=== PATIENT | female | born 1975 | race Two or more races ===

== ENCOUNTER 2020-03-30 22:08 | Emergency (ER) | payer OTHER, SELFPAY ==
[2020-03-30 22:14] VITALS: BP 180/90; PULSE 115; RESP 18; TEMP 37.1; O2SAT 100; BMI 38.2
[2020-03-30] MEDS: Acetaminophen 325 MG TABLET 650 MG PO (22:20)
[2020-03-30 23:05] LABS: MANUAL DIFF FLAG NO
[2020-03-30 23:07] LABS: Basophils Percent Auto 0.2 % (0-2); Eosinophils Absolute Auto 0.1 X10*3/uL (0.0-0.4); Eosinophils Percent Auto 1.1 % (0-4); Hematocrit 41.4 % (37-47); Hemoglobin 13.6 g/dl (12.0-16.0); Imm Gran Abs Auto 0.02 X10*3/uL (0.00-0.03); Imm Gran Pct Auto 0.2 % (0.0-0.4); Lymphocytes Absolute Auto 1.5 X10*3/uL (1.2-4.9); Lymphocytes Percent Auto 13.9 % (20-40); Mean Corpuscular HGB Conc 32.9 g/dl (31.0-35.0); Mean Corpuscular Volume 85.4 fL (80-98); Mean Platelet Volume 11.1 fL (9.4-12.3); Monocytes Absolute Auto 0.7 X10*3/uL (0.1-1.2); Monocytes Percent Auto 6.5 % (2-11); Neutrophils Absolute Auto 8.2 X10*3/uL (2.0-8.3); Neutrophils Percent Auto 78.1 % (45-73); Platelet Count 252 X10*3/uL (160-400); Red Blood Count 4.85 X10*6/uL (4.20-5.50); Red Cell Distribution Width 12.2 % (11.0-16.0); White Blood Count 10.5 X10*3/uL (4.8-10.8)
[2020-03-30 23:30] LABS: Alanine Aminotransferase 28 U/L (0-31); Albumin Level 4.1 g/dL (3.5-5.0); Alkaline Phosphatase 89 U/L (39-117); Anion Gap 11 (12-20); Aspartate Amino Transferase 16 U/L (5-31); Bilirubin Total 0.3 mg/dL (0.0-1.0); Blood Urea Nitrogen 8 mg/dL (9-16); Carbon Dioxide 30 mmol/L (22-29); Chloride 103 mmol/L (96-108); Creatinine Clr Calc Pharmacy 99.8; Estimated Glomerular Filt Rate > 60; Glucose Random 118 mg/dL (60-115); Sodium 140 mmol/L (135-145); Total Protein 7.8 g/dL (6.5-8.0)
--- NOTE | 2020-03-30 23:56 | ED.BACK ---
HPI - Back Pain/Injury General Chief Complaint: Abdominal Pain Stated Complaint: FLANK PAIN Time Seen by Provider: 03/30/20 23:54 Source: patient Mode of arrival: ambulatory Limitations: no limitations History of Present Illness HPI Narrative: Patient with chronic low back pain after epidural 22 years ago usually does need any pain medication was doing fine 3 days ago at 03:00 she woke up with increased pain on the left side going to the left lower quadrant since then pain coming and going getting worse lately, get worse on movement denies any urinary complaints no fever no nausea no vomiting MD elicited complaint: back pain Pertinent past history: prior back pain Onset (ago): day(s) (2) Timing: constant Severity: moderate Similar Symptoms Previously: No Quality: dull Location: left lower back Radiation: abdomen Exacerbating factors: movement Relieving factors: none Related Data Home Medications Medication Instructions Recorded Confirmed loratadine 10 mg tablet 10 mg PO DAILY 02/09/20 03/07/20 Previous Rx's Medication Instructions Recorded levofloxacin 500 mg PO DAILY 7 Days #7 tab 03/31/20 tramadol 50 mg PO Q6H PRN #20 tab 03/31/20 Allergies Allergy/AdvReac Type Severity Reaction Status Date / Time Penicillins [PENICILLINS] Allergy Unknown HIVES Verified 02/09/20 16:54 Review of Systems Review of Systems: Constitutional : No Weight loss, No Fever, No Chills ENT/Mouth : No sore throat, No Rhinorrhea Eyes: No Eye Pain, No Swelling Cardiovascular : No Chest Pain, no Dyspnea on Exertion, No Orthopnea, No Edema, No Palpitations, no SOB Respiratory : No Cough, No Sputum Gastrointestinal : no Nausea, No Vomiting, No Diarrhea, No abdominal Pain, No Hematochezia, No Melena Genitourinary : No Dysuria, No Urinary Frequency Musculoskeletal : No joint pain, No Myalgias, No Joint Swelling Skin : No Skin Lesions, No rash Neuro : No Weakness, No Numbness, No Dizziness, No Headache Psych : No Anxiety/Panic, No Depression Heme/Lymph: No Bruising, No Lymphadenopathy Endocrine : No Polyuria, No Polydipsia All other systems reviewed and are negative PMFSH Past Medical History Medical History Allergic rhinitis Chondromalacia, patella Obesity (BMI 30-39.9) Surgical History History of tubal ligation Previous section Family History Family History Father Esophageal cancer Mother Diabetes Social History Social History Smoking Status: Never smoker Advance Directives: No Advance Directives Information Provided: No Physical Exam Vital Signs: Vital Signs: Last Vital Signs Temp 99.2 F 03/31/20 00:08 Pulse 111 H 03/31/20 00:08 Resp 20 03/31/20 00:08 BP 145/92 H 03/31/20 00:08 Pulse Ox 100 03/31/20 00:08 Body Mass Index 38.2 Appearance: Alert. Oriented X3. No acute distress. Eyes: Pupils equal, round and reactive to light. ENT: Pharynx normal. Neck: Normal inspection. Neck supple. CVS: Normal heart rate and rhythm. Pulses normal. Respiratory: No respiratory distress. Breath sounds normal. Abdomen: Soft and mild deep tenderness left lower quadrant no rebound tenderness or guarding, Bowel sounds are present, no mass palpable, no CVA tenderness Skin: Skin warm and dry. Normal skin color. Normal skin turgor. Back: Diffuse tenderness L3-L4 area with no deformity Extremities: No lower extremity edema. Neuro: Oriented X 3. No motor deficit. No sensory deficit. Normal reflexes MDM - Back Pain/Injury MDM Narrative Medical decision making narrative: Patient with low back pain and left-sided abdominal pain CT scan negative for any acute pathology workup showed patient has a UTI but patient denies any dysuria or urinary symptoms. Patient had UTI in the past and had E coli which was sensitive to Levaquin will give her Levaquin and advised to follow with PCP Lab Data Attestation: I reviewed the patient's lab results. Result diagrams: 03/30/20 22:59 03/30/20 22:59 Labs: Lab Results 03/30/20 03/30/20 12 Range/Units 22:59 22:59 22:59 WBC 10.5 (4.8-10.8) X10*3/uL RBC 4.85 (4.20-5.50) X10*6/uL Hgb 13.6 (12.0-16.0) g/dl Hct 41.4 (37-47) % MCV 85.4 (80-98) fL MCH 28.0 (27.0-33.0) pg MCHC 32.9 (31.0-35.0) g/dl RDW 12.2 (11.0-16.0) % Plt Count 252 (160-400) X10*3/uL MPV 11.1 (9.4-12.3) fL Immature Gran % (Auto) 0.2 (0.0-0.4) % Neut % (Auto) 78.1 H (45-73) % Lymph % (Auto) 13.9 L (20-40) % [place] % (Auto) 6.5 (2-11) % Eos % (Auto) 1.1 (0-4) % Baso % (Auto) 0.2 (0-2) % Lymph # (Auto) 1.5 (1.2-4.9) X10*3/uL [place] # (Auto) 0.7 (0.1-1.2) X10*3/uL Eos # (Auto) 0.1 (0.0-0.4) X10*3/uL Baso # (Auto) 0.0 (0.0-0.2) X10*3/uL Abs Immat Gran (auto) 0.02 (0.00-0.03) X10*3/uL Absolute Neuts (auto) 8.2 (2.0-8.3) X10*3/uL Absolute Nucleated RBC 0.000 (0.0-0.012) X10*3/uL Nucleated RBC % (auto) 0.0 (0.0-0.2) /100WBC Hold Blue Top SEE NOTE Sodium 140 (135-145) mmol/L Potassium 4.0 (3.3-5.1) mmol/l Chloride 103 (96-108) mmol/L Carbon Dioxide 30 H (22-29) mmol/L Anion Gap 11 L (12-20) BUN 8 L (9-16) mg/dL Creatinine 0.81 (0.5-1.4) mg/dL Estim Creat Clear Calc 99.8 Estimated GFR > 60 Random Glucose 118 H (60-115) mg/dL Calcium 9.0 (8.4-10.2) mg/dL Total Bilirubin 0.3 (0.0-1.0) mg/dL AST 16 (5-31) U/L ALT 28 (0-31) U/L Alkaline Phosphatase 89 (39-117) U/L Total Protein 7.8 (6.5-8.0) g/dL Albumin 4.1 (3.5-5.0) g/dL Urine Color Urine Appearance Urine pH (5.0-8.0) Ur Specific [place] (1.005-1.025) Urine Protein (NEG-TRACE) MG/DL Urine Glucose (UA) (NEG) MG/DL Urine Ketones (NEG) MG/DL Urine Blood (NEG) Urine Nitrite (NEG) Ur Leukocyte Esterase (NEG) Urine RBC (0) /HPF Urine WBC (0-4) /HPF Ur Squamous Epith Cells /LPF Urine Bacteria /LPF Urine Mucus /LPF 03/31/20 Range/Units 00:11 WBC (4.8-10.8) X10*3/uL RBC (4.20-5.50) X10*6/uL Hgb (12.0-16.0) g/dl Hct (37-47) % MCV (80-98) fL MCH (27.0-33.0) pg MCHC (31.0-35.0) g/dl RDW (11.0-16.0) % Plt Count (160-400) X10*3/uL MPV (9.4-12.3) fL Immature Gran % (Auto) (0.0-0.4) % Neut % (Auto) (45-73) % Lymph % (Auto) (20-40) % [place] % (Auto) (2-11) % Eos % (Auto) (0-4) % Baso % (Auto) (0-2) % Lymph # (Auto) (1.2-4.9) X10*3/uL [place] # (Auto) (0.1-1.2) X10*3/uL Eos # (Auto) (0.0-0.4) X10*3/uL Baso # (Auto) (0.0-0.2) X10*3/uL Abs Immat Gran (auto) (0.00-0.03) X10*3/uL Absolute Neuts (auto) (2.0-8.3) X10*3/uL Absolute Nucleated RBC (0.0-0.012) X10*3/uL Nucleated RBC % (auto) (0.0-0.2) /100WBC Hold Blue Top Sodium (135-145) mmol/L Potassium (3.3-5.1) mmol/l Chloride (96-108) mmol/L Carbon Dioxide (22-29) mmol/L Anion Gap (12-20) BUN (9-16) mg/dL Creatinine (0.5-1.4) mg/dL Estim Creat Clear Calc Estimated GFR Random Glucose (60-115) mg/dL Calcium (8.4-10.2) mg/dL Total Bilirubin (0.0-1.0) mg/dL AST (5-31) U/L ALT (0-31) U/L Alkaline Phosphatase (39-117) U/L Total Protein (6.5-8.0) g/dL Albumin (3.5-5.0) g/dL Urine Color YELLOW Urine Appearance HAZY Urine pH 6.5 (5.0-8.0) Ur Specific [place] 1.015 (1.005-1.025) Urine Protein 1+ H (NEG-TRACE) MG/DL Urine Glucose (UA) NEG (NEG) MG/DL Urine Ketones NEG (NEG) MG/DL Urine Blood 2+ H (NEG) Urine Nitrite POS H (NEG) Ur Leukocyte Esterase 1+ H (NEG) Urine RBC 5-9 H (0) /HPF Urine WBC 76-150 H (0-4) /HPF Ur Squamous Epith Cells 3+ /LPF Urine Bacteria 3+ /LPF Urine Mucus 1+ /LPF Discharge Plan Discharge Clinical Impression: UTI (urinary tract infection) Qualifiers: Urinary tract infection type: acute cystitis Hematuria presence: without hematuria Qualified Code(s): N30.00 - Acute cystitis without hematuria Patient Disposition: Home, Self-Care Instructions: Urinary Tract Infection in Women (ED) Additional Instructions: Drink plenty of fluids take antibiotic as prescribed. Report to ER/PCP if high fever /vomiting/abdominal pain Prescriptions: New levofloxacin 500 mg tablet 500 mg PO DAILY 7 Days Qty: 7 RF: 0 tramadol 50 mg tablet 50 mg PO Q6H PRN (Reason: pain) Qty: 20 RF: 0 No Action loratadine 10 mg tablet 10 mg PO DAILY RF: 0
[2020-03-31 00:08] VITALS: BP 145/92; PULSE 111; RESP 20; TEMP 37.3; O2SAT 100
--- NOTE | 2020-03-31 00:15 | CT_ITS ---
EXAMINATION: CT ABDOMEN AND PELVIS WITHOUT CONTRAST CLINICAL INFORMATION: Left lower quadrant pain. COMPARISON: None. TECHNIQUE: Contiguous axial thin section helical images of the abdomen and pelvis were performed without oral or IV contrast. The data set was reformatted in the coronal and sagittal planes and reviewed on an independent workstation. DLP: 943 mGy-cm. FINDINGS: The visualized lung bases are clear. The visualized portions of the heart are unremarkable. The liver is of normal size and attenuation without focal lesions nor intrahepatic biliary ductal dilation. There is high attenuation within the gallbladder lumen which could correspond to high attenuation bile or several calculi. There is no wall thickening or discernible pericholecystic fluid. The spleen, pancreas, adrenal glands are unremarkable. Both kidneys are of normal size and attenuation without hydronephrosis or nephrolithiasis. There is no abdominal free fluid. There is neither mesenteric nor retroperitoneal lymphadenopathy. Normal unopacified loops of small and large bowel are identified. There is no pelvic free fluid. The urinary bladder is unremarkable. There is neither pelvic nor inguinal lymphadenopathy. Bone windows: Neither sclerotic nor lytic bone lesions are identified. CT/CT abdomen pelvis wo con IMPRESSION: No acute abdominal or pelvic inflammatory or infectious processes. High attenuation bile or calculi within the gallbladder lumen without wall thickening or pericholecystic fluid. Automated exposure control (Care Dose) Adjustment of the mA and/or kv according to patient size (this includes techniques or standardized protocols for targeted exams where dose is matched to indication / reason for exam; i.e. extremities or head).
[2020-03-31 00:20] LABS: Appearance Urine HAZY; Color Urine YELLOW; Glucose Urine UA NEG (NEG); Leukocyte Esterase Urine 1+ (NEG); Nitrite Urine POS (NEG); PH 6.5 (5.0-8.0); Specific Gravity - Urine 1.015 (1.005-1.025); Urine Blood 2+ (NEG); Urine Ketones NEG (NEG); Urine Protein 1+ MG/DL (NEG-TRACE)
[2020-03-31 00:27] LABS: Bacteria Urine 3+ /LPF; Mucus Urine 1+ /LPF; Squamous Epithelial Cell Urine 3+ /LPF
[2020-03-31] MEDS: levoFLOXacin 500 MG TABLET PO (01:39)
== END 2020-03-31 02:36 | disposition home or self-care (01) ==
PROVIDERS: Emergency Provider Internal Medicine; PCP Internal Medicine
DX: N30.00 Acute cystitis without hematuria (principal); M54.5 Low back pain; R10.32 Left lower quadrant pain; Z79.899 Other long term (current) drug therapy
CPT/HCPCS: 36415; 74176; 80053; 81001; 85025; 87086; 87088; 87186; 99284

== ENCOUNTER 2020-04-07 09:36 | Outpatient (REF) | payer OTHER, SELFPAY ==
[2020-04-07 10:07] LABS: MANUAL DIFF FLAG NO
[2020-04-07 10:24] LABS: Basophils Percent Auto 0.1 % (0-2); Eosinophils Absolute Auto 0.2 X10*3/uL (0.0-0.4); Eosinophils Percent Auto 2.2 % (0-4); Hematocrit 43.6 % (37-47); Hemoglobin 13.9 g/dl (12.0-16.0); Imm Gran Abs Auto 0.04 X10*3/uL (0.00-0.03); Imm Gran Pct Auto 0.6 % (0.0-0.4); Lymphocytes Absolute Auto 1.8 X10*3/uL (1.2-4.9); Lymphocytes Percent Auto 24.5 % (20-40); Mean Corpuscular HGB Conc 31.9 g/dl (31.0-35.0); Mean Corpuscular Hemoglobin 27.2 pg (27.0-33.0); Mean Corpuscular Volume 85.3 fL (80-98); Monocytes Absolute Auto 0.7 X10*3/uL (0.1-1.2); Monocytes Percent Auto 9.5 % (2-11); Neutrophils Absolute Auto 4.6 X10*3/uL (2.0-8.3); Neutrophils Percent Auto 63.1 % (45-73); Platelet Count 290 X10*3/uL (160-400); Red Blood Count 5.11 X10*6/uL (4.20-5.50); Red Cell Distribution Width 12.4 % (11.0-16.0); White Blood Count 7.3 X10*3/uL (4.8-10.8)
[2020-04-07 10:38] LABS: Alanine Aminotransferase 28 U/L (0-31); Albumin Level 4.2 g/dL (3.5-5.0); Alkaline Phosphatase 76 U/L (39-117); Anion Gap 12 (12-20); Aspartate Amino Transferase 18 U/L (5-31); Bilirubin Total 0.4 mg/dL (0.0-1.0); Blood Urea Nitrogen 11 mg/dL (9-16); Calcium 9.3 mg/dL (8.4-10.2); Carbon Dioxide 25 mmol/L (22-29); Chloride 105 mmol/L (96-108); Cholesterol 196 mg/dL; Estimated Glomerular Filt Rate > 60; Glucose Fasting 105 mg/dL (60-99); HDL Cholesterol 39 mg/dL; LDL Cholesterol Calculated 136 mg/dl; Potassium 4.6 mmol/l (3.3-5.1); Sodium 137 mmol/L (135-145); Triglycerides 109 mg/dL
[2020-04-07 10:41] LABS: Glucose Urine UA NEG (NEG); Leukocyte Esterase Urine TRACE (NEG); Nitrite Urine NEG (NEG); Specific Gravity - Urine >= 1.030 (1.005-1.025); Urine Blood NEG (NEG); Urine Ketones NEG (NEG); Urine Protein NEG (NEG-TRACE)
[2020-04-07 10:55] LABS: Appearance Urine CLEAR; Color Urine YELLOW
[2020-04-07 11:00] LABS: TSH reflex Free T4 1.29 mIU/mL (0.32-4.0); Vitamin D 25-OH Total 19.6 ng/mL (>30)
[2020-04-07 11:12] LABS: Bacteria Urine 1+ /LPF; Mucus Urine 1+ /LPF; RBC Urine 0 /HPF (0); Squamous Epithelial Cell Urine 3+ /LPF; WBC Urine 0-2 /HPF (0-4)
== END 2020-04-07 09:37 | disposition home or self-care (01) ==
LOC: HO.LAB 09:36
PROVIDERS: PCP Internal Medicine; Visit Provider Internal Medicine
DX: Z00.00 Encounter for general adult medical examination without abnormal findings (principal); N12 Tubulo-interstitial nephritis, not specified as acute or chronic; E78.00 Pure hypercholesterolemia, unspecified; E66.9 Obesity, unspecified; E55.9 Vitamin D deficiency, unspecified; K21.9 Gastro-esophageal reflux disease without esophagitis
CPT/HCPCS: 36415; 80053; 80061; 81001; 82306; 84443; 85025; 87086

== ENCOUNTER 2020-05-26 11:16 | Outpatient (REF) | payer OTHER, SELFPAY ==
[2020-05-26 13:53] LABS: MANUAL DIFF FLAG NO
[2020-05-26 14:14] LABS: Basophils Percent Auto 0.2 % (0-2); Eosinophils Absolute Auto 0.1 X10*3/uL (0.0-0.4); Eosinophils Percent Auto 1.3 % (0-4); Hematocrit 43.4 % (37-47); Hemoglobin 14.1 g/dl (12.0-16.0); Imm Gran Abs Auto 0.03 X10*3/uL (0.00-0.03); Imm Gran Pct Auto 0.4 % (0.0-0.4); Lymphocytes Absolute Auto 1.2 X10*3/uL (1.2-4.9); Lymphocytes Percent Auto 14.6 % (20-40); Mean Corpuscular HGB Conc 32.5 g/dl (31.0-35.0); Mean Corpuscular Hemoglobin 27.4 pg (27.0-33.0); Mean Corpuscular Volume 84.4 fL (80-98); Mean Platelet Volume 12.2 fL (9.4-12.3); Monocytes Absolute Auto 0.5 X10*3/uL (0.1-1.2); Monocytes Percent Auto 6.3 % (2-11); Neutrophils Absolute Auto 6.5 X10*3/uL (2.0-8.3); Neutrophils Percent Auto 77.2 % (45-73); Platelet Count 282 X10*3/uL (160-400); Red Blood Count 5.14 X10*6/uL (4.20-5.50); White Blood Count 8.4 X10*3/uL (4.8-10.8)
[2020-05-26 14:44] LABS: Alanine Aminotransferase 33 U/L (0-31); Albumin Level 4.3 g/dL (3.5-5.0); Alkaline Phosphatase 89 U/L (39-117); Amylase 43 U/L (28-100); Anion Gap 11 (12-20); Aspartate Amino Transferase 23 U/L (5-31); Bilirubin Total 0.5 mg/dL (0.0-1.0); Blood Urea Nitrogen 9 mg/dL (9-16); Calcium 9.1 mg/dL (8.4-10.2); Carbon Dioxide 30 mmol/L (22-29); Chloride 101 mmol/L (96-108); Estimated Glomerular Filt Rate > 60; Glucose Random 92 mg/dL (60-115); Lipase 19 U/L (8-78); Potassium 3.9 mmol/L (3.3-5.1); Sodium 138 mmol/L (135-145); Total Protein 7.8 g/dL (6.5-8.0)
== END 2020-05-26 11:17 | disposition home or self-care (01) ==
LOC: HO.HMGCLDS 11:16
PROVIDERS: PCP Internal Medicine; Visit Provider Nurse Practitioner Family
DX: R10.13 Epigastric pain (principal)
CPT/HCPCS: 36415; 80053; 82150; 83690; 85025

== ENCOUNTER 2020-06-07 14:57 | Inpatient (IN) | payer OTHER, SELFPAY ==
[2020-06-07] VITALS (8 sets, daily range): BP systolic 120–160; BP diastolic 78–98; PULSE 70–80; RESP 18–20; TEMP 36.6–37; O2SAT 96–98; BMI 41.0
--- NOTE | ~2020-06-07 | MR_ITS ---
EXAMINATION: MR ABDOMEN WITHOUT CONTRAST CLINICAL INFORMATION: Gallstones. Evaluate for common bile duct stone. COMPARISON: Previous abdominal ultrasound from yesterday and CT scan of the abdomen and pelvis March 2020 TECHNIQUE: MR abdomen is performed without gadolinium contrast. MRCP sequences were also performed. Exam is limited due to motion artifact. FINDINGS: LUNG BASES: The visualized lung bases are unremarkable. LIVER, GALLBLADDER, AND BILIARY TREE: The liver is normal in size, smooth in contour, and normal in signal. No focal hepatic lesion or intrahepatic biliary ductal dilatation is present. There are gallstones in the gallbladder. The gallbladder is normal in size. There may be mild gallbladder wall thickening and edema. Gallbladder wall thickness measures 4-5 mm. Extrahepatic bile ducts are normal in caliber. MRCP sequences are limited due to motion artifact. No common bile duct stone is seen. PANCREAS: Unremarkable. SPLEEN: Unremarkable. ADRENAL GLANDS: Unremarkable. KIDNEYS AND URETERS: The kidneys are normal in size and shape. No hydronephrosis. No perinephric stranding. GASTROINTESTINAL TRACT: No bowel obstruction. No ascites or fluid collection. ABDOMINAL WALL: No significant hernia is appreciated. LYMPH NODES: No lymphadenopathy. VASCULAR: Unremarkable. OSSEOUS STRUCTURES: Marrow signal normal. MR/MR MRCP IMPRESSION: Limited exam due to motion artifact. No intrahepatic or extrahepatic biliary duct dilatation or common bile duct stone seen. Gallstones in the gallbladder and question mild gallbladder wall thickening measuring 4-5 mm and gallbladder wall edema. Findings are questionable for acute cholecystitis. This could be further evaluated with HIDA scan if clinically indicated.
--- NOTE | ~2020-06-07 | US_ITS ---
EXAMINATION: US ABDOMEN LIMITED CLINICAL INFORMATION: Right upper quadrant pain with elevated AST, ALT and alkaline phosphatase. COMPARISON: None TECHNIQUE: Real-time imaging of the right upper quadrant abdominal viscera. FINDINGS: PANCREAS: Normal. LIVER: Normal. The liver is normal in size. The liver contour is normal. Parenchymal echogenicity is normal. No focal hepatic lesion. There is no intrahepatic biliary duct dilatation seen. GALLBLADDER: 3 gallstones are present, the largest measuring 1.8 x 1.2 x 1.7 cm. The gallbladder is physiologically distended without evidence wall thickening or pericholecystic fluid. COMMON BILE DUCT: Common bile duct is mildly dilated at 0.9 cm. No stones are seen in the common bile duct.. RIGHT KIDNEY: No hydronephrosis. No renal calculi or focal parenchymal lesions. The kidney measures 11.9 cm in maximum dimension. FREE FLUID: None. US/US abdomen limited IMPRESSION: 1. Cholelithiasis without evidence of cholecystitis. 2. Mild dilatation of the common bile duct at 0.9 cm without intrahepatic biliary ductal dilatation.
[2020-06-07 17:16] LABS: MANUAL DIFF FLAG NO
[2020-06-07 17:19] LABS: Basophils Percent Auto 0.1 % (0-2); Eosinophils Absolute Auto 0.1 X10*3/uL (0.0-0.4); Eosinophils Percent Auto 1.2 % (0-4); Hemoglobin 14.1 g/dl (12.0-16.0); Imm Gran Abs Auto 0.02 X10*3/uL (0.00-0.03); Imm Gran Pct Auto 0.2 % (0.0-0.4); Lymphocytes Absolute Auto 1.1 X10*3/uL (1.2-4.9); Lymphocytes Percent Auto 12.2 % (20-40); Mean Corpuscular HGB Conc 33.6 g/dl (31.0-35.0); Mean Corpuscular Volume 83.3 fL (80-98); Mean Platelet Volume 11.4 fL (9.4-12.3); Monocytes Absolute Auto 0.7 X10*3/uL (0.1-1.2); Monocytes Percent Auto 7.6 % (2-11); Neutrophils Absolute Auto 6.8 X10*3/uL (2.0-8.3); Neutrophils Percent Auto 78.7 % (45-73); Platelet Count 244 X10*3/uL (160-400); Red Blood Count 5.04 X10*6/uL (4.20-5.50); Red Cell Distribution Width 12.5 % (11.0-16.0); White Blood Count 8.6 X10*3/uL (4.8-10.8)
[2020-06-07 17:31] LABS: Glucose Urine UA NEG (NEG); Leukocyte Esterase Urine NEG (NEG); Nitrite Urine NEG (NEG); PH 6.5 (5.0-8.0); Specific Gravity - Urine 1.015 (1.005-1.025); Urine Blood NEG (NEG); Urine Ketones NEG (NEG); Urine Protein NEG (NEG-TRACE)
[2020-06-07 17:35] LABS: Appearance Urine CLEAR; Color Urine YELLOW
[2020-06-07 18:07] LABS: Alanine Aminotransferase 433 U/L (0-31); Albumin Level 4.3 g/dL (3.5-5.0); Alkaline Phosphatase 171 U/L (39-117); Anion Gap 14 (12-20); Aspartate Amino Transferase 406 U/L (5-31); Bilirubin Total 3.7 mg/dL (0.0-1.0); Blood Urea Nitrogen 8 mg/dL (9-16); Carbon Dioxide 28 mmol/L (22-29); Chloride 103 mmol/L (96-108); Creatinine Clr Calc Pharmacy 98.6; Estimated Glomerular Filt Rate > 60; Glucose Random 95 mg/dL (60-115); Lipase 32 U/L (8-78); Potassium 3.8 mmol/L (3.3-5.1); Sodium 141 mmol/L (135-145); Total Protein 7.9 g/dL (6.5-8.0)
--- NOTE | 2020-06-07 19:46 | ED.ABDPAIN ---
HPI - Abdominal Pain General Chief Complaint: Abdominal Pain Stated Complaint: Abdominal pain Time Seen by Provider: 06/07/20 21:14 Source: patient Mode of arrival: ambulatory Limitations: no limitations History of Present Illness HPI narrative: 44-year-old female with past medical history of pyelonephritis, GERD, hyperlipidemia, obesity, chondromalacia of the patella presents with approximately 2 months of right upper quadrant abdominal pain. She presents today because pain is 10/10 and radiates to her right shoulder. Pain gets worse after eating, she did eat Portuguese food last night which increased her pain. She has not been able to eat since. She does not report any prior abdominal surgeries except for C-sections. She does not report any fevers, chills, chest pain or pressure, palpitations, abdominal distention, dysuria, hematuria, melena, hematochezia, diarrhea, constipation, dizziness, weakness, loss of balance, or any other concerning symptoms. MD elicited complaint: abdominal pain Onset (ago): month(s) (2) Pain Consistency: constant (Over the past 3 days) and intermittent (Over the past 2 months) Location: RUQ Severity: severe Pain scale (0-10): 10 Quality: stabbing and aching Radiation: back Exacerbating factors: eating and movement Relieving factors: nothing Treatments prior to arrival: NSAIDs Related Data Home Medications Medication Instructions Recorded Confirmed loratadine 10 mg tablet 10 mg PO DAILY 02/09/20 06/07/20 albuterol sulfate 90 mcg/actuation 1 - 2 puff INHALATION Q6H PRN 04/05/20 06/07/20 aerosol inhaler Previous Rx's Medication Instructions Recorded omeprazole magnesium 20 mg 20 mg PO DAILY PRN 90 Days #90 tab 04/05/20 tablet,delayed release famotidine 20 mg tablet 20 mg PO BEDTIME #30 tab 05/26/20 Allergies Allergy/AdvReac Type Severity Reaction Status Date / Time Penicillins [PENICILLINS] Allergy Unknown HIVES Verified 06/07/20 16:46 Review of Systems Review of Systems Constitutional: No Weight loss, No Fever, No Chills, No Night Sweats, No Fatigue, No Malaise ENT/Mouth: No Hearing loss, No Ear Pain, No Nasal Congestion, No Sinus Pain, No sore throat, No Rhinorrhea, No Swallowing Difficulty Eyes: No Eye Pain, No Swelling, No Redness, No Vision Changes Cardiovascular: No Chest Pain, No SOB, No Dyspnea on Exertion, No Orthopnea, No Edema, No Palpitations Respiratory: No Cough, No Sputum, No Wheezing, No Smoke Exposure, No Dyspnea Gastrointestinal: Positive right upper quadrant abdominal pain radiating to the back, Positive Nausea, no Vomiting, no Diarrhea, No Hematochezia, No Melena Genitourinary: no irregular bleeding, No Dysuria, No Urinary Frequency, No Hematuria, No Urinary Incontinence, No Urgency, No Flank Pain, No Urinary Flow Changes, No Hesitancy Musculoskeletal: No joint pain, No Myalgias, No Joint Swelling Skin: No Skin Lesions, No rash Neuro: No Weakness, No Numbness, No Paresthesias, No Loss of Consciousness, No Dizziness, No Headache Psych: No Anxiety/Panic, No Depression, No SI/HI/AH/VH, No Social Issues Heme/Lymph: No Bruising, No Bleeding,No Lymphadenopathy Endocrine: No Polyuria, No Polydipsia, No Temperature Intolerance Yes all other systems are reviewed and are negative Physical Exam Vital Signs: Vital Signs: Last Vital Signs Temp 97.3 F 06/08/20 00:00 Pulse 73 06/08/20 00:00 Resp 18 06/08/20 00:00 BP 132/67 06/08/20 00:00 Pulse Ox 98 06/08/20 00:00 Body Mass Index 41.0 Appearance: Alert. Oriented X3. Moderate distress. Eyes: Pupils equal, round and reactive to light. EOMI, sclera nonicteric ENT: Pharynx normal. Moist mucous membranes Neck: Normal inspection. Neck supple. No JVD CVS: Normal heart rate and rhythm. Pulses normal. Respiratory: No respiratory distress. Lung sounds clear to auscultation all lobes Abdomen: Soft and positive Munoz's, nontender otherwise Skin: Skin warm and dry. Normal skin color. Normal skin turgor. Extremities: No lower extremity edema. Neuro: No motor deficit. No sensory deficit. Cranial nerves 2-12 intact, gait well balanced well coordinated Course Course Course Narrative: 44-year-old female with past medical history of pyelonephritis, GERD, hyperlipidemia, obesity, chondromalacia of the patella presents with approximately 2 months of right upper quadrant abdominal pain. Labs indicate elevated bilirubin is 3.7, AST 406, ALT 433, alk-phos 171. Highly suspicious for cholecystitis, cholelithiasis. Will order ultrasound of the right upper quadrant and give pain management with fluid resuscitation. Ultrasound indicative of cholelithiasis without cholecystitis or obstruction, bile duct dilated at 0.9 mm, tiger text discussion with Dr Steel. Plan of care is to admit to surgery. Detailed discussion with patient regarding all diagnostic findings as well as plan for admission, patient verbalized understanding of and agrees to plan of care. Consultations Consultation #1: Damián Time: 21:19 MDM - Abdominal Pain Differential Diagnosis Differential diagnosis: Likely abdominal pain, acute appendicitis, calculus of kidney, constipation and pancreatitis Differential diagnosis narrative:: Cholelithiasis, cholecystitis Medical Records Attestation: I reviewed the patient's medical records. Lab Data Attestation: I reviewed the patient's lab results. Result diagrams: 06/07/20 17:08 06/07/20 17:08 Labs: Lab Results 06/07/20 06/07/20 06/07/20 Range/Units 17:08 17:08 17:08 WBC 8.6 (4.8-10.8) X10*3/uL RBC 5.04 (4.20-5.50) X10*6/uL Hgb 14.1 (12.0-16.0) g/dl Hct 42.0 (37-47) % MCV 83.3 (80-98) fL MCH 28.0 (27.0-33.0) pg MCHC 33.6 (31.0-35.0) g/dl RDW 12.5 (11.0-16.0) % Plt Count 244 (160-400) X10*3/uL MPV 11.4 (9.4-12.3) fL Immature Gran % (Auto) 0.2 (0.0-0.4) % Neut % (Auto) 78.7 H (45-73) % Lymph % (Auto) 12.2 L (20-40) % Andrew % (Auto) 7.6 (2-11) % Eos % (Auto) 1.2 (0-4) % Baso % (Auto) 0.1 (0-2) % Lymph # (Auto) 1.1 L (1.2-4.9) X10*3/uL Andrew # (Auto) 0.7 (0.1-1.2) X10*3/uL Eos # (Auto) 0.1 (0.0-0.4) X10*3/uL Baso # (Auto) 0.0 (0.0-0.2) X10*3/uL Abs Immat Gran (auto) 0.02 (0.00-0.03) X10*3/uL Absolute Neuts (auto) 6.8 (2.0-8.3) X10*3/uL Absolute Nucleated RBC 0.000 (0.0-0.012) X10*3/uL Nucleated RBC % (auto) 0.0 (0.0-0.2) /100WBC Hold Blue Top SEE NOTE Sodium (135-145) mmol/L Potassium (3.3-5.1) mmol/L Chloride (96-108) mmol/L Carbon Dioxide (22-29) mmol/L Anion Gap (12-20) BUN (9-16) mg/dL Creatinine (0.5-1.4) mg/dL Estim Creat Clear Calc Estimated GFR Random Glucose (60-115) mg/dL Calcium (8.4-10.2) mg/dL Total Bilirubin (0.0-1.0) mg/dL AST (5-31) U/L ALT (0-31) U/L Alkaline Phosphatase (39-117) U/L Total Protein (6.5-8.0) g/dL Albumin (3.5-5.0) g/dL Lipase (8-78) U/L Urine Color YELLOW Urine Appearance CLEAR Urine pH 6.5 (5.0-8.0) Ur Specific [place] 1.015 (1.005-1.025) Urine Protein NEG (NEG-TRACE) MG/DL Urine Glucose (UA) NEG (NEG) MG/DL Urine Ketones NEG (NEG) MG/DL Urine Blood NEG (NEG) Urine Nitrite NEG (NEG) Ur Leukocyte Esterase NEG (NEG) 06/07/20 Range/Units 17:08 WBC (4.8-10.8) X10*3/uL RBC (4.20-5.50) X10*6/uL Hgb (12.0-16.0) g/dl Hct (37-47) % MCV (80-98) fL MCH (27.0-33.0) pg MCHC (31.0-35.0) g/dl RDW (11.0-16.0) % Plt Count (160-400) X10*3/uL MPV (9.4-12.3) fL Immature Gran % (Auto) (0.0-0.4) % Neut % (Auto) (45-73) % Lymph % (Auto) (20-40) % [place] % (Auto) (2-11) % Eos % (Auto) (0-4) % Baso % (Auto) (0-2) % Lymph # (Auto) (1.2-4.9) X10*3/uL Andrew # (Auto) (0.1-1.2) X10*3/uL Eos # (Auto) (0.0-0.4) X10*3/uL Baso # (Auto) (0.0-0.2) X10*3/uL Abs Immat Gran (auto) (0.00-0.03) X10*3/uL Absolute Neuts (auto) (2.0-8.3) X10*3/uL Absolute Nucleated RBC (0.0-0.012) X10*3/uL Nucleated RBC % (auto) (0.0-0.2) /100WBC Hold Blue Top Sodium 141 (135-145) mmol/L Potassium 3.8 (3.3-5.1) mmol/L Chloride 103 (96-108) mmol/L Carbon Dioxide 28 (22-29) mmol/L Anion Gap 14 (12-20) BUN 8 L (9-16) mg/dL Creatinine 0.79 (0.5-1.4) mg/dL Estim Creat Clear Calc 98.6 Estimated GFR > 60 Random Glucose 95 (60-115) mg/dL Calcium 9.0 (8.4-10.2) mg/dL Total Bilirubin 3.7 H (0.0-1.0) mg/dL AST 406 H (5-31) U/L ALT 433 H (0-31) U/L Alkaline Phosphatase 171 H D (39-117) U/L Total Protein 7.9 (6.5-8.0) g/dL Albumin 4.3 (3.5-5.0) g/dL Lipase 32 (8-78) U/L Urine Color Urine Appearance Urine pH (5.0-8.0) Ur Specific [place] (1.005-1.025) Urine Protein (NEG-TRACE) MG/DL Urine Glucose (UA) (NEG) MG/DL Urine Ketones (NEG) MG/DL Urine Blood (NEG) Urine Nitrite (NEG) Ur Leukocyte Esterase (NEG) Imaging Data Abdominal ultrasound: Attestation: I personally reviewed and interpreted this imaging study as follows: Radiologist's impression: EXAMINATION: US ABDOMEN LIMITED CLINICAL INFORMATION: Right upper quadrant pain with elevated AST, ALT and alkaline phosphatase. COMPARISON: None TECHNIQUE: Real-time imaging of the right upper quadrant abdominal viscera. FINDINGS: PANCREAS: Normal. LIVER: Normal. The liver is normal in size. The liver contour is normal. Parenchymal echogenicity is normal. No focal hepatic lesion. There is no intrahepatic biliary duct dilatation seen. GALLBLADDER: 3 gallstones are present, the largest measuring 1.8 x 1.2 x 1.7 cm. The gallbladder is physiologically distended without evidence wall thickening or pericholecystic fluid. COMMON BILE DUCT: Common bile duct is mildly dilated at 0.9 cm. No stones are seen in the common bile duct.. RIGHT KIDNEY: No hydronephrosis. No renal calculi or focal parenchymal lesions. The kidney measures 11.9 cm in maximum dimension. FREE FLUID: None. US/US abdomen limited IMPRESSION: 1. Cholelithiasis without evidence of cholecystitis. 2. Mild dilatation of the common bile duct at 0.9 cm without intrahepatic biliary ductal dilatation. Critical Care Time Critical Care Time Critical Care Time: Yes Total Critical Care Time: 45 Attestation: I have personally provided critical care time exclusive of time spent on separately billable procedures. Time includes review of laboratory data, radiology results, discussion with consultants, and monitoring for potential decompensation. Interventions were performed as documented. Discharge Plan Discharge Clinical Impression: Cholelithiasis Qualifiers: Cholelithiasis location: gallbladder Cholecystitis presence: without cholecystitis Biliary obstruction: without biliary obstruction Qualified Code(s): K80.20 - Calculus of gallbladder without cholecystitis without obstruction Patient Disposition: Admitted As Inpatient Interventions: Admission Worksheet (ED) Last Done: 06/08/20 00:07 Discharge Date/Time: 06/08/20 00:56 [facility] Past Medical History Attestation statement: The following information was validated with the patient. Source: old records reviewed Medical History Allergic rhinitis Annual physical exam Chondromalacia patellae of right knee Chondromalacia, patella GERD without esophagitis Obesity (BMI 30-39.9) Pure hypercholesterolemia Vitamin D deficiency Surgical History History of tubal ligation Previous section Family History Family History Father Esophageal cancer Mother Diabetes Social History Social History Alcohol intake: current Alcohol intake frequency: holidays/special occasions only Smoking Status: Never smoker Advance Directives: No Advance Directives Information Provided: Yes
[2020-06-07] MEDS: 0.9 % Sodium Chloride 1,000 ML 999 ML IVCONT (20:00)
[2020-06-07] MEDS: ondansetron HCL 4 MG/2 ML VIAL IVPUSH (20:02)
[2020-06-07] MEDS: Morphine Sulfate 4 MG/ML CARTRIDGE IVPUSH (20:02)
[2020-06-07] MEDS: HYDROmorphone HCl 1 MG/ML SYRINGE IVPUSH (21:54)
[2020-06-07 22:07] LABS: COVID-19 Test Negative (Negative)
[2020-06-07] MEDS: levoFLOXacin/D5W 500 MG/100 ML PIGGYBACK 100 MG IV (22:10)
[2020-06-07] MEDS: metroNIDAZOLE/NS 500 MG/100 ML PIGGYBACK 100 MG IV (23:29)
--- NOTE | 2020-06-07 23:39 | PC.NURSE ---
rn will call back for report.
[2020-06-08] VITALS: BP 132/67; PULSE 73; RESP 18; TEMP 36.3; O2SAT 98
[2020-06-08 00:13] VITALS: BMI 41.8
[2020-06-08] MEDS: Dextrose 5 % and Lactated Ring 1,000 ML 125 ML IVCONT ×4 (00:59→20:39)
[2020-06-08] MEDS: ondansetron HCL 4 MG/2 ML VIAL IVPUSH (01:06)
[2020-06-08] MEDS: 0.9 % Sodium Chloride Flush 3 ML SYRINGE IVFLUSH ×4 (01:06→23:41)
--- NOTE | 2020-06-08 05:34 | PM.HPGS ---
History of Present Illness History of Present Illness Date of Service: 06/08/20 Chief complaint: Abdominal pain Narrative: Jose Keen is a 44 year old female presenting with complaints of epigastric abdominal pain 10 out of 10 in severity starting after eating Indonesian food for dinner. She reports similar pain for the last two months, this being the worst episode. She denies fever, chills, or other bowel changes but does report nausea and vomiting. Work up in the ED revealed elevated LFTs and a normal WBC. US of the abdomen reveals gallstones in the gallbladder and a mildly dilated CBD. No Wall thickening or pericholecystic fluid. No CBD stones are noted. This morning, she reports feeling much improved with no further abdominal pain, nausea or vomiting. Review of Systems Review of Systems: Yes all other systems are reviewed and are negative Constitutional: Constitutional: Denies chills, Denies fever(s), Denies headache(s) and Denies poor appetite ENT: Denies dizziness and Denies headache(s) Cardiovascular: Cardiovascular: Denies chest pain, Denies rapid heart rate, Denies palpitations and Denies slow heart rate Respiratory: Respiratory: Denies chest congestion, Denies cough, Denies pain on inspiration and Denies wheezing Gastrointestinal: Gastrointestinal: Reports abdominal pain, Denies bloating, Denies change in stool character, Denies constipation, Denies diarrhea, Reports nausea, Reports vomiting and Denies hematemesis Musculoskeletal: Musculoskeletal: Denies back pain, Denies arthralgias, Denies joint swelling and Denies numbness Integumentary/Breasts: Skin/Breast: Denies change in pigmentation, Denies erythema and Denies rash Neurologic: Denies dizziness, Denies headache(s) and Denies numbness Psychiatric: Psychiatric: Denies anxiety and Denies depression Endocrine: Endocrine: Denies palpitations Hematologic/Lymphatic: Hematologic/Lymphatic: Denies easy bleeding, Denies easy bruising and Denies lymphadenopathy Allergic/Immunologic: Allergic/Immunologic: Denies wheezing PMFSH Past Medical History Medical History Allergic rhinitis Annual physical exam Chondromalacia patellae of right knee Chondromalacia, patella GERD without esophagitis Obesity (BMI 30-39.9) Pure hypercholesterolemia Vitamin D deficiency Family History Family History Father Esophageal cancer Mother Diabetes Surgical History Surgical History History of tubal ligation Previous section Social History Social History Household Members: Spouse Housing: House Do you presently have visiting nurse or other home services: No Alcohol intake: current Alcohol intake frequency: holidays/special occasions only Smoking Status: Never smoker Use of substances other than those prescribed or required for medical reasons: No Have you been hit, kicked, punched, or otherwise hurt by someone within the past year? If so, by whom?: No Do you feel safe in your current relationship?: Yes Is there a partner from a previous relationship who is making you feel unsafe now?: No Are you made to feel afraid or neglected: No Advance Directives: No Advance Directives Information Provided: Yes Do you have thoughts of harming others: None Do you have a plan to hurt others: No Plan Recently lost weight without trying: No Meds Allergies Allergy/AdvReac Type Severity Reaction Status Date / Time Penicillins [PENICILLINS] Allergy Unknown HIVES Verified 06/07/20 16:46 Active Medications: Current Medications Generic Name Dose Route Start Last Admin Trade Name Freq PRN Reason Stop Dose Admin Acetaminophen 650 mg 06/07/20 21:29 Acetaminophen 325 Mg Tablet PO Q6H PRN Pain, Mild (Pain Scale 1-3) Docusate Sodium 100 mg 06/07/20 21:29 Docusate Sodium 100 Mg Capsule PO DAILY PRN Constipation Hydromorphone HCl 0.5 mg 06/07/20 21:35 Hydromorphone Hcl 0.5 Mg/0.5 Ml Syringe IVPUSH Q4H PRN Pain, Severe (Pain Scale 7-10) Dextrose/Lactated Ringer's 1,000 mls @ 125 mls/hr 06/07/20 21:30 06/08/20 00:59 D5lr IVCONT 125 mls/hr .Q8H LUIS ALFREDO Administration Levofloxacin 500 mg in 100 mls @ 100 mls/hr 06/07/20 22:00 06/08/20 00:58 Levaquin IV Infused Q24H LUIS ALFREDO Infusion Metronidazole 500 mg in 100 mls @ 100 mls/hr 06/07/20 22:00 06/08/20 00:58 Flagyl IV Infused Q8H LUIS ALFREDO Infusion Ondansetron HCl 4 mg 06/07/20 21:29 06/08/20 01:06 Ondansetron Hcl 4 Mg/2 Ml Vial IVPUSH 4 mg Q8H PRN Administration Nausea and Vomiting Oxycodone HCl 5 mg 06/07/20 21:35 Oxycodone Hcl Immed Release 5 Mg Tablet PO Q6H PRN Pain, Moderate (Pain Scale 4-6 Pharmacy Consult 1 each 06/07/20 21:29 Consult Rx Perform Med Rec MISCELLANE ONCE PRN Consult order Sodium Chloride 3 ml 06/08/20 00:00 06/08/20 01:06 0.9 % Sodium Chloride Flush 3 Ml Syringe IVFLUSH 3 ml QSHIFT LUIS ALFREDO Administration Zolpidem Tartrate 5 mg 06/07/20 21:29 Zolpidem Tartrate 5 Mg Tablet PO BEDTIME PRN Insomnia Home Medications Medication Instructions Recorded Confirmed Last Taken Type loratadine 10 mg tablet 10 mg PO DAILY 02/09/20 06/07/20 Unknown History albuterol sulfate 90 mcg/actuation 1 - 2 puff INHALATION Q6H PRN 04/05/20 06/07/20 Unknown History aerosol inhaler Physical Exam Vital Signs: Vital Signs: Last Vital Signs Temp 97.3 F 06/08/20 00:00 Pulse 73 06/08/20 00:00 Resp 18 06/08/20 00:00 BP 132/67 06/08/20 00:00 Pulse Ox 98 06/08/20 00:00 Body Mass Index 41.8 Const: General: cooperative, healthy appearing, comfortable, no acute distress, well developed, alert and awake Orientation/consciousness: patient oriented x3 Eyes: General: appearance normal, both eyes and all related structures Sclerae: sclerae normal EOM: EOMs intact bilaterally Neck: Neck: Yes normal visual inspection, Yes full ROM and Yes supple Resp: Effort & Inspection: normal respiratory effort, no cough, not labored, no stridor and not tachypneic Cardio: Jugular venous distension: no JVD Rate: regular rate Rhythm: regular rhythm GI: Inspection: Yes normal to inspection Palpation (GI): Soft to palpation, nontender (negative Munoz's sign), no guarding, not rigid and No Rebound tenderness present Percussion: Yes normal to percussion Auscultation: normal bowel sounds Rectal Exam - Female: deferred Skin: General skin exam: no rashes or lesions noted and no jaundice Wounds: no wounds Neuro: General: patient oriented x3 Extrem: General: Yes full ROM Results Results Labs: Short CBC 06/07/20 Range/Units 17:08 WBC 8.6 (4.8-10.8) X10*3/uL Hgb 14.1 (12.0-16.0) g/dl Hct 42.0 (37-47) % Plt Count 244 (160-400) X10*3/uL BMP 06/07/20 17:08 Sodium 141 Potassium 3.8 Chloride 103 Carbon Dioxide 28 BUN 8 L Creatinine 0.79 Calcium 9.0 Liver Function 06/07/20 Range/Units 17:08 Total Bilirubin 3.7 H (0.0-1.0) mg/dL AST 406 H (5-31) U/L ALT 433 H (0-31) U/L Alkaline Phosphatase 171 H D (39-117) U/L Albumin 4.3 (3.5-5.0) g/dL Urine 06/07/20 Range/Units 17:08 Urine Color YELLOW Urine Appearance CLEAR Urine pH 6.5 (5.0-8.0) Ur Specific [place] 1.015 (1.005-1.025) Urine Protein NEG (NEG-TRACE) MG/DL Urine Glucose (UA) NEG (NEG) MG/DL Assessment and Plan (1) Acute cholecystitis due to biliary calculus: Status: Acute 44 year old female patient presenting with multiple episodes of abdominal pain initially in the epigastrium, radiating to the right upper quadrant, found to have tenderness in the right upper quadrant last night, with elevated LFT's. U/S revealed gallstones in the gallbladder and a mildly dilated CBD with no stones visable. Findings suggestive of a passed stone. Patient reports nausea is improved, although feels the Dilaudid also made her nauseated. Will switch to IV Morphine prn pain. I discussed treatment options including discharge to home vs. Laparoscopic or possible open cholecystectomy. After a review of the procedure, alternatives and risks, she consents to a Laparoscopic or possible open cholecystectomy. She will be added on to the OR schedule for later today. Procedures Date of Service Date of Service: 06/08/20
[2020-06-08] MEDS: metroNIDAZOLE/NS 500 MG/100 ML PIGGYBACK 100 MG IV ×3 (05:57→22:38)
--- NOTE | 2020-06-08 07:44 | MHC.SHP ---
Pre-Procedural Eval Section A The patient is an INPATIENT: Yes Section B Chief Complaint: Abdominal pain Allergies: Allergies Allergy/AdvReac Type Severity Reaction Status Date / Time Penicillins [PENICILLINS] Allergy Unknown HIVES Verified 06/07/20 16:46 Plan Diagnosis/Plan: Unchanged I have reviewed the history and physical and performed a pertinent physical examination on my patient. No changes have occurred unless specified.
[2020-06-08 07:48] VITALS: BP 132/65; PULSE 76; RESP 18; TEMP 36.7; O2SAT 97
[2020-06-08 08:52] LABS: Alanine Aminotransferase 364 U/L (0-31); Albumin Level 3.6 g/dL (3.5-5.0); Alkaline Phosphatase 166 U/L (39-117); Aspartate Amino Transferase 251 U/L (5-31); Bilirubin Direct 3.4 mg/dL (0.0-0.5); Bilirubin Total 4.7 mg/dL (0.0-1.0); Total Protein 6.5 g/dL (6.5-8.0)
--- NOTE | 2020-06-08 09:04 | MHC.CM.PN ---
EMR REVIEWED, PT ADMITTED FOR ABDOMINAL PAIN AND WILL HAVE CHOLEY TODAY 06/08/20, CM MET WITH PT WHO LIVED WITH , PT IS INDEPENDENT WITH ALL CARE AND DENIES USE OF DME, NO HOME SERVICES, PT VERIFIES PCP AND PHARMACY, PT DENIES HAVING A HEALTH CARE PROXY AND DECLINES ASSISTANCE COMPLETING ONE AT THIS TIME. DISCHARGE PLAN: HOME SELF-CARE [facility] TO TRANSPORT : [facility] [phone]
--- NOTE | 2020-06-08 10:19 | HO.ANESPROP2 ---
Documented by User: Carroll Narayanan 06/08/20 10:20 [facility] Active Problems Active Problems: All Active Problems (Updated 06/08/20 @ 05:40 by Dayton Steel MD) Acute cholecystitis due to biliary calculus (Acute) Cholelithiasis (Acute) Nausea & vomiting (Acute) Epigastric pain (Acute) Pyelonephritis (Acute) Vitamin D deficiency (Acute) GERD without esophagitis (Acute) Chondromalacia patellae of right knee (Acute) Pure hypercholesterolemia (Acute) Annual physical exam (Acute) Obesity (BMI 30-39.9) (Acute) Chondromalacia, patella (Acute) Allergic rhinitis (Acute) Past Medical History Medical History Allergic rhinitis Annual physical exam Chondromalacia patellae of right knee Chondromalacia, patella GERD without esophagitis Obesity (BMI 30-39.9) Pure hypercholesterolemia Vitamin D deficiency Family History Family History Father Esophageal cancer Mother Diabetes Surgical History Surgical History History of tubal ligation Previous section Social History Social History Household Members: Spouse Housing: House Do you presently have visiting nurse or other home services: No Alcohol intake: current Alcohol intake frequency: holidays/special occasions only Smoking Status: Never smoker Use of substances other than those prescribed or required for medical reasons: No Currently Displaying Signs/Symptoms of Drug Intoxication Withdrawal: No Have you been hit, kicked, punched, or otherwise hurt by someone within the past year? If so, by whom?: No Do you feel safe in your current relationship?: Yes Is there a partner from a previous relationship who is making you feel unsafe now?: No Are you made to feel afraid or neglected: No Advance Directives: No Advance Directives Information Provided: Yes Do you have thoughts of harming others: None Do you have a plan to hurt others: No Plan Recently lost weight without trying: No service: No Current occupational status: employed Meds Allergies Allergy/AdvReac Type Severity Reaction Status Date / Time Penicillins [PENICILLINS] Allergy Unknown HIVES Verified 06/07/20 16:46 Active Medications: Current Medications Generic Name Dose Route Start Last Admin Trade Name Wallace PRN Reason Stop Dose Admin Acetaminophen 650 mg 06/07/20 21:29 Acetaminophen 325 Mg Tablet PO Q6H PRN Pain, Mild (Pain Scale 1-3) Albuterol Sulfate 2 puff 06/08/20 05:41 Albuterol Sulfate 90 Mcg 8 Gm Inhaler INHALE Q6H PRN Shortness Of Breath Docusate Sodium 100 mg 06/07/20 21:29 Docusate Sodium 100 Mg Capsule PO DAILY PRN Constipation Dextrose/Lactated Ringer's 1,000 mls @ 125 mls/hr 06/07/20 21:30 06/08/20 09:33 D5lr IVCONT 125 mls/hr .Q8H LUIS ALFREDO Administration Levofloxacin 500 mg in 100 mls @ 100 mls/hr 06/07/20 22:00 06/08/20 00:58 Levaquin IV Infused Q24H LUIS ALFREDO Infusion Metronidazole 500 mg in 100 mls @ 100 mls/hr 06/07/20 22:00 06/08/20 07:10 Flagyl IV Infused Q8H LUIS ALFREDO Infusion Morphine Sulfate 4 mg 06/08/20 07:31 Morphine Sulfate 4 Mg/Ml Cartridge IVPUSH Q3H PRN Pain, Severe (Pain Scale 7-10) Ondansetron HCl 4 mg 06/07/20 21:29 06/08/20 01:06 Ondansetron Hcl 4 Mg/2 Ml Vial IVPUSH 4 mg Q8H PRN Administration Nausea and Vomiting Oxycodone HCl 5 mg 06/07/20 21:35 Oxycodone Hcl Immed Release 5 Mg Tablet PO Q6H PRN Pain, Moderate (Pain Scale 4-6 Pharmacy Consult 1 each 06/07/20 21:29 Consult Rx Perform Med Rec MISCELLANE ONCE PRN Consult order Sodium Chloride 3 ml 06/08/20 00:00 06/08/20 09:36 0.9 % Sodium Chloride Flush 3 Ml Syringe IVFLUSH 3 ml QSHIFT LUIS ALFREDO Administration Zolpidem Tartrate 5 mg 06/07/20 21:29 Zolpidem Tartrate 5 Mg Tablet PO BEDTIME PRN Insomnia Home Medications Medication Instructions Recorded Confirmed Last Taken Type loratadine 10 mg tablet 10 mg PO DAILY 02/09/20 06/07/20 Unknown History albuterol sulfate 90 mcg/actuation 1 - 2 puff INHALATION Q6H PRN 04/05/20 06/07/20 Unknown History aerosol inhaler Exam Exam Date and Time: June 08, 2020 1019 Height,Weight and Vital Signs: Height 5 ft 1 in Weight 100.4 kg Last Vital Signs Temp 98.0 F 06/08/20 07:48 Pulse 76 06/08/20 07:48 Resp 18 06/08/20 07:48 BP 132/65 06/08/20 07:48 Pulse Ox 97 06/08/20 07:48 Pertinent Lab Results Pertinent Lab Results: Laboratory Tests 06/07/20 06/07/20 06/07/20 17:08 17:08 17:08 WBC 8.6 RBC 5.04 Hgb 14.1 Hct 42.0 MCV 83.3 MCH 28.0 MCHC 33.6 RDW 12.5 Plt Count 244 MPV 11.4 Immature Gran % (Auto) 0.2 Neut % (Auto) 78.7 H Lymph % (Auto) 12.2 L [place] % (Auto) 7.6 Eos % (Auto) 1.2 Baso % (Auto) 0.1 Lymph # (Auto) 1.1 L [place] # (Auto) 0.7 Eos # (Auto) 0.1 Baso # (Auto) 0.0 Abs Immat Gran (auto) 0.02 Absolute Neuts (auto) 6.8 Absolute Nucleated RBC 0.000 Nucleated RBC % (auto) 0.0 Hold Blue Top SEE NOTE Sodium Potassium Chloride Carbon Dioxide Anion Gap BUN Creatinine Estim Creat Clear Calc Estimated GFR Random Glucose Calcium Total Bilirubin Direct Bilirubin AST ALT Alkaline Phosphatase Total Protein Albumin Lipase Urine Color YELLOW Urine Appearance CLEAR Urine pH 6.5 Ur Specific [place] 1.015 Urine Protein NEG Urine Glucose (UA) NEG Urine Ketones NEG Urine Blood NEG Urine Nitrite NEG Ur Leukocyte Esterase NEG COVID-19 ([facility]) COVID-19 Clin Com 06/07/20 06/07/20 06/08/20 17:08 21:48 07:47 WBC RBC Hgb Hct MCV MCH MCHC RDW Plt Count MPV Immature Gran % (Auto) Neut % (Auto) Lymph % (Auto) [place] % (Auto) Eos % (Auto) Baso % (Auto) Lymph # (Auto) [place] # (Auto) Eos # (Auto) Baso # (Auto) Abs Immat Gran (auto) Absolute Neuts (auto) Absolute Nucleated RBC Nucleated RBC % (auto) Hold Blue Top Sodium 141 Potassium 3.8 Chloride 103 Carbon Dioxide 28 Anion Gap 14 BUN 8 L Creatinine 0.79 Estim Creat Clear Calc 98.6 Estimated GFR > 60 Random Glucose 95 Calcium 9.0 Total Bilirubin 3.7 H 4.7 H Direct Bilirubin 3.4 H AST 406 H 251 H ALT 433 H 364 H Alkaline Phosphatase 171 H D 166 H Total Protein 7.9 6.5 Albumin 4.3 3.6 Lipase 32 Urine Color Urine Appearance Urine pH Ur Specific [place] Urine Protein Urine Glucose (UA) Urine Ketones Urine Blood Urine Nitrite Ur Leukocyte Esterase COVID-19 ([facility]VER) Negative COVID-19 Clin Com See Note Documented by User: Nataliia Hodge 06/09/20 12:04 [facility] Past Medical History Medical History Allergic rhinitis Annual physical exam Chondromalacia patellae of right knee Chondromalacia, patella GERD without esophagitis Obesity (BMI 30-39.9) Pure hypercholesterolemia Vitamin D deficiency Family History Family History Father Esophageal cancer Mother Diabetes Surgical History Surgical History History of tubal ligation Previous section Social History Social History Household Members: Spouse Housing: House Do you presently have visiting nurse or other home services: No Alcohol intake: current Alcohol intake frequency: holidays/special occasions only Smoking Status: Never smoker Use of substances other than those prescribed or required for medical reasons: No Currently Displaying Signs/Symptoms of Drug Intoxication Withdrawal: No Have you been hit, kicked, punched, or otherwise hurt by someone within the past year? If so, by whom?: No Do you feel safe in your current relationship?: Yes Is there a partner from a previous relationship who is making you feel unsafe now?: No Are you made to feel afraid or neglected: No Advance Directives: No Advance Directives Information Provided: Yes Do you have thoughts of harming others: None Do you have a plan to hurt others: No Plan Recently lost weight without trying: No service: No Current occupational status: employed Meds Allergies Allergy/AdvReac Type Severity Reaction Status Date / Time Penicillins [PENICILLINS] Allergy Unknown HIVES Verified 06/07/20 16:46 Home Medications Medication Instructions Recorded Confirmed Last Taken Type loratadine 10 mg tablet 10 mg PO DAILY 02/09/20 06/07/20 Unknown History albuterol sulfate 90 mcg/actuation 1 - 2 puff INHALATION Q6H PRN 04/05/20 06/07/20 Unknown History aerosol inhaler Exam Airway Mallampati Class: II TM Dist: >3cm Neck ROM: Full Heart: RRR Lungs: CTa BL Assessment and Plan Assessment Anesthesia Assessment: Anesthesia Plan Discussed and Chart Reviewed Final Anesthetic Review NPO: Yes ASA Class: II Final Preanesthetic Review: No Changes in Pt Med Stat and Consent Obtained/Reviewed Patient Risk: Intermediate Procedure Risk: Intermediate Anesthetic Plan Anesthetic Plan: GA Disposition: Standard PACU
--- NOTE | 2020-06-08 10:29 | PM.GICN ---
History of Present Illness Data of Consult Service Date: 06/08/20 Requesting physician: Dayton Steel Primary Care Provider: Adrian Simons MD HPI Reason for consult: gallstones, and abn LFT 44 year old female presenting with hx of GERD, HLP who I am seeing for assessment for abn LFT and gallstones. She recalls intense pain 10/10 in epigastric and RUQ areas, colicky in nature, seemed to have came on after eating vietnamese food. It was associated with nausea and vomiting, non bloody, no coffee ground seen. Denies diarrhea, no constipation or rectal bleeding, no jaundice or drk urine, light stools. Work up thus far has revealed elevated LFTs and a normal WBC. US of the abdomen with gallstones in the gallbladder and a mildly dilated CBD. No Wall thickening or pericholecystic fluid. No CBD stones are noted. Her LFT are overall trending downwards but MRCP ordered due to higher bili, and this did not reveal any cbd stone but more suggestive of cholecystitis. Review of Systems Review of Systems: Yes all other systems are reviewed and are negative Constitutional: Constitutional: Denies chills, Denies fever(s), Denies headache(s) and Denies poor appetite ENT: Denies dizziness and Denies headache(s) Cardiovascular: Cardiovascular: Denies chest pain, Denies rapid heart rate, Denies palpitations and Denies slow heart rate Respiratory: Respiratory: Denies chest congestion, Denies cough, Denies pain on inspiration and Denies wheezing Gastrointestinal: Gastrointestinal: Reports abdominal pain, Denies bloating, Denies change in stool character, Denies constipation, Denies diarrhea, Reports nausea, Reports vomiting and Denies hematemesis Musculoskeletal: Musculoskeletal: Denies back pain, Denies arthralgias, Denies joint swelling and Denies numbness Integumentary/Breasts: Skin/Breast: Denies change in pigmentation, Denies erythema and Denies rash Neurologic: Denies dizziness, Denies headache(s) and Denies numbness Psychiatric: Psychiatric: Denies anxiety and Denies depression Endocrine: Endocrine: Denies palpitations Hematologic/Lymphatic: Hematologic/Lymphatic: Denies easy bleeding, Denies easy bruising and Denies lymphadenopathy Allergic/Immunologic: Allergic/Immunologic: Denies wheezing PMFSH Past Medical History Medical History Allergic rhinitis Annual physical exam Chondromalacia patellae of right knee Chondromalacia, patella GERD without esophagitis Obesity (BMI 30-39.9) Pure hypercholesterolemia Vitamin D deficiency Family History Family History Father Esophageal cancer Mother Diabetes Surgical History Surgical History History of tubal ligation Previous section Social History Social History Household Members: Spouse Housing: House Do you presently have visiting nurse or other home services: No Alcohol intake: current Alcohol intake frequency: holidays/special occasions only Smoking Status: Never smoker Use of substances other than those prescribed or required for medical reasons: No Currently Displaying Signs/Symptoms of Drug Intoxication Withdrawal: No Have you been hit, kicked, punched, or otherwise hurt by someone within the past year? If so, by whom?: No Do you feel safe in your current relationship?: Yes Is there a partner from a previous relationship who is making you feel unsafe now?: No Are you made to feel afraid or neglected: No Advance Directives: No Advance Directives Information Provided: Yes Do you have thoughts of harming others: None Do you have a plan to hurt others: No Plan Recently lost weight without trying: No service: No Current occupational status: employed Meds Allergies Allergy/AdvReac Type Severity Reaction Status Date / Time Penicillins [PENICILLINS] Allergy Unknown HIVES Verified 06/07/20 16:46 Active Medications: Current Medications Generic Name Dose Route Start Last Admin Trade Name Freq PRN Reason Stop Dose Admin Acetaminophen 650 mg 06/07/20 21:29 Acetaminophen 325 Mg Tablet PO Q6H PRN Pain, Mild (Pain Scale 1-3) Albuterol Sulfate 2 puff 06/08/20 05:41 Albuterol Sulfate 90 Mcg 8 Gm Inhaler INHALE Q6H PRN Shortness Of Breath Docusate Sodium 100 mg 06/07/20 21:29 Docusate Sodium 100 Mg Capsule PO DAILY PRN Constipation Dextrose/Lactated Ringer's 1,000 mls @ 125 mls/hr 06/07/20 21:30 06/08/20 09:33 D5lr IVCONT 125 mls/hr .Q8H LUIS ALFREDO Administration Levofloxacin 500 mg in 100 mls @ 100 mls/hr 06/07/20 22:00 06/08/20 00:58 Levaquin IV Infused Q24H LUIS ALFREDO Infusion Metronidazole 500 mg in 100 mls @ 100 mls/hr 06/07/20 22:00 06/08/20 07:10 Flagyl IV Infused Q8H LUIS ALFREDO Infusion Morphine Sulfate 4 mg 06/08/20 07:31 Morphine Sulfate 4 Mg/Ml Cartridge IVPUSH Q3H PRN Pain, Severe (Pain Scale 7-10) Ondansetron HCl 4 mg 06/07/20 21:29 06/08/20 01:06 Ondansetron Hcl 4 Mg/2 Ml Vial IVPUSH 4 mg Q8H PRN Administration Nausea and Vomiting Oxycodone HCl 5 mg 06/07/20 21:35 Oxycodone Hcl Immed Release 5 Mg Tablet PO Q6H PRN Pain, Moderate (Pain Scale 4-6 Pharmacy Consult 1 each 06/07/20 21:29 Consult Rx Perform Med Rec MISCELLANE ONCE PRN Consult order Sodium Chloride 3 ml 06/08/20 00:00 06/08/20 09:36 0.9 % Sodium Chloride Flush 3 Ml Syringe IVFLUSH 3 ml QSHIFT LUIS ALFREDO Administration Zolpidem Tartrate 5 mg 06/07/20 21:29 Zolpidem Tartrate 5 Mg Tablet PO BEDTIME PRN Insomnia Home Medications Medication Instructions Recorded Confirmed Last Taken Type loratadine 10 mg tablet 10 mg PO DAILY 02/09/20 06/07/20 Unknown History albuterol sulfate 90 mcg/actuation 1 - 2 puff INHALATION Q6H PRN 04/05/20 06/07/20 Unknown History aerosol inhaler Physical Exam Vital Signs: Vital Signs: Last Vital Signs Temp 98.0 F 06/08/20 07:48 Pulse 76 06/08/20 07:48 Resp 18 06/08/20 07:48 BP 132/65 06/08/20 07:48 Pulse Ox 97 06/08/20 07:48 Body Mass Index 41.8 Const: General: cooperative, healthy appearing, comfortable, no acute distress, well developed, alert and awake Orientation/consciousness: patient oriented x3 Eyes: General: appearance normal, both eyes and all related structures Sclerae: sclerae normal EOM: EOMs intact bilaterally Neck: Neck: Yes normal visual inspection, Yes full ROM and Yes supple Resp: Effort & Inspection: normal respiratory effort, no cough, not labored, no stridor and not tachypneic Cardio: Jugular venous distension: no JVD Rate: regular rate Rhythm: regular rhythm GI: Inspection: Yes normal to inspection Palpation (GI): Soft to palpation, nontender (negative Munoz's sign), no guarding, not rigid and No Rebound tenderness present Percussion: Yes normal to percussion Auscultation: normal bowel sounds Rectal Exam - Female: deferred Skin: General skin exam: no rashes or lesions noted and no jaundice Wounds: no wounds Neuro: General: patient oriented x3 Extrem: General: Yes full ROM Results Labs CBC & Chem 7: 06/07/20 17:08 06/07/20 17:08 Labs: Short CBC 06/07/20 Range/Units 17:08 WBC 8.6 (4.8-10.8) X10*3/uL Hgb 14.1 (12.0-16.0) g/dl Hct 42.0 (37-47) % Plt Count 244 (160-400) X10*3/uL BMP 06/07/20 17:08 Sodium 141 Potassium 3.8 Chloride 103 Carbon Dioxide 28 BUN 8 L Creatinine 0.79 Calcium 9.0 Liver Function 06/07/20 06/08/20 Range/Units 17:08 07:47 Total Bilirubin 3.7 H 4.7 H (0.0-1.0) mg/dL Direct Bilirubin 3.4 H (0.0-0.5) mg/dL AST 406 H 251 H (5-31) U/L ALT 433 H 364 H (0-31) U/L Alkaline Phosphatase 171 H D 166 H (39-117) U/L Albumin 4.3 3.6 (3.5-5.0) g/dL Urine 06/07/20 Range/Units 17:08 Urine Color YELLOW Urine Appearance CLEAR Urine pH 6.5 (5.0-8.0) Ur Specific [place] 1.015 (1.005-1.025) Urine Protein NEG (NEG-TRACE) MG/DL Urine Glucose (UA) NEG (NEG) MG/DL Imaging Abdominal ultrasound: Attestation: I personally reviewed and interpreted this imaging study as follows: (MRI with narrow CBD, no filling defect seen, GB with stone noted) Assessment and Plan (1) Acute cholecystitis due to biliary calculus: Status: Acute 1/ acute cholecystitis, no evidence of filling defect on MRCP PLAN: 1/ recommend cont with surgery as initially planned, can consider IOC if ongoing diagnostic doubt 2/IF LFT worsen post op then can reconsider on ERCP depending on clinical picture Procedures Date of Service Date of Service: 06/08/20
[2020-06-08 11:26] VITALS: BMI 41.8
[2020-06-08] MEDS: oxyCODONE HCl Immed Release 5 MG TABLET PO ×2 (14:44→21:32)
[2020-06-08 15:22] VITALS: BP 142/82; PULSE 77; RESP 18; TEMP 37.6; O2SAT 99
[2020-06-08] MEDS: levoFLOXacin/D5W 500 MG/100 ML PIGGYBACK 100 MG IV (21:33)
[2020-06-08 23:20] VITALS: BP 145/81; PULSE 91; RESP 18; TEMP 37.4; O2SAT 98
[2020-06-09] VITALS (13 sets, daily range): BP systolic 121–164; BP diastolic 60–89; PULSE 67–87; RESP 14–20; TEMP 36.2–36.7; O2SAT 92–100
[2020-06-09] MEDS: metroNIDAZOLE/NS 500 MG/100 ML PIGGYBACK 100 MG IV (05:20)
[2020-06-09 06:38] LABS: Alanine Aminotransferase 260 U/L (0-31); Albumin Level 3.4 g/dL (3.5-5.0); Alkaline Phosphatase 143 U/L (39-117); Aspartate Amino Transferase 115 U/L (5-31); Bilirubin Direct 1.2 mg/dL (0.0-0.5); Bilirubin Total 1.9 mg/dL (0.0-1.0); Total Protein 6.1 g/dL (6.5-8.0)
--- NOTE | 2020-06-09 07:35 | PM.PNGS ---
Subjective Subjective Date of Service: 06/09/20 Interval history: Patient is hungry, denies abdominal pain currently. Denies any new symptoms. Physical Exam Vital Signs: Vital Signs: Last Vital Signs Temp 99.4 F 06/08/20 23:20 Pulse 91 06/08/20 23:20 Resp 18 06/08/20 23:20 BP 145/81 H 06/08/20 23:20 Pulse Ox 98 06/08/20 23:20 Body Mass Index 41.8 Const: General: cooperative, healthy appearing and comfortable Eyes: Sclerae: sclerae normal (Nonicteric) EOM: EOMs intact bilaterally Resp: Effort & Inspection: normal respiratory effort, no stridor and not tachypneic GI: Inspection: Yes normal to inspection Palpation (GI): Soft to palpation, nontender and no guarding Auscultation: normal bowel sounds Skin: Other: Normal color, no rash Extrem: General: Yes no clubbing, cyanosis or edema Progress Note: A&P Assessment and plan (1) Acute cholecystitis due to biliary calculus: Status: Acute (2) Elevated liver transaminase level: Status: Acute Assessment and Plan: Today's laboratories are improved with improvement of the bilirubins as well. Overall the patient is asymptomatic and hungry. I review the MRI findings with the patient. Although the study is limited due to motion artifact a normal size common bile duct is noted and no stones are noted within the common bile duct. 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 I recommended proceeding to a laparoscopic or possible open cholecystectomy today. I again reviewed the procedure, risks, and alternatives, and she consents to the laparoscopic or possible open cholecystectomy. She has been added onto the operative schedule. Fall Risk Details Current Medications: Current Medications Generic Name Dose Route Start Last Admin Trade Name Freq PRN Reason Stop Dose Admin Acetaminophen 650 mg 06/07/20 21:29 Acetaminophen 325 Mg Tablet PO Q6H PRN Pain, Mild (Pain Scale 1-3) Albuterol Sulfate 2 puff 06/08/20 05:41 Albuterol Sulfate 90 Mcg 8 Gm Inhaler INHALE Q6H PRN Shortness Of Breath Docusate Sodium 100 mg 06/07/20 21:29 Docusate Sodium 100 Mg Capsule PO DAILY PRN Constipation Dextrose/Lactated Ringer's 1,000 mls @ 125 mls/hr 06/07/20 21:30 06/09/20 06:23 D5lr IVCONT 125 mls/hr .Q8H LUIS ALFREDO Infusion Levofloxacin 500 mg in 100 mls @ 100 mls/hr 06/07/20 22:00 06/08/20 22:45 Levaquin IV Infused Q24H LUIS ALFREDO Infusion Metronidazole 500 mg in 100 mls @ 100 mls/hr 06/07/20 22:00 06/09/20 06:22 Flagyl IV Infused Q8H LUIS ALFREDO Infusion Cefotetan Disodium 2 gm in 50 mls @ 100 mls/hr 06/09/20 07:11 Cefotan IV 06/09/20 07:40 PREOP ONE Morphine Sulfate 4 mg 06/08/20 07:31 Morphine Sulfate 4 Mg/Ml Cartridge IVPUSH Q3H PRN Pain, Severe (Pain Scale 7-10) Ondansetron HCl 4 mg 06/07/20 21:29 06/08/20 01:06 Ondansetron Hcl 4 Mg/2 Ml Vial IVPUSH 4 mg Q8H PRN Administration Nausea and Vomiting Oxycodone HCl 5 mg 06/07/20 21:35 06/08/20 21:32 Oxycodone Hcl Immed Release 5 Mg Tablet PO 5 mg Q6H PRN Administration Pain, Moderate (Pain Scale 4-6 Pharmacy Consult 1 each 06/07/20 21:29 Consult Rx Perform Med Rec MISCELLANE ONCE PRN Consult order Sodium Chloride 3 ml 06/08/20 00:00 06/08/20 23:41 0.9 % Sodium Chloride Flush 3 Ml Syringe IVFLUSH 3 ml QSHIFT LUIS ALFREDO Administration Zolpidem Tartrate 5 mg 06/07/20 21:29 Zolpidem Tartrate 5 Mg Tablet PO BEDTIME PRN Insomnia Time Spent With Patient Time: Total time spent is greater than 50% in coordination of care (as documented) at patient's floor/unit and/or counseling patient: Time with patient: 15 - 24 minutes Procedures Date of Service Date of Service: 06/09/20
[2020-06-09] MEDS: oxyCODONE HCl Immed Release 5 MG TABLET PO ×3 (08:12→23:30)
--- NOTE | 2020-06-09 11:54 | MHC.CM.PN ---
EMR REVIEWED [facility] WAS NOT PERFORMED ON 06/08 DUE TO ELEVATED LABS, PER SURGICAL PROCEDURE WILL BE DONE TODAY, NO DISCHARGE PLANNED FOR TODAY. DISCHARGE PLAN: HOME W/NO SERVICES, FAMILY TO TRANSPORT.
[2020-06-09] MEDS: Lactated Ringers 1,000 ML 50 ML IV (12:07)
--- NOTE | 2020-06-09 13:39 | P.OP_ITS ---
Operative Note Operative Note Date of Service: 06/09/20 Narrative: Preoperative diagnosis: Acute cholecystitis, cholelithiasis, choledocholithiasis Postoperative diagnosis: Same Procedure: Laparoscopic cholecystectomy Surgeon: Dayton Steel MD Mobile Device Developer: AURA Dubois Anesthesia: General endotracheal Indications for procedure: 44-year-old female presenting with complaints of abdominal pain in the epigastrium and right upper quadrant found to have tenderness in the epigastrium and right upper quadrant. Patient found to have elevated liver function tests as well. Ultrasound revealed multiple gallstones within the gallbladder but no common bile duct dilatation. An abdominal MRI revealed a normal appearing common bile duct with no stones within the common bile duct. Patient presents now for laparoscopic cholecystectomy. Operative findings: Acutely inflamed gallbladder with dense adhesions to the anterior surface. Mildly enlarged cystic duct. Specimen: Gallbladder Estimated blood loss: 5 mL Complications: None Procedure details: Patient was brought to the OR and placed in a supine position. After administering general anesthesia the patient's abdomen was prepped with ChloraPrep and draped in a sterile fashion. Local anesthesia consisting of 0.5% Sensorcaine with epinephrine was infiltrated in a periumbilical region. A 5 mm incision was made above the umbilicus in a transverse fashion. The Veress needle was then inserted while elevating abdominal cavity with towel clips. After positive drop test the abdomen was insufflated to a pressure of 15 mm of mercury. The Veress needle was then removed and a 5 mm trocar inserted. The camera was inserted in the abdomen explored. A 12 mm trocar was then placed in the epigastrium and two 5 mm trocars placed in the right upper quadrant. The patient was placed in reverse Trendelenburg positioning and rotated to the left. The gallbladder was grasped with the fundus and retracted cephalad.. The infundibulum Was then grasped and retracted away from the liver bed. The Dolphin dissector was then used to dissect the peritoneum off the infundibulum to reveal the junction with the cystic duct. Cystic artery was noted slightly medial and posterior to the cystic duct. After obtaining a critical view the cystic duct was doubly clipped and divided. The cystic artery was then doubly clipped and divided. The gallbladder was then dissected off the liver bed using electrocautery with an L hook. Hemostasis was assured all times using the electrocautery. When the gallbladder is completely dissected off the liver bed was placed in an Endo- Catch bag and brought out through the epigastric incision. The gallbladder was sent to pathology for further examination. The abdomen was then re-examined. The liver bed was irrigated and suctioned dry. No bleeding or bile leak could be identified. CO2 was then evacuated and all trocars removed. Fascia was closed at the epigastric incision using a [id number] 0 Polysorb suture. Skin was closed in all incisions using a s ubcuticular 4 0 Polysorb suture. Sterile dressings consisting of Steri-Strips, 2 x 2 gauze, and Tegaderm were then applied. The patient tolerated the procedure well. Sponge instrument and needle counts reported as correct. The patient was transferred to PACU in stable condition.
--- NOTE | 2020-06-09 13:41 | PM.OP ---
Brief Operative Note Date of Service: 06/09/20 <CASIE Dubois Last Filed: 06/09/20 13:41> Pre-op diagnosis: acute cholecystitis, cholelithiasis <CASIE Dubois Last Filed: 06/09/20 13:41> Post-op diagnosis: same <CASIE Dubois Last Filed: 06/09/20 13:41> Procedure: laparoscopic cholecystectomy <CASIE Dubois Last Filed: 06/09/20 13:41> Implants: None <CASIE Dubois Last Filed: 06/09/20 13:41> Surgeon: GAURANG HARGROVE MD <CASIE Dubois Last Filed: 06/09/20 13:41> Anesthesia: GETA <CASIE Dubois Last Filed: 06/09/20 13:41> Recruiting Team Lead: Nereyda Waters <CASIE Dubois Last Filed: 06/09/20 13:41> Estimated blood loss (mL): 5 <CASIE Dubois Last Filed: 06/09/20 13:41> Pathology: other (gallbladder) <CASIE Dubois Last Filed: 06/09/20 13:41> Condition: stable <CASIE Dubois Last Filed: 06/09/20 13:41> Disposition: PACU <CASIE Dubois Last Filed: 06/09/20 13:41>
[2020-06-09] MEDS: Morphine Sulfate 2 MG/ML CARTRIDGE IVPUSH (13:59)
[2020-06-09] MEDS: Dextrose 5 % and Lactated Ring 1,000 ML 125 ML IVCONT ×2 (14:44→21:35)
--- NOTE | 2020-06-09 14:48 | PC.NURSE ---
PT RETURNED FROM OR VIA STRETCHER. DROWSY BUT AROUSABLE. 4 GAUZE WITH TEGADERM DRESSINGS TO ABDOMEN, CDI. O2 3L NC SATS 92%. IVF INFUSING PER ORDER.VSS
[2020-06-09] MEDS: Docusate Sodium 100 MG CAPSULE PO (16:25)
[2020-06-09] MEDS: Morphine Sulfate 4 MG/ML CARTRIDGE IVPUSH ×2 (18:22→21:34)
[2020-06-10] MEDS: Morphine Sulfate 4 MG/ML CARTRIDGE IVPUSH ×3 (01:02→07:56)
[2020-06-10] MEDS: Dextrose 5 % and Lactated Ring 1,000 ML 125 ML IVCONT (05:29)
[2020-06-10] MEDS: oxyCODONE HCl Immed Release 5 MG TABLET PO (05:29)
[2020-06-10 07:27] VITALS: BP 165/79; PULSE 85; RESP 19; TEMP 37.3; O2SAT 97
[2020-06-10] MEDS: Ketorolac Tromethamine 15 MG/ML VIAL IV ×3 (07:55→19:59)
[2020-06-10 07:56] VITALS: RESP 18
[2020-06-10] MEDS: 0.9 % Sodium Chloride Flush 3 ML SYRINGE IVFLUSH ×3 (07:56→20:02)
--- NOTE | 2020-06-10 08:30 | P.PNGS_ITS ---
Subjective Subjective Date of Service: 06/10/20 <Nereyda Waters PA-C - Last Filed: 06/10/20 08:35> 06/10/20 <Dayton Steel MD - Last Filed: 06/10/20 14:25> Interval history: Complains of pain at epigastric port site that extends to RUQ. Having difficulty taking deep breaths due to pain. Reports little appetite but tolerating diet. Denies nausea, vomiting. <Nereyda Waters PA-C - Last Filed: 06/10/20 08:35> Physical Exam Vital Signs: Vital Signs: Last Vital Signs Temp 99.1 F 06/10/20 07:27 Pulse 85 06/10/20 07:27 Resp 18 06/10/20 07:56 BP 165/79 H 06/10/20 07:27 Pulse Ox 97 06/10/20 07:27 Body Mass Index 41.8 <Nereyda Waters PA-C - Last Filed: 06/10/20 08:35> Const: General: healthy appearing, no acute distress and alert <Nereyda Waters PA-C - Last Filed: 06/10/20 08:35> Orientation/consciousness: patient oriented x3 <Nereyda Waters PA-C - Last Filed: 06/10/20 08:35> Eyes: Sclerae: sclerae normal <Nereyda Waters PA-C - Last Filed: 06/10/20 08:35> Resp: Effort & Inspection: normal respiratory effort <Nereyda Waters PA-C - Last Filed: 06/10/20 08:35> Cardio: Rate: regular rate <Nereyda Waters PA-C - Last Filed: 06/10/20 08:35> GI: Inspection: Yes incision (dressings c/d/i) <CASIE Dubois Last Filed: 06/10/20 08:35> Palpation (GI): Soft to palpation, Tenderness to palpation present (GI) (i ncisional, RUQ moderate), not rigid and No Rebound tenderness present <CASIE Dubois Last Filed: 06/10/20 08:35> Percussion: Yes normal to percussion <Nereyda Waters PA-C - Last Filed: 06/10/20 08:35> Skin: Other: normal color <Nereyda Waters PA-C - Last Filed: 06/10/20 08:35> General skin exam: no rashes or lesions noted <Nereyda Waters PA-C - Last Filed: 06/10/20 08:35> Neuro: General: patient oriented x3 <Nereyda Waters PA-C - Last Filed: 06/10/20 08:35> Extrem: General: Yes no clubbing, cyanosis or edema <Nereyda Waters PA-C - Last Filed: 06/10/20 08:35> Progress Note: A&P Assessment and plan (1) Elevated liver transaminase level: Status: Acute <Nereyda Waters PA-C - Last Filed: 06/10/20 08:35> (2) Acute cholecystitis due to biliary calculus: Status: Acute <CASIE Dubois Last Filed: 06/10/20 08:35> (3) S/P laparoscopic cholecystectomy: Problem details: POD #1 <Nereyda Waters PA-C - Last Filed: 06/10/20 08:35> Status: Acute <Nereyda Waters PA-C - Last Filed: 06/10/20 08:35> Assessment and Plan: Clinically appearing well but c/o severe pain at incisions/RUQ. VSS. Abd exam benign with appropriate post op tenderness, dressings c/d/i. Will adjust analgesics- add ofirmev, ketorolac. Encouraged OOB/ambulation of halls and IS use. Diet as tolerated, dec IVF. Home likely tomorrow if pain better controlled. <Nereyda Waters PA-C - Last Filed: 06/10/20 08:35> As noted above the patient reporting epigastric abdominal pain with shortness of breath requiring 3 L nasal O2. Oxygen saturations are now 96%. Will add Ofirmev and Toradol to regimen and check back later today. Encourage patient to get out of bed and ambulate. Agree with the above assessment and plan. <Dayton Steel MD - Last Filed: 06/10/20 14:25> Fall Risk Details Current Medications: Current Medications Generic Name Dose Route Start Last Admin Trade Name Freq PRN Reason Stop Dose Admin Albuterol Sulfate 2 puff 06/08/20 05:41 Albuterol Sulfate 90 Mcg 8 Gm Inhaler INHALE Q6H PRN Shortness Of Breath Docusate Sodium 100 mg 06/07/20 21:29 06/09/20 16:25 Docusate Sodium 100 Mg Capsule PO 100 mg DAILY PRN Administration Constipation Dextrose/Lactated Ringer's 1,000 mls @ 125 mls/hr 06/07/20 21:30 06/10/20 05:29 D5lr IVCONT 125 mls/hr .Q8H LUIS ALFREDO Administration Acetaminophen 1,000 mg in 100 mls @ 400 mls/hr 06/10/20 08:00 06/10/20 07:55 Ofirmev IV 06/11/20 02:14 400 mls/hr Q6H LUIS ALFREDO Administration Ketorolac Tromethamine 15 mg 06/10/20 08:00 06/10/20 07:55 Ketorolac Tromethamine 15 Mg/Ml Vial IV 15 mg Q6H LUIS ALFREDO Administration Morphine Sulfate 4 mg 06/08/20 07:31 06/10/20 07:56 Morphine Sulfate 4 Mg/Ml Cartridge IVPUSH 4 mg Q3H PRN Administration Pain, Severe (Pain Scale 7-10) Ondansetron HCl 4 mg 06/07/20 21:29 06/08/20 01:06 Ondansetron Hcl 4 Mg/2 Ml Vial IVPUSH 4 mg Q8H PRN Administration Nausea and Vomiting Oxycodone HCl 5 mg 06/07/20 21:35 06/10/20 05:29 Oxycodone Hcl Immed Release 5 Mg Tablet PO 5 mg Q6H PRN Administration Pain, Moderate (Pain Scale 4-6 Pharmacy Consult 1 each 06/07/20 21:29 Consult Rx Perform Med Rec MISCELLANE ONCE PRN Consult order Sodium Chloride 3 ml 06/08/20 00:00 06/10/20 07:56 0.9 % Sodium Chloride Flush 3 Ml Syringe IVFLUSH 3 ml QSHIFT LUIS ALFREDO Administration Zolpidem Tartrate 5 mg 06/07/20 21:29 Zolpidem Tartrate 5 Mg Tablet PO BEDTIME PRN Insomnia <Nereyda Evelin, PA-C - Last Filed: 06/10/20 08:35> Time Spent With Patient Time: Total time spent is greater than 50% in coordination of care (as documented) at patient's floor/unit and/or counseling patient: <CASIE Dubois Last Filed: 06/10/20 08:35> Time with patient: 15 - 24 minutes <CASIE Dubois Last Filed: 06/10/20 08:35> Procedures Date of Service Date of Service: 06/10/20 <Nereyda Waters PA-C - Last Filed: 06/10/20 08:35>
[2020-06-10 10:29] VITALS: BP 152/72
[2020-06-10 14:16] VITALS: BP 129/78; PULSE 72; RESP 20; TEMP 36.1; O2SAT 98
[2020-06-10 15:38] VITALS: BP 149/79; PULSE 74; RESP 20; TEMP 36.1; O2SAT 96
--- NOTE | 2020-06-10 15:46 | MHC.CM.PN ---
EMR REVIEWED, PER SURGICAL PAIN MEDS WERE CHANGED TODAY AND PT MAY D/C TOMORROW 06/11/20 IF PAIN IS CONTROLLED. D/C PLAN: HOME W/NO SERVICES, TO TRANSPORT.
--- NOTE | 2020-06-10 16:36 | HO.POSTANES ---
Post Anesthesia Evaluation Post Anesthesia Evaluation Vital Signs: Vital Signs Temp Pulse Resp BP Pulse Ox 06/10/20 15:38 97 F 74 20 149/79 H 96 06/10/20 14:16 96.9 F 72 20 129/78 98 06/10/20 10:29 152/72 H 06/10/20 07:56 18 06/10/20 07:27 99.1 F 85 19 165/79 H 97 Anesthesia: General Endotracheal-GETA Mental Status: Awake Pain Control: Satisfactory Nausea/Vomiting: None Hydration: Adequate Anesthesia-Related Issues: No Anes. Related Issues
[2020-06-10 23:39] VITALS: BP 138/67; PULSE 91; RESP 18; TEMP 36.3; O2SAT 98
[2020-06-11] MEDS: oxyCODONE HCl Immed Release 5 MG TABLET PO (01:01)
[2020-06-11] MEDS: Ketorolac Tromethamine 15 MG/ML VIAL IV ×2 (02:20→08:41)
--- NOTE | 2020-06-11 07:39 | PM.PNGS ---
Subjective Subjective Date of Service: 06/11/20 Interval history: Feels much better today. Pain at incisions only mild and she is comfortable. Tolerating solid diet. OOB and ambulating in room. Wants to go home. Physical Exam Vital Signs: Vital Signs: Last Vital Signs Temp 97.4 F 06/10/20 23:39 Pulse 91 06/10/20 23:39 Resp 18 06/10/20 23:39 BP 138/67 06/10/20 23:39 Pulse Ox 98 06/10/20 23:39 Body Mass Index 41.8 Const: General: comfortable, no acute distress and alert Orientation/consciousness: patient oriented x3 Eyes: Sclerae: sclerae normal Resp: Effort & Inspection: normal respiratory effort Cardio: Rate: regular rate GI: Inspection: Yes normal to inspection, No distended and Yes incision (clean) Palpation (GI): Soft to palpation, Tenderness to palpation present (GI) (mild, incisional), no guarding and not rigid Percussion: Yes normal to percussion Skin: General skin exam: no rashes or lesions noted Neuro: General: patient oriented x3 Extrem: General: Yes no clubbing, cyanosis or edema Progress Note: A&P Assessment and plan (1) S/P laparoscopic cholecystectomy: Problem details: POD #2 Status: Acute Assessment and Plan: Doing well post op, comfortable. VSS. ABd exam benign, appropriate post op tenderness, incisions clean. Patient feels ready for discharge. D/c to home today, f/u in office in 1 week. Patient comfortable with plan. (2) Elevated liver transaminase level: Status: Acute (3) Acute cholecystitis due to biliary calculus: Status: Acute Fall Risk Details Current Medications: Current Medications Generic Name Dose Route Start Last Admin Trade Name Freq PRN Reason Stop Dose Admin Albuterol Sulfate 2 puff 06/08/20 05:41 Albuterol Sulfate 90 Mcg 8 Gm Inhaler INHALE Q6H PRN Shortness Of Breath Docusate Sodium 100 mg 06/07/20 21:29 06/09/20 16:25 Docusate Sodium 100 Mg Capsule PO 100 mg DAILY PRN Administration Constipation Dextrose/Lactated Ringer's 1,000 mls @ 125 mls/hr 06/07/20 21:30 06/11/20 04:59 D5lr IVCONT Not Given .Q8H LUIS ALFREDO Ketorolac Tromethamine 15 mg 06/10/20 08:00 06/11/20 02:20 Ketorolac Tromethamine 15 Mg/Ml Vial IV 15 mg Q6H LUIS ALFREDO Administration Morphine Sulfate 4 mg 06/08/20 07:31 06/10/20 07:56 Morphine Sulfate 4 Mg/Ml Cartridge IVPUSH 4 mg Q3H PRN Administration Pain, Severe (Pain Scale 7-10) Ondansetron HCl 4 mg 06/07/20 21:29 06/08/20 01:06 Ondansetron Hcl 4 Mg/2 Ml Vial IVPUSH 4 mg Q8H PRN Administration Nausea and Vomiting Oxycodone HCl 5 mg 06/07/20 21:35 06/11/20 01:01 Oxycodone Hcl Immed Release 5 Mg Tablet PO 5 mg Q6H PRN Administration Pain, Moderate (Pain Scale 4-6 Oxycodone HCl 10 mg 06/10/20 08:35 Oxycodone Hcl Immed Release 5 Mg Tablet PO Q4H PRN Pain, Severe (Pain Scale 7-10) Pharmacy Consult 1 each 06/07/20 21:29 Consult Rx Perform Med Rec MISCELLANE ONCE PRN Consult order Sodium Chloride 3 ml 06/08/20 00:00 06/10/20 20:02 0.9 % Sodium Chloride Flush 3 Ml Syringe IVFLUSH 3 ml QSHIFT [facility] Administration Zolpidem Tartrate 5 mg 06/07/20 21:29 Zolpidem Tartrate 5 Mg Tablet PO BEDTIME PRN Insomnia Time Spent With Patient Time: Total time spent is greater than 50% in coordination of care (as documented) at patient's floor/unit and/or counseling patient: Time with patient: 15 - 24 minutes Procedures Date of Service Date of Service: 06/11/20
[2020-06-11 07:45] VITALS: BP 129/72; PULSE 88; RESP 16; TEMP 36.8; O2SAT 94
[2020-06-11] MEDS: 0.9 % Sodium Chloride Flush 3 ML SYRINGE IVFLUSH (08:42)
--- NOTE | 2020-06-11 08:57 | MHC.CM.PN ---
NURSE CARE MANGER NOTE ELECTRONIC MEDICAL RECORD REVIEWED ALONG WITH CASE DISCUSED WITH STAFF NURSE , MET WITH PATIENT , SHE IS ANTICIPATING TO BE DISCHARGED LATER TODAY HOME NO SERVICES
--- NOTE | 2020-06-11 10:32 | PM.DS ---
DS: Providers Provider Date of Service: 06/11/20 Date of admission: 06/07/20 21:29 Primary care physician: Adrian Simons MD Consults: 06/08/20 10:27 Consult to Gastroenterology Routine Consulting Provider: Thelma Bobby Reason for consultation: Possible CBD stone DS: Diagnosis Discharge Diagnosis (1) S/P laparoscopic cholecystectomy: Status: Acute Problem details: POD #2 (2) Elevated liver transaminase level: Status: Acute (3) Acute cholecystitis due to biliary calculus: Status: Acute DS: Medications Discharge Medications Home Medications: Home Medications Medication Instructions Recorded Confirmed loratadine 10 mg tablet 10 mg PO DAILY 02/09/20 06/07/20 albuterol sulfate 90 mcg/actuation 1 - 2 puff INHALATION Q6H PRN 04/05/20 06/07/20 aerosol inhaler Previous Rx's Medication Instructions Recorded omeprazole magnesium 20 mg 20 mg PO DAILY PRN 90 Days #90 tab 04/05/20 tablet,delayed release famotidine 20 mg tablet 20 mg PO BEDTIME #30 tab 05/26/20 oxycodone 5 mg PO Q4H PRN #24 tab 06/11/20 DS: Summary Hospital Course Hospital Course: BRIEF HPI: Jose Keen is a 44 year old female presenting with complaints of epigastric abdominal pain 10 out of 10 in severity starting after eating [place] food for dinner. She reports similar pain for the last two months, this being the worst episode. She denies fever, chills, or other bowel changes but does report nausea and vomiting. Work up in the ED revealed elevated LFTs and a normal WBC. US of the abdomen reveals gallstones in the gallbladder and a mildly dilated CBD. No Wall thickening or pericholecystic fluid. No CBD stones are noted. This morning, she reports feeling much improved with no further abdominal pain, nausea or vomiting. HOSPITAL COURSE: She was admitted to the surgical service for further treatment of the acute cholecystitis. She was kept NPO, on IVF and IV analgesics for pain control. She did have elevated transaminases and a total bilirubin of 3.7 upon presentation which trended up to 4.7. A GI consult was therefore obtained who recommended further evaluation with MRCP. The MRI showed no intrahepatic or extrahepatic biliary duct dilatation or common bile duct stone seen. Her LFTs began to downtrend and improved significantly the following day and were thought the elevation was secondary to a passed stone or Mirizzi syndrome. It was therefore recommended to proceed with a laparoscopic cholecystectomy possible open. The patient elected to proceed and she was added onto the OR schedule for that day. On 06/09/20, a laparoscopic cholecystectomy was performed by Dr. Dayton Steel without complication. The patient tolerated the procedure well and was admitted to the medical/surgical floor for observation. She had an uncomplicated recovery course but remained inpatient for 2 days for post operative pain control. On the day of discharge, the patient was comfortable on PO analgesics, tolerating a solid diet and OOB without difficulty. Her abdomen was benign with appropriate post op tenderness and incisions were clean. She was discharged to home on 06/11/20 in stable condition. She is to f/u in office with Dr. Steel in 1 week. Status at Discharge Functional status at discharge: independent ambulation Overall status at discharge: patient is progressing back to baseline Time Spent with Patient Time attestation: Total time spent providing and/or coordinating discharge services: Discharge coordination time: Less than 30 minutes Physical Exam Vital Signs: Vital Signs: Last Vital Signs Temp 98.2 F 06/11/20 07:45 Pulse 88 06/11/20 07:45 Resp 16 06/11/20 07:45 BP 129/72 06/11/20 07:45 Pulse Ox 94 06/11/20 07:45 Body Mass Index 41.8 Const: General: no acute distress, well developed and alert Orientation/consciousness: patient oriented x3 Eyes: Sclerae: sclerae normal Resp: Effort & Inspection: normal respiratory effort Cardio: Rate: regular rate GI: Inspection: No distended and Yes incision (clean) Palpation (GI): Soft to palpation, Tenderness to palpation present (GI) (mild, incisional), no guarding and not rigid Percussion: Yes normal to percussion Skin: Other: normal color, warm and dry General skin exam: no rashes or lesions noted Neuro: General: patient oriented x3 Extrem: General: Yes no clubbing, cyanosis or edema DS: Data Data Completed and Pending Completed studies during hospitalization [Text1]: 06/09/20 12:57 Surgical [PTH] Routine Gallbladder, cholecystectomy: Mild chronic cholecystitis; cholelithiasis. Discharge Plan Discharge Patient Disposition: Home, Self-Care Referrals: Adrian Simons MD [Primary Care Provider] - Dayton Steel MD [Physician] - 1 Week Discharge Medications: New oxycodone 5 mg tablet 5 mg PO Q4H PRN (Reason: pain) Qty: 24 RF: 0 Continued albuterol sulfate 90 mcg/actuation HFA aerosol inhaler 1 - 2 puff inhalation Q6H PRN (Reason: Shortness Of Breath) RF: 0 omeprazole magnesium [Prilosec OTC] 20 mg tablet,delayed release (DR/EC) 20 mg PO DAILY PRN (Reason: heartburn) 90 Days Qty: 90 RF: 1 loratadine 10 mg tablet 10 mg PO DAILY RF: 0 famotidine [Acid Investment Recovery Technician (famotidine)] 20 mg tablet 20 mg PO BEDTIME Qty: 30 RF: 0 Discharge Orders: Discharge Order (Routine); Ordered 06/11/20 Ordered By: Nereyda Waters Diet: low fat, low cholesterol Activity on Discharge: No heavy lifting Stand Alone Forms: Patient Portal Discharge page, Work/School Release Activity Restrictions/Additional Instructions: If the incision area is tender, you may apply an ice pack for short intervals (No more than 20 minutes on, followed by at least 20 minutes off). Do not apply heat. Do not use creams, lotions, or topical antibiotics unless instructed to do so by your surgeon. These can cause infection or allergic reaction. Ok to shower. Remove clear dressings 3 days following your procedure. You have steri strips (small white cloth strips) covering your incision- these will fall off ~1 week. No heavy lifting (>10lbs)! Call Your Doctor If: -Your temperature exceeds 101.5? F -You experience excessive pain or swelling -You have an unexpected reaction to medication -You have excessive bleeding -You experience continued vomiting/nausea -Your incision begins to separate -Your incision shows signs of infection such as increased redness, swelling, excessive pain, drainage (light blood or clear fluid is normal) or heat Care Plan Goals: Return to baseline health following recovery period. Health Concerns: Elevated bilirubin, acute calculous cholecystitis s/p laparoscopic cholecystectomy Plan of Treatment: S/p lap CCY, discharge to home and f/u in office Discharge Date/Time: 06/11/20 09:30
== END 2020-06-11 09:30 | disposition home or self-care (01) | DRG 419 ==
LOC: HO.ED 21:25 → HO.S3 22:39
PROVIDERS: Physician Assistant Surgical; Admitting Provider Surgery; Emergency Provider Student in an Organized Health Care Education/Training Program; PCP Internal Medicine; Visit Provider Surgery
PROC: 0FT44ZZ Resection of Gallbladder, Percutaneous Endoscopic Approach (ICD-10-PCS; CPT 47562; principal; 2020-06-09 12:30)
DX: K80.00 Calculus of gallbladder with acute cholecystitis without obstruction (principal); Z20.822 Contact with and (suspected) exposure to COVID-19; Z88.0 Allergy status to penicillin; Z79.891 Long term (current) use of opiate analgesic; Z79.899 Other long term (current) drug therapy
CPT/HCPCS: 36415; 74181; 76705; 80053; 80076; 81003; 83690; 85025; 87635; 88304; 96374; 96375; 99285; J0131; J1100; J1170; J1885; J1956; J2250; J2270; J2370; J2405; J3010

== ENCOUNTER → 2020-06-17 14:57 | Outpatient (BNVA) | payer OTHER, SELFPAY | PROVIDERS: PCP Internal Medicine; Visit Provider Surgery ==

== ENCOUNTER 2020-06-19 08:45 | Outpatient (REF) | payer OTHER, SELFPAY ==
[2020-06-19 10:21] LABS: Hematocrit 41.4 % (37-47); Hemoglobin 13.1 g/dl (12.0-16.0); Mean Corpuscular HGB Conc 31.6 g/dl (31.0-35.0); Mean Corpuscular Hemoglobin 27.4 pg (27.0-33.0); Mean Corpuscular Volume 86.6 fL (80-98); Mean Platelet Volume 11.4 fL (9.4-12.3); Platelet Count 349 X10*3/uL (160-400); Red Blood Count 4.78 X10*6/uL (4.20-5.50); Red Cell Distribution Width 14.1 % (11.0-16.0); White Blood Count 8.9 X10*3/uL (4.8-10.8)
[2020-06-19 10:58] LABS: Alanine Aminotransferase 525 U/L (0-31); Alkaline Phosphatase 422 U/L (39-117); Anion Gap 14 (12-20); Aspartate Amino Transferase 161 U/L (5-31); Bilirubin Direct 2.4 mg/dL (0.0-0.5); Bilirubin Total 3.8 mg/dL (0.0-1.0); Blood Urea Nitrogen 11 mg/dL (9-16); Calcium 9.4 mg/dL (8.4-10.2); Carbon Dioxide 28 mmol/L (22-29); Chloride 102 mmol/L (96-108); Estimated Glomerular Filt Rate > 60; Glucose Fasting 108 mg/dL (60-99); Potassium 3.9 mmol/L (3.3-5.1); Sodium 140 mmol/L (135-145); Total Protein 7.8 g/dL (6.5-8.0)
== END 2020-06-19 08:46 | disposition home or self-care (01) ==
LOC: HO.LAB 08:45
PROVIDERS: PCP Internal Medicine; Visit Provider Surgery
DX: R74.01 Elevation of levels of liver transaminase levels (principal)
CPT/HCPCS: 36415; 80048; 80076; 85027

== ENCOUNTER → 2020-06-23 13:18 | Outpatient (BNVA) | payer OTHER, SELFPAY | PROVIDERS: PCP Internal Medicine; Visit Provider Surgery ==

== ENCOUNTER 2020-07-19 13:49 | Outpatient (REF) | payer OTHER, SELFPAY ==
[2020-07-19 15:34] LABS: MANUAL DIFF FLAG NO
[2020-07-19 15:40] LABS: Basophils Percent Auto 0.3 % (0-2); Eosinophils Absolute Auto 0.2 X10*3/uL (0.0-0.4); Eosinophils Percent Auto 2.5 % (0-4); Hematocrit 40.1 % (37-47); Hemoglobin 13.4 g/dl (12.0-16.0); Imm Gran Abs Auto 0.02 X10*3/uL (0.00-0.03); Imm Gran Pct Auto 0.3 % (0.0-0.4); Lymphocytes Absolute Auto 1.6 X10*3/uL (1.2-4.9); Lymphocytes Percent Auto 24.3 % (20-40); Mean Corpuscular HGB Conc 33.4 g/dl (31.0-35.0); Mean Corpuscular Volume 83.9 fL (80-98); Mean Platelet Volume 11.7 fL (9.4-12.3); Monocytes Absolute Auto 0.5 X10*3/uL (0.1-1.2); Monocytes Percent Auto 7.8 % (2-11); Neutrophils Absolute Auto 4.2 X10*3/uL (2.0-8.3); Neutrophils Percent Auto 64.8 % (45-73); Platelet Count 209 X10*3/uL (160-400); Red Blood Count 4.78 X10*6/uL (4.20-5.50); White Blood Count 6.4 X10*3/uL (4.8-10.8)
[2020-07-19 16:03] LABS: Alanine Aminotransferase 64 U/L (0-31); Albumin Level 4.4 g/dL (3.5-5.0); Alkaline Phosphatase 108 U/L (39-117); Anion Gap 13 (12-20); Aspartate Amino Transferase 27 U/L (5-31); Bilirubin Total 0.7 mg/dL (0.0-1.0); Blood Urea Nitrogen 7 mg/dL (9-16); Calcium 9.5 mg/dL (8.4-10.2); Carbon Dioxide 28 mmol/L (22-29); Chloride 103 mmol/L (96-108); Estimated Glomerular Filt Rate > 60; Glucose Random 94 mg/dL (60-115); Lipase 38 U/L (8-78); Potassium 4.2 mmol/L (3.3-5.1); Sodium 140 mmol/L (135-145)
[2020-07-20 08:14] LABS: HBS Num1 0.78 mIU/mL (0-7.99); HBsAGNum1 0.34 S/CO (0.00-0.99); Hepatitis B Surface Antigen Negative (Negative); ~Hepatitis B Surface Antibody NONREACTIVE (Nonreactive)
[2020-07-20 08:25] LABS: HBc Num1 0.07 S/CO (0.00-0.79); Hepatitis B Core Antibody Nonreactive (Nonreactive); ~Hepatitis C Antibody Nonreactive (Nonreactive)
[2020-07-20 19:37] LABS: ANA Titer 2 1:40 titer; Anti Nuclear Antibody Screen POSITIVE (NEGATIVE); Anti Nuclear Antibody Titer 1:40 titer
[2020-07-21 09:17] LABS: Hepatitis A Antibody IgM 0.14 Index (0-0.79); ~HepC Num1 0.07 S/CO (0.00-0.79); ~Hepatitis A Antibody IgM Nonreactive (Nonreactive)
[2020-07-21 12:22] LABS: Mitochondrial Antibodies NEGATIVE (NEGATIVE)
[2020-07-23 22:52] LABS: Smooth Muscle Antibody 22 U (<20)
== END 2020-07-19 13:50 | disposition home or self-care (01) ==
LOC: HO.LAB 13:49
PROVIDERS: PCP Internal Medicine; Visit Provider Physician Assistant
DX: R74.01 Elevation of levels of liver transaminase levels (principal); R74.8 Abnormal levels of other serum enzymes; R10.11 Right upper quadrant pain; R94.5 Abnormal results of liver function studies
CPT/HCPCS: 36415; 80053; 83690; 85025; 86038; 86039; 86255; 86256; 86704; 86706; 86709; 86803; 87340

== ENCOUNTER 2020-12-10 12:52 | Outpatient (REF) | payer OTHER, SELFPAY ==
--- NOTE | ~2020-12-10 | MM_ITS ---
EXAMINATION: MM DIAGNOSTIC DIGITAL BREAST TOMOSYNTHESIS, BILATERAL US DIAGNOSTIC ULTRASOUND BREAST, LEFT CLINICAL INFORMATION: Due for yearly. Also follow-up probable benign regional nodularity posterior upper inner left breast. The lifetime risk of breast cancer based on the Tyrer-Cuzick Model is 7%. COMPARISON: Mammography: 12/12/2019, 12/05/2018 (diagnostic, BI-RADS 3), 09/12/2013; targeted left breast ultrasound 12/05/2018, 06/09/2019, 12/12/2019. TECHNIQUE: Digital breast tomosynthesis is performed in both the craniocaudal and mediolateral oblique views along with computer-aided detection (CAD). Synthesized 2D images are generated from the tomosynthesis. Ultrasound left breast is targeted to the posterior upper inner quadrant. Grayscale imaging and color Doppler are performed without and with harmonics. FINDINGS: The breasts are heterogeneously dense, which may obscure small masses (ACR BI-RADS breast composition Category c). There is fine fibronodular parenchymal pattern similar to prior studies. Right breast shows no interval mass or architectural abnormality. Neither breast shows abnormal calcifications. The axilla and skin contours are unremarkable. Nodular asymmetry posterior 11:00 left breast is stable from prior exams and without significant change from remote 2-D exam 2013. No developing density. There was a dominant cyst in this area on prior imaging 2018 which has subsequently resolved. Ultrasound left breast shows stable grouped hypoechoic foci, possibly grouped cysts or hamartoma. Overall appearance and size are stable from prior studies. No abnormal color flow. This concludes the long-term surveillance. Results are discussed with the patient at time of visit. MM/MM tomosynthesis diagnostic BI IMPRESSION: 1. Left: Stable grouped nodularity posterior upper inner quadrant. No significant changes from prior studies, now considered to be benign. 2. Right: No mammographic evidence of malignancy. ASSESSMENT: BI-RADS 2: Benign RECOMMENDATION: Routine annual mammography screening. This patient's information was entered into a reminder system with a target due date for their next mammogram.
== END 2020-12-10 12:53 | disposition home or self-care (01) ==
LOC: HO.MAMMO 12:52
PROVIDERS: Visit Provider Advanced Practice Midwife
DX: R92.2 Inconclusive mammogram (principal)
CPT/HCPCS: 76642; 77062; 77066

== ENCOUNTER 2021-02-18 09:01 | Outpatient (REF) | payer OTHER, SELFPAY | END 2021-02-18 09:02 | disposition home or self-care (01) | LOC: HO.LAB 09:01 | PROVIDERS: PCP Internal Medicine; Visit Provider Advanced Practice Midwife | DX: N90.89 Other specified noninflammatory disorders of vulva and perineum (principal) | CPT/HCPCS: 87071; 87205 ==

== ENCOUNTER 2021-05-10 09:00 | Outpatient (REF) | payer OTHER, SELFPAY ==
[2021-05-13 10:46] LABS: HPV mRNA E6/E7 rflx Not Detected (Not Detected)
== END 2021-05-10 09:01 | disposition home or self-care (01) ==
LOC: HO.LAB 09:00
PROVIDERS: PCP Internal Medicine; Visit Provider Advanced Practice Midwife
DX: Z01.419 Encounter for gynecological examination (general) (routine) without abnormal findings (principal); Z11.51 Encounter for screening for human papillomavirus (HPV)
CPT/HCPCS: 87624; 88142

== ENCOUNTER 2021-12-13 12:23 | Outpatient (REF) | payer OTHER, SELFPAY ==
--- NOTE | ~2021-12-13 | MM_ITS ---
EXAMINATION: MM SCREENING DIGITAL BREAST TOMOSYNTHESIS, BILATERAL CLINICAL INFORMATION: Screening. Asymptomatic. The lifetime risk of breast cancer based on the Tyrer-Cuzick Model is 7%. COMPARISON: Mammography: 12/10/2020, 12/12/2019, 12/05/2018 TECHNIQUE: Digital breast tomosynthesis is performed in both the craniocaudal and mediolateral oblique views along with computer-aided detection (CAD). Synthesized 2D images are generated from the tomosynthesis. FINDINGS: The breasts are heterogeneously dense, which may obscure small masses (ACR BI-RADS breast composition Category c). Parenchymal pattern is similar to prior studies. There is no developing density or architectural abnormality. There is fine fibronodular pattern with stable nodular asymmetry posterior left breast just medial to midline on CC view. No abnormal calcifications. The axilla are unremarkable. No significant changes. MM/MM tomosynthesis screening BI IMPRESSION: No mammographic evidence of malignancy. ASSESSMENT: BI-RADS 2: Benign RECOMMENDATION: Routine annual mammography screening. This patient's information was entered into a reminder system with a target due date for their next mammogram.
== END 2021-12-13 12:24 | disposition home or self-care (01) ==
LOC: HO.MAMMO 12:23
PROVIDERS: Visit Provider Internal Medicine
DX: Z12.31 Encounter for screening mammogram for malignant neoplasm of breast (principal)
CPT/HCPCS: 77063; 77067

== ENCOUNTER 2021-12-29 09:25 | Outpatient (REF) | payer OTHER, SELFPAY ==
[2021-12-29 09:40] LABS: MANUAL DIFF FLAG NO
[2021-12-29 10:32] LABS: Basophils Percent Auto 0.2 % (0-2); Eosinophils Absolute Auto 0.2 X10*3/uL (0.0-0.4); Hematocrit 39.4 % (37.0-47.0); Imm Gran Abs Auto 0.02 X10*3/uL (0.00-0.03); Imm Gran Pct Auto 0.3 % (0.0-0.4); Lymphocytes Absolute Auto 1.4 X10*3/uL (1.2-4.9); Lymphocytes Percent Auto 22.7 % (20-40); Mean Corpuscular Hemoglobin 27.9 pg (27.0-33.0); Mean Corpuscular Volume 84.5 fL (80.0-98.0); Mean Platelet Volume 11.7 fL (9.4-12.3); Monocytes Absolute Auto 0.6 X10*3/uL (0.1-1.2); Monocytes Percent Auto 9.9 % (2-11); Neutrophils Absolute Auto 3.8 x10*3/uL (2.0-8.3); Neutrophils Percent Auto 62.9 % (45-73); Platelet Count 244 X10*3/uL (160-400); Red Blood Count 4.66 X10*6/uL (4.20-5.50); Red Cell Distribution Width 12.5 % (11.0-16.0)
[2021-12-29 11:08] LABS: Alanine Aminotransferase 25 U/L (0-31); Albumin Level 4.1 g/dL (3.5-5.0); Alkaline Phosphatase 86 U/L (39-117); Anion Gap 15 (12-20); Aspartate Amino Transferase 18 U/L (5-31); Bilirubin Total 0.5 mg/dL (0.0-1.0); Blood Urea Nitrogen 10 mg/dL (9-16); Calcium 9.1 mg/dL (8.4-10.2); Carbon Dioxide 25 mmol/L (22-29); Chloride 104 mmol/L (96-108); Cholesterol 213 mg/dL; Estimated Glomerular Filt Rate > 60; Glucose Fasting 104 mg/dL (60-99); HDL Cholesterol 39 mg/dL; LDL Cholesterol Calculated 149 mg/dl; Sodium 140 mmol/L (135-145); Total Protein 7.3 g/dL (6.5-8.0); Triglycerides 125 mg/dL
[2021-12-29 11:15] LABS: Appearance Urine Clear; Color Urine Yellow; Glucose Urine UA Negative (Negative); Leukocyte Esterase Urine Small (1+) (Negative); Nitrite Urine Negative (Negative); PH 5.5 (5.0-9.0); Specific Gravity - Urine 1.015 (1.005-1.025); UMIC TRIGGER UACC YES; Urine Blood Negative (Negative); Urine Ketones Negative (Negative); Urine Protein Negative (Neg-Trace)
[2021-12-29 11:23] LABS: Bacteria Urine 4+ (None Seen); Hyaline Casts Urine 0-2 /LPF (0-2); RBC Urine 0-2 /HPF (0-2); UACC Culture Trigger YES
[2021-12-29 11:30] LABS: TSH reflex Free T4 0.96 uIU/mL (0.32-4.0); Vitamin D 25-OH Total 20.1 ng/mL (>30)
== END 2021-12-29 09:26 | disposition home or self-care (01) ==
LOC: HO.LAB 09:25
PROVIDERS: PCP Internal Medicine; Visit Provider Internal Medicine
DX: Z00.00 Encounter for general adult medical examination without abnormal findings (principal); E78.00 Pure hypercholesterolemia, unspecified; E55.9 Vitamin D deficiency, unspecified
CPT/HCPCS: 36415; 80053; 80061; 81001; 82306; 84443; 85025; 87086; 87088; 87186

== ENCOUNTER 2022-02-23 23:55 | Emergency (ER) | payer OTHER, SELFPAY ==
--- NOTE | ~2022-02-23 | XR_ITS ---
EXAMINATION: XR CHEST CLINICAL INFORMATION: Chest pain COMPARISON: None TECHNIQUE: Frontal view of the chest was obtained. FINDINGS: Lungs are clear. No consolidation, pneumothorax, or pleural effusion. Cardiac and mediastinal contours are normal. Pulmonary vasculature is unremarkable. No acute osseous findings. XR/XR chest 1V IMPRESSION: No acute pulmonary disease.
--- NOTE | 2022-02-23 23:59 | ECG_ITS ---
Test Reason : CHEST PAIN Blood Pressure : / mmHG Vent. Rate : 086 BPM Atrial Rate : 086 BPM P-R Int : 152 ms QRS Dur : 082 ms QT Int : 376 ms P-R-T Axes : 031 016 061 degrees QTc Int : 449 ms Normal sinus rhythm RSR' or QR pattern in V1 suggests right ventricular conduction delay Nonspecific T wave abnormality Abnormal ECG No previous ECGs available Referred By: Generic ED Physician Electronically Signed By:BAY SCHWARTZ MD
[2022-02-24 00:15] VITALS: BP 149/89; PULSE 82; RESP 17; TEMP 36.3; O2SAT 97; BMI 41.5
--- NOTE | 2022-02-24 00:41 | ED.CHESTPAIN ---
HPI - Chest Pain General Chief Complaint: Chest Pain Stated Complaint: Chest pain Time Seen by Provider: 02/24/22 00:41 Source: patient Mode of arrival: ambulatory Limitations: no limitations History of Present Illness HPI narrative: Patient no significant past medical history status post cholecystectomy noticed to have pain in the right chest is patient in lower part on taking deep inspiration feel little gaseous no abdominal bloating no nausea no vomiting no cough no fever or chills Related Data Previous Rx's Medication Instructions Recorded albuterol sulfate 90 mcg/actuation 1 - 2 puff inhalation Q6H PRN 09/13/21 aerosol inhaler Shortness Of Breath 30 days #8.5 grams loratadine 10 mg tablet 10 mg PO DAILY PRN allergy 09/13/21 symptoms 90 days #90 tabs mometasone 0.1 % topical cream 1 appl topical DAILY PRN rash 30 09/13/21 days #45 grams ibuprofen 600 mg tablet 600 mg PO Q6H PRN fever or pain 02/24/22 #30 tabs Allergies Allergy/AdvReac Type Severity Reaction Status Date / Time Penicillins [PENICILLINS] Allergy Unknown HIVES Verified 02/24/22 00:15 Review of Systems Review of Systems: Yes all other systems are reviewed and are negative PMFSH Past Medical History Medical History Allergic rhinitis Annual physical exam Chondromalacia patellae of right knee Chondromalacia, patella GERD without esophagitis Morbid obesity with BMI of 40.0-44.9, adult Obesity (BMI 30-39.9) Obesity, morbid, BMI 40.0-49.9 Pure hypercholesterolemia Vitamin D deficiency Surgical History History of tubal ligation Previous section S/P laparoscopic cholecystectomy Family History Family History Father Esophageal cancer Mother Diabetes Maternal Uncle Colon cancer Social History Social History Household Members: Spouse Housing: House Do you presently have visiting nurse or other home services: No Alcohol intake: current Alcohol intake frequency: holidays/special occasions only Patient Tobacco Use Status: Never used Tobacco Second Hand Smoke Exposure: Yes Advance Directives: No Advance Directives Information Provided: Yes service: No Current occupational status: employed Current occupation: [employer] Cognitive needs: No Hearing needs: No Vision needs: Yes Physical Exam Vital Signs: Vital Signs: Last Vital Signs Temp 97.4 F 02/24/22 00:15 Pulse 82 02/24/22 00:15 Resp 17 02/24/22 00:15 BP 149/89 H 02/24/22 00:15 Pulse Ox 97 02/24/22 00:15 O2 Del Method 02/24/22 00:15 BMI result Body Mass Index 41.5 Appearance: Alert. Oriented X3. No acute distress. Eyes: No pallor it ENT: Pharynx normal. Oral Mucosa moist Neck: Normal inspection. Neck supple. CVS: Normal heart rate and rhythm. Pulses normal. Respiratory: No respiratory distress. Equal air entry bilateral, no wheezing/rales/rhonchi no pleural rub Abdomen: Soft and nontender. Bowel sounds are present, no mass palpable, no CVA tenderness Skin: Skin warm and dry. Normal skin color. Normal skin turgor. Extremities: No lower extremity edema. No calf tenderness Neuro: Oriented X 3. No motor deficit. Medications Administered Discontinued Medications Generic Name Dose Route Start Last Admin Trade Name Freq PRN Reason Stop Dose Admin Ketorolac Tromethamine 30 mg 02/24/22 00:51 02/24/22 00:58 Ketorolac Tromethamine 30 Mg/Ml Vial IVPUSH 02/24/22 00:52 30 mg ONCE ONE Administration MDM - Chest Pain MDM Narrative Medical decision making narrative: Patient with right-sided chest pain status is normal D-dimer negative troponin negative chest x-ray negative infiltrate likely has pleurisy responded to Toradol feels much better now will discharge patient home Differential Diagnosis Differential diagnosis: Likely pneumothorax, costochondritis and biliary colic Lab Data Attestation: I reviewed the patient's lab results. Result diagrams: 02/24/22 00:45 02/24/22 00:45 Labs: Lab Results 02/24/22 02/24/22 02/24/22 Range/Units 00:45 00:45 00:45 WBC 9.3 (4.8-10.8) X10*3/uL RBC 4.95 (4.20-5.50) X10*6/uL Hgb 13.7 (12.0-16.0) g/dl Hct 41.6 (37.0-47.0) % MCV 84.0 (80.0-98.0) fL MCH 27.7 (27.0-33.0) pg MCHC 32.9 (31.0-35.0) g/dl RDW 12.4 (11.0-16.0) % Plt Count 273 (160-400) X10*3/uL MPV 11.3 (9.4-12.3) fL Immature Gran % (Auto) 0.4 (0.0-0.4) % Neut % (Auto) 68.3 (45-73) % Lymph % (Auto) 20.1 (20-40) % [place] % (Auto) 9.0 (2-11) % Eos % (Auto) 2.0 (0-4) % Baso % (Auto) 0.2 (0-2) % Lymph # (Auto) 1.9 (1.2-4.9) X10*3/uL [place] # (Auto) 0.8 (0.1-1.2) X10*3/uL Eos # (Auto) 0.2 (0.0-0.4) X10*3/uL Baso # (Auto) 0.0 (0.0-0.2) X10*3/uL Abs Immat Gran (auto) 0.04 H (0.00-0.03) X10*3/uL Absolute Neuts (auto) 6.4 (2.0-8.3) x10*3/uL Absolute Nucleated RBC 0.000 (0.0-0.012) X10*3/uL Nucleated RBC % (auto) 0.0 (0.0-0.2) /100WBC PT (10.0-13.1) SEC INR (0.9-1.1) D-Dimer High Sensitivty NG/ML Sodium 139 (135-145) mmol/L Potassium 4.1 (3.3-5.1) mmol/L Chloride 103 (96-108) mmol/L Carbon Dioxide 27 (22-29) mmol/L Anion Gap 13 (12-20) BUN 12 (9-16) mg/dL Creatinine 0.83 (0.5-1.4) mg/dL Estim Creat Clear Calc 92.7 Estimated GFR > 60 Random Glucose 116 H (60-115) mg/dL Calcium 9.4 (8.4-10.2) mg/dL Total Bilirubin 0.4 (0.0-1.0) mg/dL Direct Bilirubin < 0.2 (0.0-0.5) mg/dL AST 22 (5-31) U/L ALT 27 (0-31) U/L Alkaline Phosphatase 93 (39-117) U/L Troponin I High Sens < 3.5 (<3.5-17.0) ng/L Total Protein 7.7 (6.5-8.0) g/dL Albumin 4.3 (3.5-5.0) g/dL 02/24/22 Range/Units 00:52 WBC (4.8-10.8) X10*3/uL RBC (4.20-5.50) X10*6/uL Hgb (12.0-16.0) g/dl Hct (37.0-47.0) % MCV (80.0-98.0) fL MCH (27.0-33.0) pg MCHC (31.0-35.0) g/dl RDW (11.0-16.0) % Plt Count (160-400) X10*3/uL MPV (9.4-12.3) fL Immature Gran % (Auto) (0.0-0.4) % Neut % (Auto) (45-73) % Lymph % (Auto) (20-40) % [place] % (Auto) (2-11) % Eos % (Auto) (0-4) % Baso % (Auto) (0-2) % Lymph # (Auto) (1.2-4.9) X10*3/uL [place] # (Auto) (0.1-1.2) X10*3/uL Eos # (Auto) (0.0-0.4) X10*3/uL Baso # (Auto) (0.0-0.2) X10*3/uL Abs Immat Gran (auto) (0.00-0.03) X10*3/uL Absolute Neuts (auto) (2.0-8.3) x10*3/uL Absolute Nucleated RBC (0.0-0.012) X10*3/uL Nucleated RBC % (auto) (0.0-0.2) /100WBC PT 12.2 (10.0-13.1) SEC INR 1.1 (0.9-1.1) D-Dimer High Sensitivty < 150 NG/ML Sodium (135-145) mmol/L Potassium (3.3-5.1) mmol/L Chloride (96-108) mmol/L Carbon Dioxide (22-29) mmol/L Anion Gap (12-20) BUN (9-16) mg/dL Creatinine (0.5-1.4) mg/dL Estim Creat Clear Calc Estimated GFR Random Glucose (60-115) mg/dL Calcium (8.4-10.2) mg/dL Total Bilirubin (0.0-1.0) mg/dL Direct Bilirubin (0.0-0.5) mg/dL AST (5-31) U/L ALT (0-31) U/L Alkaline Phosphatase (39-117) U/L Troponin I High Sens (<3.5-17.0) ng/L Total Protein (6.5-8.0) g/dL Albumin (3.5-5.0) g/dL ECG Data ECG #1: Attestation: I personally reviewed and interpreted this ECG as follows: Interpretation: Normal sinus rhythm heart rate 86 normal interval normal axis no acute ST depression no acute ischemia Discharge Plan Discharge Clinical Impression: Chest pain, pleuritic Patient Disposition: Home, Self-Care Instructions: Pleurisy (ED) Additional Instructions: Your chest pain is likely from inflammation of the lining of the lung Take ibuprofen as advised Report to the ER/PCP if increased shortness of breath/ cough/ fever Prescriptions: New ibuprofen 600 mg tablet 600 mg PO Q6H PRN (Reason: fever or pain) Qty: 30 0RF No Action mometasone 0.1 % cream 1 appl topical DAILY PRN (Reason: rash) 30 Days Qty: 45 2RF loratadine 10 mg tablet 10 mg PO DAILY PRN (Reason: allergy symptoms) 90 Days Qty: 90 1RF albuterol sulfate 90 mcg/actuation HFA aerosol inhaler 1 - 2 puff inhalation Q6H PRN (Reason: Shortness Of Breath) 30 Days Qty: 8.5 3RF
[2022-02-24 00:50] LABS: MANUAL DIFF FLAG NO
[2022-02-24 00:51] LABS: Basophils Percent Auto 0.2 % (0-2); Eosinophils Absolute Auto 0.2 X10*3/uL (0.0-0.4); Hematocrit 41.6 % (37.0-47.0); Hemoglobin 13.7 g/dl (12.0-16.0); Imm Gran Abs Auto 0.04 X10*3/uL (0.00-0.03); Imm Gran Pct Auto 0.4 % (0.0-0.4); Lymphocytes Absolute Auto 1.9 X10*3/uL (1.2-4.9); Lymphocytes Percent Auto 20.1 % (20-40); Mean Corpuscular HGB Conc 32.9 g/dl (31.0-35.0); Mean Corpuscular Hemoglobin 27.7 pg (27.0-33.0); Mean Platelet Volume 11.3 fL (9.4-12.3); Monocytes Absolute Auto 0.8 X10*3/uL (0.1-1.2); Neutrophils Absolute Auto 6.4 x10*3/uL (2.0-8.3); Neutrophils Percent Auto 68.3 % (45-73); Platelet Count 273 X10*3/uL (160-400); Red Blood Count 4.95 X10*6/uL (4.20-5.50); Red Cell Distribution Width 12.4 % (11.0-16.0); White Blood Count 9.3 X10*3/uL (4.8-10.8)
[2022-02-24] MEDS: Ketorolac Tromethamine 30 MG/ML VIAL IVPUSH (00:58)
[2022-02-24 01:09] LABS: INTERNATIONAL NORM RATIO 1.1 (0.9-1.1); Prothrombin Time 12.2 SEC (10.0-13.1)
[2022-02-24 01:12] LABS: D Dimer High Sensitivity < 150 NG/ML
[2022-02-24 01:21] LABS: Troponin-I High Sensitivity < 3.5 ng/L (<3.5-17.0)
[2022-02-24 01:59] LABS: Alanine Aminotransferase 27 U/L (0-31); Albumin Level 4.3 g/dL (3.5-5.0); Alkaline Phosphatase 93 U/L (39-117); Anion Gap 13 (12-20); Aspartate Amino Transferase 22 U/L (5-31); Bilirubin Direct < 0.2 mg/dL (0.0-0.5); Bilirubin Total 0.4 mg/dL (0.0-1.0); Blood Urea Nitrogen 12 mg/dL (9-16); Calcium 9.4 mg/dL (8.4-10.2); Carbon Dioxide 27 mmol/L (22-29); Chloride 103 mmol/L (96-108); Creatinine Clr Calc Pharmacy 92.7; Estimated Glomerular Filt Rate > 60; Glucose Random 116 mg/dL (60-115); Potassium 4.1 mmol/L (3.3-5.1); Sodium 139 mmol/L (135-145); Total Protein 7.7 g/dL (6.5-8.0)
[2022-02-24 03:05] LABS: Lipase 34 U/L (8-78)
== END 2022-02-24 02:10 | disposition home or self-care (01) ==
PROVIDERS: Emergency Provider Internal Medicine; PCP Internal Medicine
DX: R07.89 Other chest pain (principal); R09.1 Pleurisy; Z79.899 Other long term (current) drug therapy
CPT/HCPCS: 36415; 71045; 80048; 80076; 83690; 84484; 85025; 85379; 85610; 93005; 96374; 99284; J1885

== ENCOUNTER → 2022-05-26 15:30 | Outpatient (BNVA) | payer OTHER, SELFPAY | PROVIDERS: PCP Internal Medicine; Visit Provider Internal Medicine | DX: Z13.89 Encounter for screening for other disorder (principal) ==

== ENCOUNTER 2022-06-29 10:42 | Outpatient (REF) | payer OTHER, SELFPAY ==
[2022-06-29 12:38] LABS: Estimated Average Glucose 105 mg/dL; Hemoglobin A1c % 5.3 %
[2022-06-29 13:08] LABS: Alanine Aminotransferase 30 U/L (0-31); Albumin Level 4.1 g/dL (3.5-5.0); Alkaline Phosphatase 81 U/L (39-117); Anion Gap 15 (12-20); Aspartate Amino Transferase 22 U/L (5-31); Bilirubin Total 0.5 mg/dL (0.0-1.0); Blood Urea Nitrogen 14 mg/dL (9-16); Calcium 9.2 mg/dL (8.4-10.2); Carbon Dioxide 26 mmol/L (22-29); Chloride 105 mmol/L (96-108); Cholesterol 224 mg/dL; Estimated Glomerular Filt Rate > 60; Glucose Fasting 97 mg/dL (60-99); HDL Cholesterol 45 mg/dL; LDL Cholesterol Calculated 160 mg/dl; Potassium 4.3 mmol/L (3.3-5.1); Sodium 142 mmol/L (135-145); Total Protein 7.4 g/dL (6.5-8.0); Triglycerides 95 mg/dL
== END 2022-06-29 10:43 | disposition home or self-care (01) ==
LOC: HO.LAB 10:42
PROVIDERS: PCP Internal Medicine; Visit Provider Internal Medicine
DX: E78.00 Pure hypercholesterolemia, unspecified (principal); R73.01 Impaired fasting glucose
CPT/HCPCS: 36415; 80053; 80061; 83036

== ENCOUNTER 2022-07-31 08:01 | Outpatient (RCR) | payer OTHER, SELFPAY ==
[2022-07-31 08:08] VITALS: BP 130/76; PULSE 74
--- NOTE | 2022-07-31 09:36 | MHC.PT.EP ---
[facility] [place] Office [place] Office [place] Office [address] [place] [address] [phone] F: [phone] F: [phone] F: [phone] F: [phone] Physical Therapy Plan of Care Date of Evaluation: Date of Surgery: NA Diagnosis: Benign paroxysmal vertigo, L side Assessment: Jose is a 47 year old female who is referred to PT for benign paraoxysmal vertigo- L side . She reports of having symptoms of room spinning dizziness for about a 1.5 month but has been feeling good for the last week. Her symptoms are present with supine <> sit and rolling in bed and they last for about 10 seconds. She denies having any nausea or vomiting. On PT examination she presented with intact saccades, smooth pursuit, visual tracking, negative head thrust, intact DVA and negative for BPPV in B herrera pike and B roll. She presented with mildly impaired dynamic balance suggestive of mild vestibular hypofunction. 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 She would benefit from skilled PT to address the balance impairments or trial HEP at home for balance. Jose stated she will trial working on balance exercise at home. She would therefore not be coming to PT. She was advised to return to PT in case of worsening of symptoms. Frequency and Duration: The patient will be seen Short Term Goals: Half-Way Goals: Treatment Plan: Modalities to reduce pain, spasms and effusion. Manual therapy to restore motion and function. Therapeutic exercise to improve strength and flexibility. Neuromuscular re-education for posture and balance. Therapeutic activities to return to functional activities of daily living. Electronically signed by: Nica Hansen PT DPT Please sign and return to therapist. Thank you for your referral.
--- NOTE | 2022-09-06 10:09 | MHC.PT.DC ---
[facility] [place] Office [place] Office [place] Office [address] 140 [facility] [phone] F: [phone] F: [phone] F: [phone] F: [phone] Physical Therapy Discharge Report Diagnosis: Benign paroxysmal vertigo, L side Date of Surgery: NA Date of Evaluation: 07/31/22 Date of Discharge: 09/06/22 Treatments to Date: 1 Cancellations to Date: 0 No Shows to Date: 0 Discharge Status: Discharge Summary: Jose has had no symptoms of vertigo in over a month. She is therefore being d/c from PT. Electronically signed by: Nica Hansen PT DPT Please sign and return to therapist. Thank you for your referral.
== END 2022-09-06 10:09 | disposition home or self-care (01) ==
LOC: HO.PT 08:01
PROVIDERS: PCP Internal Medicine; Visit Provider Internal Medicine
DX: H81.10 Benign paroxysmal vertigo, unspecified ear (principal)
CPT/HCPCS: 97112; 97161

== ENCOUNTER 2022-08-22 09:31 | Outpatient (REF) | payer OTHER, SELFPAY ==
[2022-08-23 10:10] LABS: BV Int Neg Control Negative (Negative); BV Int Pos Control Positive (Positive)
== END 2022-08-22 09:32 | disposition home or self-care (01) ==
LOC: HO.LAB 09:31
PROVIDERS: PCP Internal Medicine; Visit Provider Advanced Practice Midwife
DX: Z01.419 Encounter for gynecological examination (general) (routine) without abnormal findings (principal); R82.90 Unspecified abnormal findings in urine; R23.2 Flushing; N89.8 Other specified noninflammatory disorders of vagina
CPT/HCPCS: 81003; 87086; 87088; 87186; 87480; 87510; 87660

== ENCOUNTER 2022-11-01 09:00 | Outpatient (REF) | payer OTHER, SELFPAY ==
[2022-11-01 09:15] LABS: MANUAL DIFF FLAG NO
[2022-11-01 10:08] LABS: Appearance Urine Clear; Color Urine Yellow; Glucose Urine UA Negative (Negative); Leukocyte Esterase Urine Negative (Negative); Nitrite Urine Negative (Negative); Urine Blood Negative (Negative); Urine Ketones Negative (Negative); Urine Protein Negative (Neg-Trace)
[2022-11-01 10:18] LABS: Basophils Percent Auto 0.1 % (0-2); Eosinophils Absolute Auto 0.1 X10*3/uL (0.0-0.4); Eosinophils Percent Auto 1.9 % (0-4); Hematocrit 39.8 % (37.0-47.0); Hemoglobin 13.6 g/dl (12.0-16.0); Imm Gran Abs Auto 0.02 X10*3/uL (0.00-0.03); Imm Gran Pct Auto 0.3 % (0.0-0.4); Lymphocytes Absolute Auto 1.3 X10*3/uL (1.2-4.9); Lymphocytes Percent Auto 18.5 % (20-40); Mean Corpuscular HGB Conc 34.2 g/dl (31.0-35.0); Mean Corpuscular Hemoglobin 28.9 pg (27.0-33.0); Mean Corpuscular Volume 84.7 fL (80.0-98.0); Mean Platelet Volume 11.9 fL (9.4-12.3); Monocytes Absolute Auto 0.5 X10*3/uL (0.1-1.2); Neutrophils Absolute Auto 4.9 x10*3/uL (2.0-8.3); Neutrophils Percent Auto 72.2 % (45-73); Platelet Count 228 X10*3/uL (160-400); Red Cell Distribution Width 12.4 % (11.0-16.0); White Blood Count 6.8 X10*3/uL (4.8-10.8)
[2022-11-01 11:07] LABS: Alanine Aminotransferase 28 U/L (0-31); Alkaline Phosphatase 93 U/L (39-117); Anion Gap 11 (12-20); Aspartate Amino Transferase 18 U/L (5-31); Bilirubin Total 0.5 mg/dL (0.0-1.0); Blood Urea Nitrogen 10 mg/dL (9-16); Calcium 9.2 mg/dL (8.4-10.2); Carbon Dioxide 28 mmol/L (22-29); Chloride 105 mmol/L (96-108); Cholesterol 144 mg/dL; Estimated Glomerular Filt Rate > 60; Glucose Fasting 102 mg/dL (60-99); HDL Cholesterol 42 mg/dL; LDL Cholesterol Calculated 82 mg/dl; Potassium 3.9 mmol/L (3.3-5.1); Sodium 140 mmol/L (135-145); Total Protein 7.6 g/dL (6.5-8.0); Triglycerides 103 mg/dL
[2022-11-01 11:32] LABS: TSH reflex Free T4 1.39 uIU/mL (0.32-4.0); Vitamin D 25-OH Total 24.1 ng/mL (>30)
== END 2022-11-01 09:01 | disposition home or self-care (01) ==
LOC: HO.LAB 09:00
PROVIDERS: PCP Internal Medicine; Visit Provider Internal Medicine
DX: E78.00 Pure hypercholesterolemia, unspecified (principal); I10 Essential (primary) hypertension; R30.0 Dysuria; E55.9 Vitamin D deficiency, unspecified
CPT/HCPCS: 36415; 80053; 80061; 81003; 82306; 84443; 85025

== ENCOUNTER 2022-11-01 16:24 | Outpatient (AMB) | payer OTHER, SELFPAY ==
[2022-11-01 16:25] VITALS: BP 124/80; PULSE 87; O2SAT 97; BMI 42.6
--- NOTE | 2022-11-01 16:25 | MHC.PC.OV ---
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 Accompanied by: Self / Same As Patient Allergies Penicillins [PENICILLINS] Allergy (Unknown, Verified 11/01/22 16:55) HIVES Medication List - Last Reconciled 11/01/22 by Adrian Simons MD albuterol sulfate 90 mcg/actuation 1 - 2 puffs inhalation Q6H PRN 30 days atorvastatin 10 mg PO BEDTIME 90 days ibuprofen 600 mg PO Q6H PRN loratadine 10 mg PO DAILY PRN 90 days mometasone 0.1% 1 appl topical DAILY PRN 30 days Tobacco use date assessed: 11/01/22 Dental Screening Dental Screen Date: 11/01/22 Did you have a dental visit in the last 12 months?: No Did you have a dental problem in the last 6 months where you did not have access to dental care?: No Was dental information given to patient?: No HPI 4M follow up HPI Details Patient comes in today for her follow up visit States that she feels okay She denies any headaches or dizziness Denies any chest pains, no SOB No nausea/vomiting, no abdominal pain No change in bowel habits noted States that she is tolerating her Atorvastatin so far with no issues Had her follow up labs done earlier this morning - to discuss her results [facility], [facility] Medical History Abnormal urine odor Allergic rhinitis Chondromalacia patellae of right knee Chondromalacia, patella GERD without esophagitis Hot flashes Morbid obesity with BMI of 40.0-44.9, adult Obesity (BMI 30-39.9) Obesity, morbid, BMI 40.0-49.9 Pure hypercholesterolemia Vitamin D deficiency Surgical History History of tubal ligation Previous section S/P laparoscopic cholecystectomy Family History Father Esophageal cancer Mother Diabetes Maternal Uncle Colon cancer Social History Household Members: Spouse Housing: House Do you presently have visiting nurse or other home services: No Alcohol intake: current Alcohol intake frequency: holidays/special occasions only Patient Tobacco Use Status: Never used Tobacco e-Cigarette/Vaping Use: Never Used Second Hand Smoke Exposure: Yes service: No Current occupational status: employed Current occupation: [email or web address] Sexual orientation: Straight/Heterosexual Gender identity: Female Cognitive needs: No Hearing needs: No Vision needs: Yes Questionnaire PHQ-9 Over the last 2 weeks, how often have you been bothered by any of the following problems? 1. Little interest or pleasure in doing things: not at all 2. Feeling down, depressed, or hopeless: not at all 3. Trouble falling or staying asleep, or sleeping too much: nearly every day 4. Feeling tired or having little energy: not at all 5. Poor appetite or overeating: not at all 6. Feeling bad about yourself - or that you are a failure or have let yourself or your family down: not at all 7. Trouble concentrating on things, such as reading the newspaper or watching television: not at all 8. Moving or speaking so slowly that other people could have noticed. Or the opposite - being so fidgety or restless that you have been moving around a lot more than usual: not at all 9. Thoughts that you would be better off or of hurting yourself in some way: not at all Total score: 3 Depression Screening Interpretation: Negative 33196 - PHQ-9 Billing: Yes Source: Developed by Drs. Cesario Vasquez, Leila Mcdowell, Julio Michel and colleagues, with an educational mónica from [employer]. Thrive Questionnaire Date Thrive assessed: 11/01/22 I am a: Patient What is your living situation today?: I have a steady place to live Within the past 12 months, did the food you bought not last and you didn't have the money to get more?: Never true Within the past 12 months, did you worry whether your food would run out before you got money to buy more?: Never true Do you have trouble paying for medicines?: No Do you have trouble getting transportation to medical appointments?: No Do you have trouble paying your heating and electricity bill?: No Do you have trouble taking care of your child, family member or friend?: No Do you have trouble with day-to-day activities such as bathing, preparing meals, shopping, managing finances, etc.?: No Are you currently unemployed and looking for a job?: No Are you interested in more education?: No Please select the resources that you would like help with: None Currently or been in a relationship where the following occur: no concerns reported AUDIT C Alcohol Use Questionnaire (AUDIT-C) 1. How often do you have a drink containing alcohol?: Monthly or less 2. How many drinks containing alcohol do you have on a typical day when you are drinking?: 1 or 2 3. How often do you have six or more drinks on one occasion?: Never Total Score: 1 Score Reviewed/Action Taken: Yes DEVONTE-7 AMB Questionnaire DEVONTE-7 Date DEVONTE - 7 assessed: 11/01/22 Feeling nervous, anxious, or on edge: 0 = Not at all Not being able to stop or control worryin = Not at all Worrying too much about different things: 0 = Not at all Trouble relaxin = Several days Being so restless that it is hard to sit still: 0 = Not at all Becoming easily annoyed or irritable: 0 = Not at all Feeling afraid as if something awful might happen: 0 = Not at all Total DEVONTE-7 score (0-4 normal; 5-9 mild; 10-14 moderate; 15-21 severe): 1 Source: Developed by Drs. Cesario Vasquez, Leila Mcdowell, Julio Michel and colleagues, with an educational mónica from [employer]. Review of Systems Const Denies chills, Denies fatigue, Denies fever(s) and Denies headache(s) ENT Denies dysphagia, Denies dizziness, Denies otalgia, Denies headache(s), Denies odynophagia and Denies sore throat Card Denies chest pain, Denies palpitations and Denies dyspnea Resp Denies cough and Denies dyspnea GI Denies abdominal pain, Denies constipation, Denies dysphagia, Denies heartburn, Denies diarrhea, Denies nausea, Denies odynophagia and Denies vomiting Denies difficulty voiding, Denies nocturia and Denies dysuria Skin/Breast Denies rash Neuro Denies dizziness and Denies headache(s) Endo Denies fatigue and Denies palpitations Physical exam (Primary Care) Vital Signs: Last Vital Signs Pulse 87 11/01/22 16:25 BP 124/80 11/01/22 16:25 Pulse Ox 97 11/01/22 16:25 Oxygen Delivery Method Room Air 11/01/22 16:25 BMI result Body Mass Index 42.6 Tobacco/Smoking Status: Tobacco use Status Tobacco use date assessed 11/01/22 11/01/22 16:31 Patient Tobacco Use Status Never used Tobacco 11/01/22 16:31 e-Cigarette/Vaping Use Never Used 11/01/22 16:31 PHQ-9: PHQ-9 Score PHQ-9: Total score 3 11/01/22 16:31 Depression Screening Interpretation: Negative Thrive Assessment: Date of Thrive Assessment Date Thrive assessed 11/01/22 11/01/22 16:31 Currently or been in a relationship where the following occur: no concerns reported Const General: no acute distress and alert Neck Neck: Yes no lymphadenopathy and Yes supple Resp Auscultation: clear to auscultation bilaterally, no rales and no wheezes Cardio Rate: regular rate Rhythm: regular rhythm Heart sounds: no murmurs GI Palpation (GI): Soft to palpation and nontender Auscultation: normal bowel sounds Extrem General: Yes no clubbing, cyanosis or edema Results Reviewed Results Reviewed: Laboratory Tests 11/01/22 11/01/22 11/01/22 09:10 09:12 09:12 WBC 6.8 Hgb 13.6 Hct 39.8 Plt Count 228 Sodium 140 Potassium 3.9 Creatinine 0.73 Estimated GFR > 60 Fasting Glucose 102 H Calcium 9.2 AST 18 ALT 28 Triglycerides 103 Cholesterol 144 LDL Cholesterol, Calc 82 HDL Cholesterol 42 25-OH Vitamin D Total 24.1 TSH 1.39 Ur Specific [place] 1.010 Urine Protein Negative Urine Glucose (UA) Negative Urine Blood Negative Assessment and Plan Assessment & Plan (1) Pure hypercholesterolemia: Code(s): E78.00 - Pure hypercholesterolemia, unspecified Plan: Results of her labs done earlier today reviewed and discussed patient - advised that her cholesterol levels have improved significantly from previous Reinforced low cholesterol diet; states that she has completely given up on eating cheese, which was her go-to snack all the time previously Continue Atorvastatin 10 mg QD Will recheck her fasting lipids in 4 months for follow up (2) Impaired fasting glucose: Code(s): R73.01 - Impaired fasting glucose Plan: FBS was at 102 mg/dl on her labs done earlier today but her HgbA1c was normal at 5.3% when previously checked Reinforced low calorie diet/exercise as tolerated (3) Vitamin D deficiency: Code(s): E55.9 - Vitamin D deficiency, unspecified Plan: Continue Vitamin D3 2000 units QD (4) Allergic rhinitis: Code(s): J30.9 - Allergic rhinitis, unspecified Qualifiers: Allergic rhinitis trigger: unspecified Allergic rhinitis seasonality: unspecified Qualified Code(s): J30.9 - Allergic rhinitis, unspecified Plan: Continue Loratadine 10 mg QD PRN (5) Chondromalacia, patella: Code(s): M22.40 - Chondromalacia patellae, unspecified knee Qualifiers: Laterality: right Qualified Code(s): M22.41 - Chondromalacia patellae, right knee Plan: Follow up with orthopedics as scheduled States that her knees have not been bothering her too much lately (6) Obesity, morbid, BMI 40.0-49.9: Code(s): E66.01 - Morbid (severe) obesity due to excess calories Plan: Reinforced diet/exercise as tolerated/lose weight Plan Follow up in 4 months Orders: Orders Comprehensive [place]. Panel Fast 4 Months E78.00 - Pure hypercholesterolemia, unspecified Hemoglobin A1c 4 Months R73.01 - Impaired fasting glucose Lipid Panel 4 Months E78.00 - Pure hypercholesterolemia, unspecified Vitamin D 25-OH Total 4 Months E55.9 - Vitamin D deficiency, unspecified Coding Level of Care Code Est Pt Level 4 (76173) Diagnoses Pure hypercholesterolemia E78.00 Impaired fasting glucose R73.01 Vitamin D deficiency E55.9 Allergic rhinitis J30.9 Allergic rhinitis trigger: unspecified Allergic rhinitis seasonality: unspecified Chondromalacia, patella M22.41 Laterality: right Obesity, morbid, BMI 40.0-49.9 E66.01
== END 2022-11-01 16:59 | disposition home or self-care (01) ==
PROVIDERS: PCP Internal Medicine; Visit Provider Internal Medicine
DX: E78.00 Pure hypercholesterolemia, unspecified (principal); E55.9 Vitamin D deficiency, unspecified; E66.01 Morbid (severe) obesity due to excess calories; Z68.41 Body mass index [BMI] 40.0-44.9, adult; R73.01 Impaired fasting glucose; J30.9 Allergic rhinitis, unspecified; M22.41 Chondromalacia patellae, right knee
CPT/HCPCS: 99214

== ENCOUNTER 2022-12-19 12:24 | Outpatient (REF) | payer OTHER, SELFPAY | END 2022-12-19 12:25 | disposition home or self-care (01) | LOC: HO.MAMMO 12:24 | PROVIDERS: PCP Internal Medicine; Visit Provider Internal Medicine | DX: Z12.31 Encounter for screening mammogram for malignant neoplasm of breast (principal) | CPT/HCPCS: 77063; 77067 ==

== ENCOUNTER → 2022-12-19 12:30 | Outpatient (BNV) | payer OTHER, SELFPAY | PROVIDERS: PCP Internal Medicine; Visit Provider Radiology Diagnostic Radiology | DX: Z12.31 Encounter for screening mammogram for malignant neoplasm of breast (principal) | CPT/HCPCS: 77063; 77067 ==

== ENCOUNTER 2023-03-06 09:12 | Outpatient (REF) | payer OTHER, SELFPAY ==
[2023-03-06 10:49] LABS: Estimated Average Glucose 103 mg/dL; Hemoglobin A1c % 5.2 % (<6.0)
[2023-03-06 10:53] LABS: Alanine Aminotransferase 27 U/L (0-31); Alkaline Phosphatase 88 U/L (39-117); Anion Gap 11 (12-20); Aspartate Amino Transferase 16 U/L (5-31); Bilirubin Total 0.5 mg/dL (0.0-1.0); Blood Urea Nitrogen 9 mg/dL (9-16); Calcium 9.2 mg/dL (8.4-10.2); Carbon Dioxide 29 mmol/L (22-29); Chloride 105 mmol/L (96-108); Cholesterol 143 mg/dL (<200); Estimated Glomerular Filt Rate > 60; Glucose Fasting 107 mg/dL (60-99); HDL Cholesterol 41 mg/dL (>40); LDL Cholesterol Calculated 84 mg/dL (<100); Potassium 3.8 mmol/L (3.3-5.1); Sodium 141 mmol/L (135-145); Total Protein 7.6 g/dL (6.5-8.0); Triglycerides 90 mg/dL (<150)
[2023-03-06 11:16] LABS: Vitamin D 25-OH Total 18.9 ng/mL (>30)
== END 2023-03-06 09:13 | disposition home or self-care (01) ==
LOC: HO.LAB 09:12
PROVIDERS: PCP Internal Medicine; Visit Provider Internal Medicine
DX: E55.9 Vitamin D deficiency, unspecified (principal); E78.00 Pure hypercholesterolemia, unspecified; R73.01 Impaired fasting glucose
CPT/HCPCS: 36415; 80053; 80061; 82306; 83036

== ENCOUNTER 2023-03-06 15:35 | Outpatient (AMB) | payer OTHER, SELFPAY ==
[2023-03-06 15:35] VITALS: BP 122/84; PULSE 98; O2SAT 99; BMI 43.1
--- NOTE | 2023-03-06 15:35 | A.OFFPC_ITS ---
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 Accompanied by: Self / Same As Patient Allergies Penicillins [PENICILLINS] Allergy (Unknown, Verified 07/10/23 17:20) HIVES Medication List - Last Reconciled 03/06/23 by Adrian Simons MD albuterol sulfate 90 mcg/actuation 1 - 2 puffs inhalation Q6H PRN 30 days atorvastatin 10 mg PO BEDTIME 90 days ibuprofen 600 mg PO Q6H PRN loratadine 10 mg PO DAILY PRN 90 days mometasone 0.1% 1 appl topical DAILY PRN 30 days Tobacco use date assessed: 03/06/23 Dental Screening Dental Screen Date: 03/06/23 Did you have a dental visit in the last 12 months?: No Did you have a dental problem in the last 6 months where you did not have access to dental care?: No Was dental information given to patient?: Patient has dentist HPI hyperlipidemia HPI Details Patient comes in today for her follow up visit States that she feels okay She denies any headaches or dizziness Denies any chest pains, no SOB No nausea/vomiting; reports that she has been experiencing a recurrent vague pain / aching over her left upper abdominal area for the past couple of weeks No change in bowel habits noted - she denies any constipation or diarrhea/loose stools lately She had her follow up labs done earlier today - to discuss her results [facility] Medical History Hot flashes Abnormal urine odor Obesity, morbid, BMI 40.0-49.9 Morbid obesity with BMI of 40.0-44.9, adult Vitamin D deficiency GERD without esophagitis Chondromalacia patellae of right knee Pure hypercholesterolemia Obesity (BMI 30-39.9) Chondromalacia, patella Allergic rhinitis Surgical History S/P laparoscopic cholecystectomy (~06/2020) History of tubal ligation Previous section Family History Father Esophageal cancer Mother Diabetes Maternal Uncle Colon cancer Social History Household Members: Spouse Housing: House Do you presently have visiting nurse or other home services: No Alcohol intake: current Alcohol intake frequency: holidays/special occasions only Comment: sleeping Patient Tobacco Use Status: Never used Tobacco e-Cigarette/Vaping Use: Never Used Second Hand Smoke Exposure: Yes service: No Current occupational status: employed Current occupation: [email or web address] Sexual orientation: Straight/Heterosexual Gender identity: Female Cognitive needs: No Hearing needs: No Vision needs: Yes Questionnaire PHQ-9 Over the last 2 weeks, how often have you been bothered by any of the following problems? 1. Little interest or pleasure in doing things: not at all 2. Feeling down, depressed, or hopeless: not at all 3. Trouble falling or staying asleep, or sleeping too much: nearly every day 4. Feeling tired or having little energy: not at all 5. Poor appetite or overeating: not at all 6. Feeling bad about yourself - or that you are a failure or have let yourself or your family down: not at all 7. Trouble concentrating on things, such as reading the newspaper or watching television: not at all 8. Moving or speaking so slowly that other people could have noticed. Or the opposite - being so fidgety or restless that you have been moving around a lot more than usual: not at all 9. Thoughts that you would be better off or of hurting yourself in some way: not at all Total score: 3 Depression Screening Interpretation: Negative Depression Screening Done: Yes 50994 - PHQ-9 Billing: Yes Source: Developed by Drs. Cesario Vasquez, Leila Mcdowell, Julio Michel and colleagues, with an educational mónica from [employer]. Thrive Questionnaire Date Thrive assessed: 03/06/23 I am a: Patient What is your living situation today?: I have a steady place to live Within the past 12 months, did the food you bought not last and you didn't have the money to get more?: Never true Within the past 12 months, did you worry whether your food would run out before you got money to buy more?: Never true Do you have trouble paying for medicines?: No Do you have trouble getting transportation to medical appointments?: No Do you have trouble paying your heating and electricity bill?: No Do you have trouble taking care of your child, family member or friend?: No Do you have trouble with day-to-day activities such as bathing, preparing meals, shopping, managing finances, etc.?: No Are you currently unemployed and looking for a job?: No Are you interested in more education?: No Please select the resources that you would like help with: None Currently or been in a relationship where the following occur: no concerns reported AUDIT C Alcohol Use Questionnaire (AUDIT-C) 1. How often do you have a drink containing alcohol?: Monthly or less 2. How many drinks containing alcohol do you have on a typical day when you are drinking?: 1 or 2 3. How often do you have six or more drinks on one occasion?: Never Total Score: 1 Score Reviewed/Action Taken: Yes DEVONTE-7 AMB Questionnaire DEVONTE-7 Date DEVONTE - 7 assessed: 03/06/23 Feeling nervous, anxious, or on edge: 0 = Not at all Not being able to stop or control worryin = Not at all Worrying too much about different things: 0 = Not at all Trouble relaxin = Several days Being so restless that it is hard to sit still: 0 = Not at all Becoming easily annoyed or irritable: 0 = Not at all Feeling afraid as if something awful might happen: 0 = Not at all Total DEVONTE-7 score (0-4 normal; 5-9 mild; 10-14 moderate; 15-21 severe): 1 Source: Developed by Drs. Cesario Vasquez, Leila Mcdowell, Julio Michel and colleagues, with an educational mónica from [employer]. Review of Systems Const Denies chills, Denies fatigue, Denies fever(s) and Denies headache(s) ENT Denies dysphagia, Denies dizziness, Denies otalgia, Denies headache(s), Denies neck pain, Denies odynophagia and Denies sore throat Card Denies chest pain, Denies palpitations and Denies dyspnea Resp Denies cough, Denies dyspnea and Denies wheezing GI Reports abdominal pain (on and off over the LUQ of her abdomen lately), Denies belching, Denies bloating, Denies constipation, Denies dysphagia, Denies heartburn, Denies diarrhea, Denies nausea, Denies odynophagia and Denies vomiting Denies hematuria, Denies difficulty voiding, Denies nocturia, Denies dysuria and Denies urinary urgency Musc Denies back pain, Denies arthralgias and Denies neck pain Skin/Breast Denies rash Neuro Denies dizziness and Denies headache(s) Psych Denies anxiety Endo Denies fatigue and Denies palpitations Aller/Immun Denies wheezing Physical exam (Primary Care) Vital Signs: Last Vital Signs Pulse 98 03/06/23 15:35 BP 122/84 03/06/23 15:35 Pulse Ox 99 03/06/23 15:35 Oxygen Delivery Method Room Air 03/06/23 15:35 BMI result Body Mass Index 43.1 Tobacco/Smoking Status: Tobacco use Status Tobacco use date assessed 03/06/23 03/06/23 15:37 Patient Tobacco Use Status Never used Tobacco 03/06/23 15:37 e-Cigarette/Vaping Use Never Used 03/06/23 15:37 PHQ-9: PHQ-9 Score PHQ-9: Total score 3 03/06/23 16:30 Depression Screening Interpretation: Negative Thrive Assessment: Date of Thrive Assessment Date Thrive assessed 03/06/23 03/06/23 15:37 Currently or been in a relationship where the following occur: no concerns reported Const General: no acute distress and alert HENMT Ears: TM's normal bilaterally and EAC's normal Throat: Yes posterior oropharynx normal and Yes tonsils normal Neck Neck: Yes no lymphadenopathy and Yes supple Thyroid: Thyroid normal Resp Auscultation: clear to auscultation bilaterally, no rales and no wheezes Cardio Rate: regular rate Rhythm: regular rhythm Heart sounds: no murmurs GI Palpation (GI): Soft to palpation, nontender (no tenderness elicited on exam over the LUQ of her abdomen), not rigid and No Rebound tenderness present Auscultation: normal bowel sounds General: Yes no CVA tenderness Back/Spine/Pelvis Back: no CVA tenderness Skin Rashes: no rashes Extrem General: Yes no clubbing, cyanosis or edema Results Reviewed Results Reviewed: Laboratory Tests 03/06/23 09:38 Sodium 141 Potassium 3.8 Creatinine 0.73 Estimated GFR > 60 Fasting Glucose 107 H Hemoglobin A1c % 5.2 Calcium 9.2 AST 16 ALT 27 Triglycerides 90 Cholesterol 143 LDL Cholesterol, Calc 84 HDL Cholesterol 41 25-OH Vitamin D Total 18.9 L Assessment and Plan Assessment & Plan (1) Pure hypercholesterolemia: Code(s): E78.00 - Pure hypercholesterolemia, unspecified Plan: Results of her labs done earlier today reviewed and discussed patient - advised that her cholesterol levels have remained well-controlled on her recent labs Reinforced low cholesterol diet Continue Atorvastatin 10 mg QD Will recheck her labs and fasting lipids in 4 months for follow up (2) Impaired fasting glucose: Code(s): R73.01 - Impaired fasting glucose Plan: FBS was at 107 mg/dl on her labs done earlier today but her HgbA1c was normal at 5.2% Reinforced low calorie diet/exercise as tolerated (3) Vitamin D deficiency: Code(s): E55.9 - Vitamin D deficiency, unspecified Plan: She is advised that her Vitamin D level has dropped off from previous and she is now low on her Vitamin D Will start her again on Vitamin D3 2000 units QD (4) Left upper quadrant abdominal pain: Code(s): R10.12 - Left upper quadrant pain Plan: Will send patient for abdominal US for further evaluation (5) Allergic rhinitis: Code(s): J30.9 - Allergic rhinitis, unspecified Qualifiers: Allergic rhinitis seasonality: unspecified Allergic rhinitis trigger: unspecified Qualified Code(s): J30.9 - Allergic rhinitis, unspecified Plan: Continue Loratadine 10 mg QD PRN (6) Chondromalacia, patella: Code(s): M22.40 - Chondromalacia patellae, unspecified knee Qualifiers: Laterality: right Qualified Code(s): M22.41 - Chondromalacia patellae, right knee Plan: Follow up with orthopedics as scheduled States that her knees have not been bothering her too much lately (7) Obesity, morbid, BMI 40.0-49.9: Code(s): E66.01 - Morbid (severe) obesity due to excess calories Plan: Reinforced diet/exercise as tolerated/lose weight Plan Follow up in 4 months Orders: Orders US abdomen complete 03/06/23 R10.12 - Left upper quadrant pain Hemoglobin A1c 4 Months R73.01 - Impaired fasting glucose Complete Blood Count Auto Diff 4 Months I10 - Essential (primary) hypertension Comprehensive [place]. Panel Fast 4 Months E78.00 - Pure hypercholesterolemia, unspecified Lipid Panel 4 Months E78.00 - Pure hypercholesterolemia, unspecified TSH reflex Free T4 4 Months E78.00 - Pure hypercholesterolemia, unspecified UA CC w/rflx Micro + Cult 4 Months R30.0 - Dysuria Vitamin D 25-OH Total 4 Months E55.9 - Vitamin D deficiency, unspecified Medications: New cholecalciferol (vitamin D3) 50 mcg PO DAILY 90 caps 3RF 90 days E55.9 - Vitamin D deficiency, unspecified Coding Level of Care Code Est Pt Level 4 (84300) Diagnoses Pure hypercholesterolemia E78.00 Impaired fasting glucose R73.01 Vitamin D deficiency E55.9 Left upper quadrant abdominal pain R10.12 Allergic rhinitis, unspecified seasonality, unspecified trigger J30.9 Allergic rhinitis seasonality: unspecified Allergic rhinitis trigger: unspecified Chondromalacia of right patella M22.41 Laterality: right Obesity, morbid, BMI 40.0-49.9 E66.01
== END 2023-03-06 16:38 | disposition home or self-care (01) ==
PROVIDERS: PCP Internal Medicine; Visit Provider Internal Medicine
DX: E78.00 Pure hypercholesterolemia, unspecified (principal); E66.01 Morbid (severe) obesity due to excess calories; Z68.41 Body mass index [BMI] 40.0-44.9, adult; R73.01 Impaired fasting glucose; E55.9 Vitamin D deficiency, unspecified; R10.12 Left upper quadrant pain; J30.9 Allergic rhinitis, unspecified; M22.41 Chondromalacia patellae, right knee
CPT/HCPCS: 99499

== ENCOUNTER 2023-04-06 08:26 | Outpatient (REF) | payer OTHER, SELFPAY ==
--- NOTE | ~2023-04-06 | US_ITS ---
EXAMINATION: US ABDOMEN COMPLETE CLINICAL INFORMATION: Left upper quadrant pain. COMPARISON: MRI abdomen 06/08/2020. Ultrasound abdomen limited 06/07/2020. CT of abdomen and pelvis 03/31/2020. TECHNIQUE: Real-time imaging of the abdominal viscera. FINDINGS: PANCREAS: The head and body appear normal. The tail is obscured by bowel gas. ABDOMINAL AORTA: The proximal, mid, and distal segments are normal in caliber. INFERIOR VENA CAVA: Visualized portions are normal. LIVER: Normal. The liver contour is normal. Parenchymal echogenicity is normal. No focal hepatic lesion. There is no intrahepatic biliary duct dilatation seen. GALLBLADDER: Surgically absent. COMMON BILE DUCT: Normal in caliber measuring 0.5 cm in diameter. RIGHT KIDNEY: Normal. No hydronephrosis. No renal calculi or focal parenchymal lesions. The kidney measures 11.4 cm in maximum dimension. LEFT KIDNEY: Dilated calyces suggesting mild hydronephrosis. No renal calculi or focal parenchymal lesions. The kidney measures 12.1 cm in maximum dimension. SPLEEN: Normal. The spleen measures 10.4 cm in maximum dimension. FREE FLUID: None. US/US abdomen complete IMPRESSION: Question mild left hydronephrosis of uncertain etiology. Consider further evaluation with CT urogram.
== END 2023-04-06 08:27 | disposition home or self-care (01) ==
LOC: HO.US 08:26
PROVIDERS: PCP Internal Medicine; Visit Provider Internal Medicine
DX: R10.12 Left upper quadrant pain (principal)
CPT/HCPCS: 76700

== ENCOUNTER 2023-07-10 09:08 | Outpatient (REF) | payer OTHER, SELFPAY ==
[2023-07-10 09:34] LABS: MANUAL DIFF FLAG NO
[2023-07-10 10:08] LABS: Basophils Percent Auto 0.2 % (0-2); Eosinophils Absolute Auto 0.2 X10*3/uL (0.0-0.4); Eosinophils Percent Auto 2.6 % (0-4); Hematocrit 40.6 % (37.0-47.0); Hemoglobin 13.2 g/dl (12.0-16.0); Imm Gran Abs Auto 0.01 X10*3/uL (0.00-0.03); Imm Gran Pct Auto 0.2 % (0.0-0.4); Lymphocytes Absolute Auto 1.2 X10*3/uL (1.2-4.9); Lymphocytes Percent Auto 21.7 % (20-40); Mean Corpuscular HGB Conc 32.5 g/dl (31.0-35.0); Mean Corpuscular Hemoglobin 27.3 pg (27.0-33.0); Mean Corpuscular Volume 84.1 fL (80.0-98.0); Mean Platelet Volume 11.5 fL (9.4-12.3); Monocytes Absolute Auto 0.5 X10*3/uL (0.1-1.2); Monocytes Percent Auto 9.3 % (2-11); Neutrophils Absolute Auto 3.8 x10*3/uL (2.0-8.3); Platelet Count 225 X10*3/uL (160-400); Red Blood Count 4.83 X10*6/uL (4.20-5.50); Red Cell Distribution Width 12.7 % (11.0-16.0); White Blood Count 5.7 X10*3/uL (4.8-10.8)
[2023-07-10 10:16] LABS: Appearance Urine Clear; Color Urine Yellow; Glucose Urine UA Negative (Negative); Leukocyte Esterase Urine Negative (Negative); Nitrite Urine Negative (Negative); PH 5.5 (5.0-9.0); Urine Blood Negative (Negative); Urine Ketones Negative (Negative); Urine Protein Negative (Neg-Trace)
[2023-07-10 10:28] LABS: Estimated Average Glucose 100 mg/dL; Hemoglobin A1c % 5.1 % (<6.0)
[2023-07-10 11:14] LABS: Alanine Aminotransferase 29 U/L (0-31); Albumin Level 3.9 g/dL (3.5-5.0); Alkaline Phosphatase 84 U/L (39-117); Anion Gap 12 (12-20); Aspartate Amino Transferase 20 U/L (5-31); Bilirubin Total 0.4 mg/dL (0.0-1.0); Blood Urea Nitrogen 9 mg/dL (9-16); Carbon Dioxide 25 mmol/L (22-29); Chloride 106 mmol/L (96-108); Cholesterol 193 mg/dL (<200); Estimated Glomerular Filt Rate > 60; Glucose Fasting 109 mg/dL (60-99); HDL Cholesterol 40 mg/dL (>40); LDL Cholesterol Calculated 125 mg/dL (<100); Potassium 4.1 mmol/L (3.3-5.1); Sodium 139 mmol/L (135-145); TSH reflex Free T4 1.03 uIU/mL (0.32-4.0); Total Protein 7.6 g/dL (6.5-8.0); Triglycerides 141 mg/dL (<150); Vitamin D 25-OH Total 19.7 ng/mL (>30)
== END 2023-07-10 09:09 | disposition home or self-care (01) ==
LOC: HO.LAB 09:08
PROVIDERS: PCP Internal Medicine; Visit Provider Internal Medicine
DX: R30.0 Dysuria (principal); E55.9 Vitamin D deficiency, unspecified; R73.01 Impaired fasting glucose; I10 Essential (primary) hypertension; E78.00 Pure hypercholesterolemia, unspecified
CPT/HCPCS: 36415; 80053; 80061; 81003; 82306; 83036; 84443; 85025

== ENCOUNTER 2023-07-10 16:49 | Outpatient (AMB) | payer OTHER, SELFPAY ==
--- NOTE | 2023-07-10 16:52 | A.OFFPC_ITS ---
Vital Signs 07/10/23 16:54 Height 5 ft 1 in Weight 229 lb 8 oz BMI 43.4 BP 110/64 Blood Pressure Location Lt brachial Position Sitting Pulse 81 Pulse Source Pulse Oximeter Pulse Oximetry (%) 99 Oxygen Delivery Method Room Air Intake Visit Reasons: 4 month f/u Intake Note: Patient is here to follow up on IFG, Obesity. Foot Tender Required: No Wearing Apparel Shaker: Not Required per policy Accompanied by: Self / Same As Patient Allergies Penicillins [PENICILLINS] Allergy (Unknown, Verified 07/10/23 17:20) HIVES Medication List - Last Reconciled 07/10/23 by Adrian Simons MD albuterol sulfate 90 mcg/actuation 1 - 2 puffs inhalation Q6H PRN 30 days atorvastatin 10 mg PO BEDTIME 90 days cholecalciferol (vitamin D3) 50 mcg PO DAILY 90 days ibuprofen 600 mg PO Q6H PRN loratadine 10 mg PO DAILY PRN 90 days mometasone 0.1% 1 appl topical DAILY PRN 30 days Tobacco use date assessed: 07/10/23 Dental Screening Dental Screen Date: 07/10/23 Did you have a dental visit in the last 12 months?: No Did you have a dental problem in the last 6 months where you did not have access to dental care?: No Was dental information given to patient?: No HPI 4 month f/u HPI Details Patient comes in today for her follow up visit States that she feels okay She denies any headaches or dizziness Denies any chest pains, no SOB No nausea/vomiting, no abdominal pain No change in bowel habits noted Needs a couple of her Rx refilled today Had her follow up labs done earlier this morning - to discuss her results FOR[facility]LY [facility], [facility] Medical History Hot flashes Abnormal urine odor Obesity, morbid, BMI 40.0-49.9 Morbid obesity with BMI of 40.0-44.9, adult Vitamin D deficiency GERD without esophagitis Chondromalacia patellae of right knee Pure hypercholesterolemia Obesity (BMI 30-39.9) Chondromalacia, patella Allergic rhinitis Surgical History S/P laparoscopic cholecystectomy (~06/2020) History of tubal ligation Previous section Family History Father Esophageal cancer Mother Diabetes Maternal Uncle Colon cancer Social History Household Members: Spouse Housing: House Do you presently have visiting nurse or other home services: No Alcohol intake: current Alcohol intake frequency: holidays/special occasions only Comment: sleeping Patient Tobacco Use Status: Never used Tobacco e-Cigarette/Vaping Use: Never Used Second Hand Smoke Exposure: Yes service: No Current occupational status: employed Current occupation: [employer] Sexual orientation: Straight/Heterosexual Gender identity: Female Cognitive needs: No Hearing needs: No Vision needs: Yes Questionnaire PHQ-9 Over the last 2 weeks, how often have you been bothered by any of the following problems? 1. Little interest or pleasure in doing things: not at all 2. Feeling down, depressed, or hopeless: not at all 3. Trouble falling or staying asleep, or sleeping too much: not at all 4. Feeling tired or having little energy: not at all 5. Poor appetite or overeating: not at all 6. Feeling bad about yourself - or that you are a failure or have let yourself or your family down: not at all 7. Trouble concentrating on things, such as reading the newspaper or watching television: not at all 8. Moving or speaking so slowly that other people could have noticed. Or the opposite - being so fidgety or restless that you have been moving around a lot more than usual: not at all 9. Thoughts that you would be better off or of hurting yourself in some way: not at all Total score: 0 Depression Screening Interpretation: Negative Depression Screening Done: Yes 17975 - PHQ-9 Billing: Yes Source: Developed by Drs. Cesario Vasquez, Leila Mcdowell, Julio Michel and colleagues, with an educational mónica from [employer]. Thrive Questionnaire Date Thrive assessed: 07/10/23 I am a: Patient What is your living situation today?: I have a steady place to live Within the past 12 months, did the food you bought not last and you didn't have the money to get more?: Never true Within the past 12 months, did you worry whether your food would run out before you got money to buy more?: Never true Do you have trouble paying for medicines?: No Do you have trouble getting transportation to medical appointments?: No Do you have trouble paying your heating and electricity bill?: No Do you have trouble taking care of your child, family member or friend?: No Do you have trouble with day-to-day activities such as bathing, preparing meals, shopping, managing finances, etc.?: No Are you currently unemployed and looking for a job?: No Are you interested in more education?: No Currently or been in a relationship where the following occur: no concerns reported THRIVE Score: 0 AUDIT C Alcohol Use Questionnaire (AUDIT-C) 1. How often do you have a drink containing alcohol?: Monthly or less 2. How many drinks containing alcohol do you have on a typical day when you are drinking?: 1 or 2 Total Score: 1 Score Reviewed/Action Taken: Yes DEVONTE-7 AMB Questionnaire DEVONTE-7 Date DEVONTE - 7 assessed: 07/10/23 Feeling nervous, anxious, or on edge: 3 = Nearly every day (at night time) Not being able to stop or control worryin = Not at all Worrying too much about different things: 0 = Not at all Trouble relaxin = Nearly every day (at night) Being so restless that it is hard to sit still: 1 = Several days Becoming easily annoyed or irritable: 0 = Not at all Feeling afraid as if something awful might happen: 1 = Several days Total DEVONTE-7 score (0-4 normal; 5-9 mild; 10-14 moderate; 15-21 severe): 8 Source: Developed by Drs. Cesario Vasquez, Leila Mcdowell, Julio Michel and colleagues, with an educational mónica from [employer]. Review of Systems Const Denies chills, Denies fatigue, Denies fever(s) and Denies headache(s) ENT Denies dysphagia, Denies dizziness, Denies headache(s), Denies odynophagia and Denies sore throat Card Denies chest pain, Denies palpitations and Denies dyspnea Resp Denies cough and Denies dyspnea GI Denies abdominal pain, Denies constipation, Denies dysphagia, Denies heartburn, Denies diarrhea, Denies nausea, Denies odynophagia and Denies vomiting Denies difficulty voiding, Denies nocturia, Denies dysuria and Denies urinary urgency Musc Denies back pain and Denies arthralgias Skin/Breast Denies rash Neuro Denies dizziness and Denies headache(s) Endo Denies fatigue and Denies palpitations Physical exam (Primary Care) Vital Signs: Last Vital Signs Pulse 81 07/10/23 16:54 BP 110/64 07/10/23 16:54 Pulse Ox 99 07/10/23 16:54 Oxygen Delivery Method Room Air 07/10/23 16:54 BMI result Body Mass Index 43.4 Tobacco/Smoking Status: Tobacco use Status Tobacco use date assessed 07/10/23 07/10/23 17:00 Patient Tobacco Use Status Never used Tobacco 07/10/23 17:00 e-Cigarette/Vaping Use Never Used 07/10/23 17:00 PHQ-9: PHQ-9 Score PHQ-9: Total score 0 07/10/23 17:20 Depression Screening Interpretation: Negative Thrive Assessment: Date of Thrive Assessment Date Thrive assessed 07/10/23 07/10/23 17:00 Currently or been in a relationship where the following occur: no concerns reported Const General: no acute distress and alert HENMT Ears: TM's normal bilaterally and EAC's normal Throat: Yes posterior oropharynx normal and Yes tonsils normal Neck Neck: Yes no lymphadenopathy and Yes supple Thyroid: Thyroid normal Resp Auscultation: clear to auscultation bilaterally, no rales and no wheezes Cardio Rate: regular rate Rhythm: regular rhythm Heart sounds: no murmurs GI Palpation (GI): Soft to palpation and nontender Auscultation: normal bowel sounds General: Yes no CVA tenderness Back/Spine/Pelvis Back: no CVA tenderness Skin Rashes: no rashes Extrem General: Yes no clubbing, cyanosis or edema Results Reviewed Results Reviewed: Laboratory Tests 07/10/23 07/10/23 09:32 09:39 WBC 5.7 Hgb 13.2 Hct 40.6 Plt Count 225 Sodium 139 Potassium 4.1 Creatinine 0.66 Estimated GFR > 60 Fasting Glucose 109 H Hemoglobin A1c % 5.1 Calcium 9.0 AST 20 ALT 29 Triglycerides 141 Cholesterol 193 LDL Cholesterol, Calc 125 H HDL Cholesterol 40 L 25-OH Vitamin D Total 19.7 L TSH 1.03 Ur Specific Dafter 1.010 Urine Protein Negative Urine Glucose (UA) Negative Urine Blood Negative Urine Nitrite Negative Ur Leukocyte Esterase Negative Assessment and Plan Assessment & Plan (1) Pure hypercholesterolemia: Code(s): E78.00 - Pure hypercholesterolemia, unspecified Plan: Results of her labs done earlier today reviewed and discussed patient - advised that her cholesterol levels have increased significantly from previous despite her current Rx Reinforced low cholesterol diet - states that she just got back from her vacation not too long ago and admitted to poor compliance with her diet while she was on vacation Continue Atorvastatin 10 mg QD for now but advised that we will need to increase her dose next time if she cannot get her cholesterol levels back down over the next few months Will recheck her fasting lipids and labs in 4 months for follow up (2) Impaired fasting glucose: Code(s): R73.01 - Impaired fasting glucose Plan: FBS was at 109 mg/dl on her labs done earlier today but her HgbA1c remained normal at 5.1% (was at 5.3% previously) Reinforced low calorie diet/exercise as tolerated (3) Vitamin D deficiency: Code(s): E55.9 - Vitamin D deficiency, unspecified Plan: Continue Vitamin D3 2000 units QD Admits that she has been forgetting to take this often lately - have advised that her Vitamin D level is still low and she should try taking her Vitamin D regularly (4) Allergic rhinitis: Code(s): J30.9 - Allergic rhinitis, unspecified Qualifiers: Allergic rhinitis seasonality: unspecified Allergic rhinitis trigger: unspecified Qualified Code(s): J30.9 - Allergic rhinitis, unspecified Plan: Continue Loratadine 10 mg QD PRN (5) Chondromalacia, patella: Code(s): M22.40 - Chondromalacia patellae, unspecified knee Qualifiers: Laterality: right Qualified Code(s): M22.41 - Chondromalacia patellae, right knee Plan: Follow up with orthopedics as scheduled States that her knees have not been bothering her too much lately (6) Obesity, morbid, BMI 40.0-49.9: Code(s): E66.01 - Morbid (severe) obesity due to excess calories Plan: Reinforced diet/exercise as tolerated/lose weight Plan Follow up in 4 months Orders: Orders Comprehensive [place]. Panel Fast 4 Months E78.00 - Pure hypercholesterolemia, unspecified Lipid Panel 4 Months E78.00 - Pure hypercholesterolemia, unspecified Vitamin D 25-OH Total 4 Months E55.9 - Vitamin D deficiency, unspecified Medications: Refilled loratadine 10 mg PO DAILY 90 days PRN 90 tabs 1RF allergy symptoms atorvastatin 10 mg PO BEDTIME 90 days 90 tabs 1RF Coding Level of Care Code Est Pt Level 4 (12741) Diagnoses Pure hypercholesterolemia E78.00 Impaired fasting glucose R73.01 Vitamin D deficiency E55.9 Allergic rhinitis, unspecified seasonality, unspecified trigger J30.9 Allergic rhinitis seasonality: unspecified Allergic rhinitis trigger: unspecified Chondromalacia of right patella M22.41 Laterality: right Obesity, morbid, BMI 40.0-49.9 E66.01
[2023-07-10 16:54] VITALS: BP 110/64; PULSE 81; O2SAT 99; BMI 43.4
== END 2023-07-10 17:34 | disposition home or self-care (01) ==
PROVIDERS: PCP Internal Medicine; Visit Provider Internal Medicine
DX: E78.00 Pure hypercholesterolemia, unspecified (principal); E66.01 Morbid (severe) obesity due to excess calories; Z68.41 Body mass index [BMI] 40.0-44.9, adult; R73.01 Impaired fasting glucose; E55.9 Vitamin D deficiency, unspecified; J30.9 Allergic rhinitis, unspecified; M22.41 Chondromalacia patellae, right knee
CPT/HCPCS: 99214

== ENCOUNTER 2023-08-28 08:12 | Outpatient (AMB) | payer OTHER, SELFPAY ==
--- NOTE | 2023-08-28 08:17 | A.OFFVIS_ITS ---
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 Doing well with no concerns. She tries to eat healthy and stays active with exercise. History of vitamin-D deficiency, admits she does forget doses at times. Regular monthly menses x5-6d. She reports some hot flashes. Currently is sexually active same long-term monogamous partner. She feels safe at home. She denies vaginal itching and irritation. STI screening offered; she declined. Denies family history of breast, ovarian or colon cancer. Last pap smear 2021, negative. Mammogram: 2022, BI-RADS 1. Colonoscopy planned this year. [facility] Medical History Hot flashes Abnormal urine odor Obesity, morbid, BMI 40.0-49.9 Morbid obesity with BMI of 40.0-44.9, adult Vitamin D deficiency GERD without esophagitis Chondromalacia patellae of right knee Pure hypercholesterolemia Obesity (BMI 30-39.9) Chondromalacia, patella Allergic rhinitis Surgical History S/P laparoscopic cholecystectomy (~06/2020) History of tubal ligation Previous section Family History Father Esophageal cancer Mother Diabetes Maternal Uncle Colon cancer Social History Household Members: Spouse Housing: House Do you presently have visiting nurse or other home services: No Alcohol intake: current Alcohol intake frequency: holidays/special occasions only Comment: sleeping Patient Tobacco Use Status: Never used Tobacco e-Cigarette/Vaping Use: Never Used Second Hand Smoke Exposure: Yes service: No Current occupational status: employed Current occupation: [employer] Sexual orientation: Straight/Heterosexual Gender identity: Female Cognitive needs: No Hearing needs: No Vision needs: Yes Female Reproductive History Menstrual Date of last menstrual period: 08/22/23 Review of Systems Const All systems reviewed & are unremarkable except as noted in HPI and below Reports as per HPI Eyes Reports no additional complaints ENT Reports no additional complaints Card Reports no additional complaints Resp Reports no additional complaints GI Reports as per HPI and Reports no additional complaints Reports as per HPI Musc Reports no additional complaints Skin/Breast Reports as per HPI Neuro Reports no additional complaints Psych Reports no additional complaints Endo Reports no additional complaints Derrell/Lymph Reports no additional complaints Aller/Immun Reports no additional complaints Physical Exam Vital Signs: Last Vital Signs BP 124/68 08/28/23 08:20 BMI result Body Mass Index 43.5 Const General: cooperative, healthy appearing, no acute distress, well developed and alert Orientation/consciousness: patient oriented x3 HEENT Head: Yes normal to inspection Eyes General: appearance normal, both eyes and all related structures Neck Neck: Yes normal visual inspection Thyroid: Thyroid normal Chest Chest palpation & inspection: normal inspection of the chest and other (no p uckering, dimpling, peau de orange, retraction, discharge, masses) Breast/axilla inspection: normal inspection of the breasts Breast/axilla palpation: normal palpation of the breasts Resp Effort & Inspection: normal respiratory effort GI Inspection: Yes normal to inspection and Yes obesity Palpation (GI): Soft to palpation Rectal Exam - Female: deferred General: Yes bladder normal to palpation External Female Exam: normal external appearance and normal appearance of the urethra Speculum Exam - Vagina: normal appearance of the vagina, normal palpation, normal vaginal discharge and vaginal bleeding (Brown small amount) Speculum Exam - Cervix: normal appearance of the cervix and normal palpation Bimanual exam- vagina & uterus: normal bimanual exam (Limited with body habitus), normal palpation, uterine size normal, bladder normal to palpation, normal palpation and non-tender Bimanual Exam- Adnexa, other: no masses OB/external & speculum: vaginal bleeding (Brown small amount) Skin General skin exam: no rashes or lesions noted Rashes: no rashes Neuro General: patient oriented x3 Cognition (Neuro): normal cognition Extrem General: Yes normal to inspection Psych Attitude: cooperative Thought process: Normal thought process present Assessment & Plan Assessment & Plan (1) Encounter for well woman exam with routine gynecological exam: Code(s): Z01.419 - Encounter for gynecological examination (general) (routine) without abnormal findings Category: Medical Plan: Discussed: Current recommendations for pap smears per ASCCP guidelines. Breast awareness and periodic breast exams. Maintain a healthy lifestyle including a well balanced diet and routine exercise. Continue with the vitamin-D supplements daily. Menopause verses perimenopause. Menopause is definitive of 1 year of no menses or 12 months in succession. Report any abnormal uterine bleeding in example prolonged episodes, or short intervals less than 21 days. Mammogram yearly. Colonoscopy >45, or at risk sooner. Patient verbalizes understanding and agrees to the plan of care. She was given opportunity to ask questions and all questions were answered to the best of my ability. RTO in one year for annual lean consultant examination. This note is constructed using voice recognition software. While every effort has been made to ensure accuracy, manager grocery errors may have been included. Coding Level of Care Code Est Pt Prev Care 40-64y(60846) Diagnoses Encounter for well woman exam with routine gynecological exam Z01.419
[2023-08-28 08:20] VITALS: BP 124/68; BMI 43.5
== END 2023-08-28 08:52 | disposition home or self-care (01) ==
PROVIDERS: PCP Internal Medicine; Visit Provider Advanced Practice Midwife
DX: Z01.419 Encounter for gynecological examination (general) (routine) without abnormal findings (principal)
CPT/HCPCS: 99396

== ENCOUNTER → 2023-08-28 08:12 | Outpatient (BNVA) | payer OTHER, SELFPAY | PROVIDERS: Visit Provider Advanced Practice Midwife ==

== ENCOUNTER 2023-11-09 08:57 | Outpatient (REF) | payer OTHER, SELFPAY ==
[2023-11-09 10:50] LABS: Alanine Aminotransferase 31 U/L (0-31); Alkaline Phosphatase 85 U/L (39-117); Anion Gap 11 (12-20); Aspartate Amino Transferase 16 U/L (5-31); Bilirubin Total 0.4 mg/dL (0.0-1.0); Blood Urea Nitrogen 12 mg/dL (9-16); Calcium 9.9 mg/dL (8.4-10.2); Carbon Dioxide 26 mmol/L (22-29); Chloride 107 mmol/L (96-108); Cholesterol 146 mg/dL (<200); Estimated Glomerular Filt Rate > 60; Glucose Fasting 101 mg/dL (60-99); HDL Cholesterol 40 mg/dL (>40); LDL Cholesterol Calculated 88 mg/dL (<100); Potassium 4.4 mmol/L (3.3-5.1); Sodium 140 mmol/L (135-145); Total Protein 7.6 g/dL (6.5-8.0); Triglycerides 90 mg/dL (<150)
[2023-11-09 10:52] LABS: Vitamin D 25-OH Total 33.8 ng/mL (>30)
== END 2023-11-09 08:58 | disposition home or self-care (01) ==
LOC: HO.LAB 08:57
PROVIDERS: PCP Internal Medicine; Visit Provider Internal Medicine
DX: E55.9 Vitamin D deficiency, unspecified (principal); E78.00 Pure hypercholesterolemia, unspecified
CPT/HCPCS: 36415; 80053; 80061; 82306

== ENCOUNTER 2023-11-12 17:00 | Outpatient (AMB) | payer OTHER, SELFPAY ==
--- NOTE | 2023-11-12 17:04 | A.OFFPC_ITS ---
Vital Signs 11/12/23 17:14 Height 5 ft 1 in Weight 228 lb BMI 43.1 BP 100/72 Blood Pressure Location Lt brachial Position Sitting Pulse 72 Pulse Source Pulse Oximeter Pulse Oximetry (%) 97 Oxygen Delivery Method Room Air Intake Visit Reasons: hyperlipidemia Healthcare Administration Internship Required: No Accompanied by: Self / Same As Patient Allergies Penicillins [PENICILLINS] Allergy (Unknown, Verified 11/12/23 17:35) HIVES Medication List - Last Reconciled 11/12/23 by Adrian Simons MD albuterol sulfate 90 mcg/actuation 1 - 2 puffs inhalation Q6H PRN 30 days atorvastatin 10 mg PO BEDTIME 90 days cholecalciferol (vitamin D3) 50 mcg PO DAILY 90 days ibuprofen 600 mg PO Q6H PRN loratadine 10 mg PO DAILY PRN 90 days mometasone 0.1% 1 appl topical DAILY PRN 30 days Tobacco use date assessed: 07/10/23 Dental Screening Dental Screen Date: 07/10/23 HPI hyperlipidemia HPI Details Patient comes in today for her follow up visit States that she feels okay She denies any headaches or dizziness Denies any chest pains, no SOB No nausea/vomiting, no abdominal pain No change in bowel habits noted She had her follow up labs done a few days ago - to discuss her results [facility] Medical History (Updated 11/12/23 @ 18:57 by Adrian Simons MD) Morbid obesity with BMI of 40.0-44.9, adult Vitamin D deficiency GERD without esophagitis Chondromalacia patellae of right knee Pure hypercholesterolemia Chondromalacia, patella Allergic rhinitis Surgical History S/P laparoscopic cholecystectomy (~06/2020) History of tubal ligation Previous section Family History Father Esophageal cancer Mother Diabetes Maternal Uncle Colon cancer Social History Household Members: Spouse Housing: House Do you presently have visiting nurse or other home services: No Alcohol intake: current Alcohol intake frequency: holidays/special occasions only Comment: sleeping Patient Tobacco Use Status: Never used Tobacco e-Cigarette/Vaping Use: Never Used Second Hand Smoke Exposure: Yes service: No Current occupational status: employed Current occupation: [employer] Sexual orientation: Straight/Heterosexual Gender identity: Female Cognitive needs: No Hearing needs: No Vision needs: Yes Questionnaire Thrive Questionnaire Date Thrive assessed: 07/10/23 DEVONTE-7 AMB Questionnaire DEVONTE-7 Date DEVONTE - 7 assessed: 07/10/23 Source: Developed by Drs. Cesario Vasquez, Leila Mcdowell, Julio Michel and colleagues, with an educational mónica from [employer]. Review of Systems Const Denies chills, Denies fatigue, Denies fever(s) and Denies headache(s) ENT Denies dysphagia, Denies dizziness, Denies otalgia, Denies headache(s), Denies neck pain, Denies odynophagia and Denies sore throat Card Denies chest pain, Denies palpitations and Denies dyspnea Resp Denies cough and Denies dyspnea GI Denies abdominal pain, Denies constipation, Denies dysphagia, Denies heartburn, Denies diarrhea, Denies nausea, Denies odynophagia and Denies vomiting Denies difficulty voiding, Denies nocturia, Denies dysuria and Denies urinary urgency Musc Denies back pain, Denies arthralgias and Denies neck pain Skin/Breast Denies rash Neuro Denies dizziness and Denies headache(s) Endo Denies fatigue and Denies palpitations Physical exam (Primary Care) Vital Signs: Last Vital Signs Pulse 72 11/12/23 17:14 BP 100/72 11/12/23 17:14 Pulse Ox 97 11/12/23 17:14 Oxygen Delivery Method Room Air 11/12/23 17:14 BMI result Body Mass Index 43.1 Tobacco/Smoking Status: Tobacco use Status Tobacco use date assessed 07/10/23 11/12/23 17:05 Patient Tobacco Use Status Never used Tobacco 11/12/23 17:05 e-Cigarette/Vaping Use Never Used 11/12/23 17:05 Thrive Assessment: Date of Thrive Assessment Date Thrive assessed 07/10/23 11/12/23 17:05 Const General: no acute distress and alert HENMT Ears: TM's normal bilaterally and EAC's normal Throat: Yes posterior oropharynx normal and Yes tonsils normal Neck Neck: Yes no lymphadenopathy and Yes supple Thyroid: Thyroid normal Resp Auscultation: clear to auscultation bilaterally, no rales and no wheezes Cardio Rate: regular rate Rhythm: regular rhythm Heart sounds: no murmurs GI Palpation (GI): Soft to palpation and nontender Auscultation: normal bowel sounds General: Yes no CVA tenderness Back/Spine/Pelvis Back: no CVA tenderness Skin Rashes: no rashes Extrem General: Yes no clubbing, cyanosis or edema Results Reviewed Results Reviewed: Laboratory Tests 11/09/23 09:27 Sodium 140 Potassium 4.4 Creatinine 0.70 Estimated GFR > 60 Fasting Glucose 101 H Calcium 9.9 D AST 16 ALT 31 Triglycerides 90 Cholesterol 146 LDL Cholesterol, Calc 88 HDL Cholesterol 40 L 25-OH Vitamin D Total 33.8 Assessment and Plan Assessment & Plan (1) Pure hypercholesterolemia: Code(s): E78.00 - Pure hypercholesterolemia, unspecified Plan: Results of her labs done a few days ago reviewed and discussed patient - advised that her cholesterol levels have now improved significantly from previous Reinforced low cholesterol diet Continue Atorvastatin 10 mg QD Will recheck her fasting lipids and labs in 4 months for follow up (2) Impaired fasting glucose: Code(s): R73.01 - Impaired fasting glucose Plan: Her FBS was at 101 mg/dl on her recent labs; her HgbA1c was normal at 5.1% and 5.3% when checked previously Reinforced low calorie diet/exercise as tolerated (3) Vitamin D deficiency: Code(s): E55.9 - Vitamin D deficiency, unspecified Plan: Improved - continue Vitamin D3 2000 units QD (4) Allergic rhinitis: Code(s): J30.9 - Allergic rhinitis, unspecified Qualifiers: Allergic rhinitis seasonality: unspecified Allergic rhinitis trigger: unspecified Qualified Code(s): J30.9 - Allergic rhinitis, unspecified Plan: Continue Loratadine 10 mg QD PRN (5) Chondromalacia, patella: Code(s): M22.40 - Chondromalacia patellae, unspecified knee Qualifiers: Laterality: right Qualified Code(s): M22.41 - Chondromalacia patellae, right knee Plan: Follow up with orthopedics as scheduled States that her knees have not been bothering her too much lately (6) Obesity, morbid, BMI 40.0-49.9: Code(s): E66.01 - Morbid (severe) obesity due to excess calories Plan: Reinforced diet/exercise as tolerated/lose weight Plan Follow up in 4 months Orders: Orders Comprehensive [place]. Panel Fast 4 Months E78.00 - Pure hypercholesterolemia, unspecified UA CC w/rflx Micro + Cult 4 Months R30.0 - Dysuria Complete Blood Count Auto Diff 4 Months D64.9 - Anemia, unspecified Lipid Panel 4 Months E78.00 - Pure hypercholesterolemia, unspecified Coding Level of Care Code Est Pt Level 4 (71331) Diagnoses Pure hypercholesterolemia E78.00 Impaired fasting glucose R73.01 Vitamin D deficiency E55.9 Allergic rhinitis, unspecified seasonality, unspecified trigger J30.9 Allergic rhinitis seasonality: unspecified Allergic rhinitis trigger: unspecified Chondromalacia of right patella M22.41 Laterality: right Obesity, morbid, BMI 40.0-49.9 E66.01
[2023-11-12 17:14] VITALS: BP 100/72; PULSE 72; O2SAT 97; BMI 43.1
== END 2023-11-12 17:43 | disposition home or self-care (01) ==
PROVIDERS: PCP Internal Medicine; Visit Provider Internal Medicine
DX: E78.00 Pure hypercholesterolemia, unspecified (principal); R73.01 Impaired fasting glucose; E55.9 Vitamin D deficiency, unspecified; J30.9 Allergic rhinitis, unspecified; M22.41 Chondromalacia patellae, right knee
CPT/HCPCS: 99214

== ENCOUNTER 2023-12-25 12:11 | Outpatient (REF) | payer OTHER, SELFPAY ==
--- NOTE | ~2023-12-25 | MM_ITS ---
EXAMINATION: MM SCREENING DIGITAL BREAST TOMOSYNTHESIS, BILATERAL CLINICAL INFORMATION: Screening. Asymptomatic. COMPARISON: Mammography: Comparison is made with available priors TECHNIQUE: Digital breast mammography with tomosynthesis is performed in both the craniocaudal and mediolateral oblique views along with computer-aided detection (CAD). FINDINGS: There are scattered areas of fibroglandular density (ACR BI-RADS breast composition Category b). Right: There are no significant masses, abnormal calcifications, or other abnormalities. Left: Asymmetry superior breast middle and posterior depth on MLO view. Asymmetries medial breast middle and posterior depth on CC view. Asymmetry lateral breast posterior depth on CC view. No suspicious calcifications or other abnormal findings. MM/MM tomosynthesis screening BI IMPRESSION: Additional imaging is recommended ASSESSMENT: BI-RADS BI-RADS 0 - Incomplete: Needs additional Imaging. RECOMMENDATION: 1. Additional views of the left breast 2. Targeted ultrasound if warranted after review of the additional views. 3. Radiology department staff will contact the patient for additional imaging. Additional Imaging required This examination should not preclude the clinical evaluation of a suspicious palpable abnormality. This patient's information was entered into a reminder system with a target due date for their next mammogram. Electronically signed by: Romana Tovar DO 01/07/2024 04:27 PM EDT
== END 2023-12-25 12:12 | disposition home or self-care (01) ==
LOC: HO.MAMMO 12:11
PROVIDERS: PCP Internal Medicine; Visit Provider Internal Medicine
DX: Z12.31 Encounter for screening mammogram for malignant neoplasm of breast (principal)
CPT/HCPCS: 77063; 77067

== ENCOUNTER → 2023-12-25 12:30 | Outpatient (BNV) | payer OTHER, SELFPAY | PROVIDERS: PCP Internal Medicine; Visit Provider Internal Medicine | DX: Z12.31 Encounter for screening mammogram for malignant neoplasm of breast (principal) | CPT/HCPCS: 77063; 77067 ==

== ENCOUNTER 2024-02-21 12:49 | Outpatient (REF) | payer OTHER, SELFPAY ==
--- NOTE | ~2024-02-21 | MM_ITS ---
EXAMINATION: MM DIAGNOSTIC DIGITAL BREAST TOMOSYNTHESIS, LEFT US BREAST LIMITED, LEFT CLINICAL INFORMATION: Diagnostic exam; follow-up for the following: -Asymmetry superior left breast middle and posterior depth on MLO view. -Asymmetries medial left breast middle and posterior depth on CC view. -Asymmetry lateral left breast posterior depth on CC view. COMPARISON: Mammography: 12/25/2023, and priors. TECHNIQUE: Digital breast tomosynthesis is performed in the following views: 3-D spot compression left MLO view, and left CC views x3. Computer-aided diagnosis was used for this study. This is followed by targeted left breast ultrasound of the upper medial and upper lateral quadrants left breast. FINDINGS: There are scattered areas of fibroglandular density (ACR BI-RADS breast composition Category b). No definite persistent asymmetries are present in the left breast as questioned; all 4 left breast asymmetries efface on spot compression views and are consistent with superimposition artifact of overlapping fibroglandular tissues. All have a stable appearance from numerous prior exams, including exams dating back to 2013. To be cautious, we will evaluate the upper inner and upper outer left breast with ultrasound. ULTRASOUND: CLINICAL INFORMATION: As above. COMPARISON: Correlation made with left breast ultrasound 12/10/2020. TECHNIQUE: Targeted sonographic evaluation left breast was performed using a high frequency linear transducer. The upper outer and upper inner quadrants of the left breast were examined. Selected archived documentation. FINDINGS: LEFT BREAST: At the 11:00 axis, 7 cm from the nipple, there is a small oval circumscribed hypoechoic mass versus complicated cyst with no internal color Doppler flow, no posterior features, smooth margination, wider than tall, most likely a small fibroadenoma versus complicated cyst. This is probably benign, and six-month interval follow-up recommended to ensure stability. MM/MM tomosynthesis added views L IMPRESSION: -There are no findings suspicious for malignancy left breast. -Probably benign small fibroadenoma versus complicated cyst left breast 11:00 axis as detailed. Six-month interval follow-up TARGETED LEFT BREAST ULTRASOUND recommended to ensure stability. OVERALL ASSESSMENT: Mammography: BI-RADS 3 - Probably benign finding(s) - 6 month follow-up suggested Ultrasound: BI-RADS 3 - Probably benign finding(s) - 6 month follow-up suggested RECOMMENDATION: 6 Month F/U This patient's information was entered into a reminder system with a target due date for their next mammogram. Electronically signed by: Roel Johns MD 02/21/2024 02:10 PM EVELYN HARRIS
== END 2024-02-21 12:50 | disposition home or self-care (01) ==
LOC: HO.MAMMO 12:49
PROVIDERS: PCP Internal Medicine; Visit Provider Internal Medicine
DX: N64.89 Other specified disorders of breast (principal)
CPT/HCPCS: 76642; 77061; 77065

== ENCOUNTER → 2024-02-21 13:00 | Outpatient (BNV) | payer SELFPAY | PROVIDERS: PCP Internal Medicine; Visit Provider Radiology Diagnostic Radiology | DX: R92.8 Other abnormal and inconclusive findings on diagnostic imaging of breast (principal) | CPT/HCPCS: 76642; 77061; 77065 ==

== ENCOUNTER 2024-03-24 08:48 | Outpatient (REF) | payer OTHER, SELFPAY ==
[2024-03-24 09:19] LABS: MANUAL DIFF FLAG NO
[2024-03-24 10:43] LABS: Basophils Percent Auto 0.2 % (0-2); Eosinophils Absolute Auto 0.1 X10*3/uL (0.0-0.4); Eosinophils Percent Auto 2.6 % (0-4); Hematocrit 39.3 % (37.0-47.0); Imm Gran Abs Auto 0.02 X10*3/uL (0.00-0.03); Imm Gran Pct Auto 0.4 % (0.0-0.4); Lymphocytes Absolute Auto 1.2 X10*3/uL (1.2-4.9); Lymphocytes Percent Auto 23.1 % (20-40); Mean Corpuscular HGB Conc 33.1 g/dl (31.0-35.0); Mean Corpuscular Hemoglobin 27.9 pg (27.0-33.0); Mean Corpuscular Volume 84.3 fL (80.0-98.0); Mean Platelet Volume 11.8 fL (9.4-12.3); Monocytes Absolute Auto 0.5 X10*3/uL (0.1-1.2); Monocytes Percent Auto 9.8 % (2-11); Neutrophils Absolute Auto 3.4 x10*3/uL (2.0-8.3); Neutrophils Percent Auto 63.9 % (45-73); Platelet Count 265 X10*3/uL (160-400); Red Blood Count 4.66 X10*6/uL (4.20-5.50); Red Cell Distribution Width 12.4 % (11.0-16.0); White Blood Count 5.3 X10*3/uL (4.8-10.8)
[2024-03-24 10:44] LABS: Appearance Urine Cloudy; Color Urine Yellow; Glucose Urine UA Negative (Negative); Leukocyte Esterase Urine Moderate (2+) (Negative); Nitrite Urine Negative (Negative); PH 5.5 (5.0-9.0); UMIC TRIGGER UACC YES; Urine Blood Negative (Negative); Urine Ketones Negative (Negative); Urine Protein Negative (Neg-Trace)
[2024-03-24 10:53] LABS: Bacteria Urine 2+ (None Seen); UACC Culture Trigger YES
[2024-03-24 10:54] LABS: RBC Urine 0-2 /HPF (0-2)
[2024-03-24 11:49] LABS: Albumin Level 3.8 g/dL (3.5-5.0); Anion Gap 14 (12-20); Aspartate Amino Transferase 24 U/L (5-31); Bilirubin Total 0.4 mg/dL (0.0-1.0); Blood Urea Nitrogen 9 mg/dL (9-16); Carbon Dioxide 23 mmol/L (22-29); Chloride 108 mmol/L (96-108); Cholesterol 175 mg/dL (<200); Estimated Glomerular Filt Rate > 60; Glucose Fasting 99 mg/dL (60-99); HDL Cholesterol 36 mg/dL (>40); LDL Cholesterol Calculated 116 mg/dL (<100); Sodium 141 mmol/L (135-145); Total Protein 7.3 g/dL (6.5-8.0); Triglycerides 119 mg/dL (<150)
[2024-03-24 12:00] LABS: Alanine Aminotransferase 26 U/L (0-31); Alkaline Phosphatase 83 U/L (39-117)
== END 2024-03-24 08:49 | disposition home or self-care (01) ==
LOC: HO.LAB 08:48
PROVIDERS: PCP Internal Medicine; Visit Provider Internal Medicine
DX: E78.00 Pure hypercholesterolemia, unspecified (principal); R73.01 Impaired fasting glucose; J30.9 Allergic rhinitis, unspecified; E55.9 Vitamin D deficiency, unspecified; M22.41 Chondromalacia patellae, right knee; R92.30 Dense breasts, unspecified; E66.01 Morbid (severe) obesity due to excess calories; Z68.41 Body mass index [BMI] 40.0-44.9, adult; D64.9 Anemia, unspecified
CPT/HCPCS: 36415; 80053; 80061; 81001; 85025; 87086; 96127

== ENCOUNTER 2024-03-24 16:43 | Outpatient (AMB) | payer OTHER, SELFPAY ==
[2024-03-24 16:45] VITALS: BP 110/72; PULSE 79; O2SAT 97; BMI 43.3
--- NOTE | 2024-03-24 16:45 | MHC.PC.OV ---
Vital Signs 03/24/24 16:45 Height 5 ft 1 in Weight 229 lb 2 oz BMI 43.3 BP 110/72 Blood Pressure Location Lt brachial Position Sitting Pulse 79 Pulse Source Pulse Oximeter Pulse Oximetry (%) 97 Oxygen Delivery Method Room Air Intake Visit Reasons: hyperlipidemia E Business Consultant Required: No Accompanied by: Self / Same As Patient Allergies Penicillins [PENICILLINS] Allergy (Unknown, Verified 03/24/24 17:02) HIVES Medication List - Last Reconciled 03/24/24 by Adrian Simons MD albuterol sulfate 90 mcg/actuation 1 - 2 puffs inhalation Q6H PRN 30 days atorvastatin 10 mg PO BEDTIME 90 days cholecalciferol (vitamin D3) 50 mcg PO DAILY 90 days ibuprofen 600 mg PO Q6H PRN loratadine 10 mg PO DAILY PRN 90 days mometasone 0.1% 1 appl topical DAILY PRN 30 days Tobacco use date assessed: 03/24/24 Dental Screening Dental Screen Date: 03/24/24 Did you have a dental visit in the last 12 months?: Yes Did you have a dental problem in the last 6 months where you did not have access to dental care?: No Was dental information given to patient?: Patient has dentist HPI hyperlipidemia HPI Details Patient comes in today for her follow up visit States that she feels okay She denies any headaches or dizziness Denies any chest pains, no SOB No nausea/vomiting, no abdominal pain No change in bowel habits noted Needs her Atorvastatin Rx refilled She had her follow up labs done earlier this morning - to discuss her results [facility] Medical History Morbid obesity with BMI of 40.0-44.9, adult Vitamin D deficiency GERD without esophagitis Chondromalacia patellae of right knee Pure hypercholesterolemia Chondromalacia, patella Allergic rhinitis Surgical History S/P laparoscopic cholecystectomy (~06/2020) History of tubal ligation Previous section Family History Father Esophageal cancer Mother Diabetes Maternal Uncle Colon cancer Social History Household Members: Spouse Housing: House Do you presently have visiting nurse or other home services: No Alcohol intake: current Alcohol intake frequency: holidays/special occasions only Comment: sleeping Patient Tobacco Use Status: Never used Tobacco e-Cigarette/Vaping Use: Never Used Second Hand Smoke Exposure: Yes service: No Current occupational status: employed Current occupation: [employer] Sexual orientation: Straight/Heterosexual Gender identity: Female Cognitive needs: No Hearing needs: No Vision needs: Yes Questionnaire PHQ-9 Over the last 2 weeks, how often have you been bothered by any of the following problems? 1. Little interest or pleasure in doing things: not at all 2. Feeling down, depressed, or hopeless: not at all 3. Trouble falling or staying asleep, or sleeping too much: not at all 4. Feeling tired or having little energy: not at all 5. Poor appetite or overeating: not at all 6. Feeling bad about yourself - or that you are a failure or have let yourself or your family down: not at all 7. Trouble concentrating on things, such as reading the newspaper or watching television: not at all 8. Moving or speaking so slowly that other people could have noticed. Or the opposite - being so fidgety or restless that you have been moving around a lot more than usual: not at all 9. Thoughts that you would be better off or of hurting yourself in some way: not at all Total score: 0 Depression Screening Interpretation: Negative Depression Screening Done: Yes 75909 - PHQ-9 Billing: Yes Source: Developed by Drs. Cesario Vasquez, Leila Mcdowell, Julio Michel and colleagues, with an educational mónica from [employer]. Thrive Questionnaire Date Thrive assessed: 03/24/24 I am a: Patient What is your living situation today?: I have a steady place to live Within the past 12 months, did the food you bought not last and you didn't have the money to get more?: Never true Within the past 12 months, did you worry whether your food would run out before you got money to buy more?: Never true Do you have trouble paying for medicines?: No Do you have trouble getting transportation to medical appointments?: No Do you have trouble paying your heating and electricity bill?: No Do you have trouble taking care of your child, family member or friend?: No Do you have trouble with day-to-day activities such as bathing, preparing meals, shopping, managing finances, etc.?: No Are you currently unemployed and looking for a job?: No Are you interested in more education?: No Please select the resources that you would like help with: None Currently or been in a relationship where the following occur: No concerns reported THRIVE Score: 0 AUDIT C Alcohol Use Questionnaire (AUDIT-C) 1. How often do you have a drink containing alcohol?: Monthly or less 2. How many drinks containing alcohol do you have on a typical day when you are drinking?: 5 or 6 3. How often do you have six or more drinks on one occasion?: Monthly Total Score: 5 Score Reviewed/Action Taken: Yes DEVONTE-7 AMB Questionnaire DEVONTE-7 Date DEVONTE - 7 assessed: 03/24/24 Feeling nervous, anxious, or on edge: 0 = Not at all Not being able to stop or control worryin = Not at all Worrying too much about different things: 0 = Not at all Trouble relaxin = Not at all Being so restless that it is hard to sit still: 0 = Not at all Becoming easily annoyed or irritable: 0 = Not at all Feeling afraid as if something awful might happen: 0 = Not at all Total DEVONTE-7 score (0-4 normal; 5-9 mild; 10-14 moderate; 15-21 severe): 0 Source: Developed by Drs. Cesario Vasquez, Leila Mcdowell, Julio Michel and colleagues, with an educational mónica from [employer]. Review of Systems Const Denies chills, Denies fatigue, Denies fever(s) and Denies headache(s) ENT Denies dysphagia, Denies dizziness, Denies otalgia, Denies headache(s), Denies neck pain, Denies odynophagia and Denies sore throat Card Denies chest pain, Denies palpitations and Denies dyspnea Resp Denies chest congestion, Denies cough and Denies dyspnea GI Denies abdominal pain, Denies constipation, Denies dysphagia, Denies heartburn, Denies diarrhea, Denies nausea, Denies odynophagia and Denies vomiting Denies difficulty voiding, Denies nocturia, Denies dysuria and Denies urinary urgency Musc Denies back pain, Denies arthralgias and Denies neck pain Skin/Breast Denies rash Neuro Denies dizziness and Denies headache(s) Endo Denies fatigue and Denies palpitations Physical exam (Primary Care) Vital Signs: Last Vital Signs Pulse 79 03/24/24 16:45 BP 110/72 03/24/24 16:45 Pulse Ox 97 03/24/24 16:45 Oxygen Delivery Method Room Air 03/24/24 16:45 BMI result Body Mass Index 43.3 Tobacco/Smoking Status: Tobacco use Status Tobacco use date assessed 03/24/24 03/24/24 16:48 Patient Tobacco Use Status Never used Tobacco 03/24/24 16:48 e-Cigarette/Vaping Use Never Used 03/24/24 16:48 PHQ-9: PHQ-9 Score PHQ-9: Total score 0 03/24/24 17:05 Depression Screening Interpretation: Negative Thrive Assessment: Date of Thrive Assessment Date Thrive assessed 03/24/24 03/24/24 16:48 Currently or been in a relationship where the following occur: No concerns reported Const General: no acute distress and alert HENMT Ears: TM's normal bilaterally and EAC's normal Throat: Yes posterior oropharynx normal and Yes tonsils normal Neck Neck: Yes supple and No lymphadenopathy Thyroid: Thyroid normal Resp Auscultation: clear to auscultation bilaterally, no rales and no wheezes Cardio Rate: regular rate Rhythm: regular rhythm Heart sounds: no murmurs GI Palpation (GI): Soft to palpation and nontender Auscultation: normal bowel sounds General: Yes no CVA tenderness Back/Spine/Pelvis Back: no CVA tenderness Thoracic/Lumbar Spine: No lumbar spinal tenderness Skin Rashes: no rashes Extrem General: Yes no clubbing, cyanosis or edema Results Reviewed Results Reviewed: Laboratory Tests 03/24/24 03/24/24 09:06 09:18 WBC 5.3 Hgb 13.0 Hct 39.3 Plt Count 265 Sodium 141 Potassium 4.0 Creatinine 0.75 Estimated GFR > 60 Fasting Glucose 99 Calcium 9.0 D AST 24 ALT 26 Triglycerides 119 Cholesterol 175 LDL Cholesterol, Calc 116 H HDL Cholesterol 36 L Ur Specific [place] 1.020 Urine Protein Negative Urine Glucose (UA) Negative Urine Blood Negative Urine Nitrite Negative Ur Leukocyte Esterase Moderate (2+) H Coding Level of Care Code Est Pt Level 4 (19821) Diagnoses Pure hypercholesterolemia E78.00 Impaired fasting glucose R73.01 Allergic rhinitis, unspecified seasonality, unspecified trigger J30.9 Allergic rhinitis seasonality: unspecified Allergic rhinitis trigger: unspecified Vitamin D deficiency E55.9 Chondromalacia of right patella M22.41 Laterality: right Breast density R92.30 Morbid obesity with BMI of 40.0-44.9, adult E66.01; Z68.41 Additional Codes PHQ-9 - 31680 - PHQ-9 Billing: Yes ([id number]) Assessment & Plan Assessment & Plan (1) Pure hypercholesterolemia: Code(s): E78.00 - Pure hypercholesterolemia, unspecified Category: Medical Plan: Results of her labs done earlier this morning reviewed and discussed patient - she is advised that her cholesterol levels have increased significantly from previous Reinforced low cholesterol diet - patient admits to poor compliance with her diet over the past few months and that she was also off her Rx for about a week or so when her Rx ran out and she did not get it refilled right away States that she is now back on her medication Will continue Atorvastatin 10 mg QD for now - Rx refilled Will recheck her fasting lipids and labs in 4 months for follow up (2) Impaired fasting glucose: Code(s): R73.01 - Impaired fasting glucose Category: Medical Plan: Her FBS was normal at 99 mg/dl on her labs done this morning; her HgbA1c was normal at 5.1% and 5.3% when checked previously Reinforced low calorie diet/exercise as tolerated (3) Allergic rhinitis: Code(s): J30.9 - Allergic rhinitis, unspecified Category: Medical Qualifiers: Allergic rhinitis seasonality: unspecified Allergic rhinitis trigger: unspecified Qualified Code(s): J30.9 - Allergic rhinitis, unspecified Plan: Continue Loratadine 10 mg QD PRN (4) Vitamin D deficiency: Code(s): E55.9 - Vitamin D deficiency, unspecified Category: Medical Plan: Continue Vitamin D3 2000 units QD (5) Chondromalacia, patella: Code(s): M22.40 - Chondromalacia patellae, unspecified knee Category: Medical Qualifiers: Laterality: right Qualified Code(s): M22.41 - Chondromalacia patellae, right knee Plan: Follow up with orthopedics as scheduled States that her knees have not been bothering her too much lately (6) Breast density: Code(s): R92.30 - Dense breasts, unspecified Category: Medical Plan: Her routine screening mammogram done back in December 2022 revealed (+) scattered areas of fibroglandular density (ACR BI-RADS breast composition Category b) in the left breast She was sent for additional imaging and US of the breast - additional tests all came back negative and these were again negative when they were rechecked last month (February 2024) She will be reevaluated with repeat mammogram and US in 6 months for continuing observation (7) Morbid obesity with BMI of 40.0-44.9, adult: Code(s): E66.01 - Morbid (severe) obesity due to excess calories; Z68.41 - Body mass index [BMI] 40.0-44.9, adult Category: Medical Plan: Reinforced diet/exercise as tolerated/lose weight Plan Follow up in 4 months Orders: Orders Comprehensive Rentz. Panel Fast 4 Months E78.00 - Pure hypercholesterolemia, unspecified Lipid Panel 4 Months E78.00 - Pure hypercholesterolemia, unspecified Medications: Refilled atorvastatin 10 mg PO BEDTIME 90 days 90 tabs 1RF
== END 2024-03-24 17:11 | disposition home or self-care (01) ==
PROVIDERS: PCP Internal Medicine; Visit Provider Internal Medicine
DX: E78.00 Pure hypercholesterolemia, unspecified (principal); R73.01 Impaired fasting glucose; E66.01 Morbid (severe) obesity due to excess calories; Z68.41 Body mass index [BMI] 40.0-44.9, adult; J30.9 Allergic rhinitis, unspecified; E55.9 Vitamin D deficiency, unspecified; M22.41 Chondromalacia patellae, right knee; R92.30 Dense breasts, unspecified

== ENCOUNTER 2024-08-21 13:23 | Outpatient (REF) | payer OTHER, SELFPAY ==
--- NOTE | ~2024-08-21 | US_ITS ---
EXAMINATION: US DIAGNOSTIC ULTRASOUND BREAST, LEFT CLINICAL INFORMATION: 6 month follow-up from hypoechoic solid mass versus complicated cyst at 11:00 7 cm from the nipple.. COMPARISON: Comparison is made with relevant prior imaging. TECHNIQUE: Ultrasound of the breast is performed with real-time jeffrey scale imaging and color Doppler. FINDINGS: Targeted color Doppler ultrasound at 11:00 7 cm from the nipple demonstrates 2 hypoechoic oval parallel circumscribed solid masses versus complicated cyst measuring 4 x 6 x 4 mm and 3 x 2 x 3 mm. Images from prior ultrasound were described but no images are available of this area previously. Results are discussed with the patient at time of visit. US/US breast LT limited mamm only IMPRESSION: 2 hypoechoic solid masses versus complicated cyst at 11:00 7 cm from the nipple. Recommend 6 month follow-up ultrasound for further evaluation of stability. At that time the patient will be due for bilateral mammography. ASSESSMENT: BI-RADS 3: Probably Benign RECOMMENDATION: Diagnostic mammography in 6 months. This patient's information was entered into a reminder system with a target due date for their next mammogram. Electronically signed by: Romana Tovar DO 08/21/2024 02:00 PM EDT
--- OUTSIDE RECORDS SUMMARY | 2024-08-21 14:01 | XMS_ITS | Clinical Summary ---
Author Organization [facility] Address [address] [place] [address] Care Team Providers Care Lung Splitter Name Role Phone Unavailable Primary Care Provider Unavailabl e Source Comments PLEASE NOTE, if this patient is a minor, it may be UNLAWFUL to discuss sensitive information that is contained in these records (such as FAMILY PLANNING, MENTAL HEALTH or SUBSTANCE ABUSE) with the minor patient's parent or other person without the patient's specific authorization.[facility] Social History Tobacco Use Types Packs/Day Years Used Date Smoking Tobacco: Never Assessed Social Connections Answer Date Recorded Social Connections and Isolation 0 01/13/2021 Financial Resource Strain Answer Date R ecorded Financial Resource Strain 0 2020 Stress Answer Date Recorded Stress 0 01/13/2021 Physical Activity Answer Date Recorded Physical Activity 0 01/13/2021 Food Insecurity Answer Date Recorded Food 0 01/13/2021 Transportation Needs Answer Date Record ed Transportation 0 01/13/2021 Housing Stability Answer Date Recorded Housing 0 01/13/2021 Safety and Environment Answer Date Goyo rded Safety 0 01/13/2021 Utilities Answer Date Recorded Utilities 0 01/13/2021 Employment Answer Date Recorded Employment 0 01/13/2021 Comments Unknown Sex and Gender Information Value Date Recorded Sex Assigned at Female 01/23/2022 1:47 PM PDT Legal Sex Female 6:04 AM PDT Gender Identity Female 01/23/2022 1:47 PM PDT Sexual Orientation Straight 01/23/2022 1: 47 PM PDT Plan of Treatment Not on file Insurance [employer]
== END 2024-08-21 13:24 | disposition home or self-care (01) ==
LOC: HO.MAMMO 13:23
PROVIDERS: PCP Internal Medicine; Visit Provider Internal Medicine
DX: N60.02 Solitary cyst of left breast (principal)
CPT/HCPCS: 76642

== ENCOUNTER → 2024-08-21 13:30 | Outpatient (BNV) | payer OTHER, SELFPAY | PROVIDERS: PCP Internal Medicine; Visit Provider Internal Medicine | DX: N63.21 Unspecified lump in the left breast, upper outer quadrant (principal) | CPT/HCPCS: 76642 ==

== ENCOUNTER 2024-09-03 14:06 | Outpatient (AMB) | payer OTHER, SELFPAY ==
--- NOTE | 2024-09-03 14:07 | A.OFFVIS_ITS ---
Vital Signs 3 09/03/24 14:09 Height 5 ft 1 in Weight 230 lb BMI 43.5 BP 120/82 Intake Visit Reasons: annual Legal Word Processor: Legal Word Processor Present (Rissa) Allergies Penicillins [PENICILLINS] Allergy (Unknown, Verified 09/03/24 14:09) HIVES Is last menstrual period known: Yes Last menstrual period: 08/10/24 HPI Comments Details: She is a premenopausal woman presenting for annual examination. Doing well with fine hairer concerns. Hot flashes at night interfering with sleep. Left breast lump under breast at 7:00, feels electric shock sensation 4-5/wk. No nipple d/c, injuries, biopsies or surgery to area. History of chronic breast cystic lesions that rupture on their own. Regular monthly menses x HMB 2-3/7d. Currently is sexually active. She denies vaginal itching or irritation. STI screening offered; she accepts. She tries to eat healthy and stays active with exercise. Denies family history of breast or ovarian. FH of colon cancer. Last pap smear 2021, negative. Mammogram: 2023, additional views in six-month plan. [facility] Medical History (Updated 09/03/24 @ 15:01 by Valerie Zeng CNM) Breast thickening Skin lesion Morbid obesity with BMI of 40.0-44.9, adult Vitamin D deficiency GERD without esophagitis Chondromalacia patellae of right knee Pure hypercholesterolemia Chondromalacia, patella Allergic rhinitis Surgical History S/P laparoscopic cholecystectomy (~06/2020) History of tubal ligation Previous section Family History Father Esophageal cancer Mother Diabetes Maternal Uncle Colon cancer Social History Household Members: Spouse Housing: House Do you presently have visiting nurse or other home services: No Alcohol intake: current Alcohol intake frequency: holidays/special occasions only Comment: sleeping Patient Tobacco Use Status: Never used Tobacco e-Cigarette/Vaping Use: Never Used Second Hand Smoke Exposure: Yes service: No Current occupational status: employed Current occupation: [employer] Sexual orientation: Straight/Heterosexual Gender identity: Female Cognitive needs: No Hearing needs: No Vision needs: Yes Female Reproductive History Menstrual Date of last menstrual period: 08/10/24 control method: permanent sterilization Permanent Sterilization: BTL Total pregnancies: 2 Full term: 2 Number of Living Children: 2 Date of last pap smear: 05/10/21 (neg pap and hpv) Date of Mammogram: 12/25/23 (Birad 0 02/21/24 Birad 3, 08/21/24 Birad 3) Review of Systems Const All systems reviewed & are unremarkable except as noted in HPI and below Reports as per HPI Eyes Reports no additional complaints ENT Reports no additional complaints Card Reports no additional complaints Resp Reports no additional complaints GI Reports as per HPI and Reports no additional complaints Reports as per HPI Musc Reports no additional complaints Skin/Breast Reports as per HPI Neuro Reports no additional complaints Psych Reports no additional complaints Endo Reports no additional complaints Derrell/Lymph Reports no additional complaints Aller/Immun Reports no additional complaints Physical Exam Vital Signs: Last Vital Signs BP 120/82 09/03/24 14:09 BMI result Body Mass Index 43.5 Const General: cooperative, healthy appearing, no acute distress, well developed and alert Orientation/consciousness: patient oriented x3 HEENT Head: Yes normal to inspection Eyes General: appearance normal, both eyes and all related structures Neck Neck: Yes normal visual inspection Thyroid: Thyroid normal Chest Other: Multiple healing sores and cystic lesions throughout the breast worse on the left side with overlying induration of breast tissue 3-4 cm above the lesion at a 7 to 8 o'clock position Chest palpation & inspection: normal inspection of the chest and other (no puckering, dimpling, peau de orange, retraction, discharge, masses) Breast/axilla inspection: normal inspection of the breasts Breast/axilla palpation: normal palpation of the breasts Chest/axillae images: 2 1. Resp Effort & Inspection: normal respiratory effort GI Inspection: Yes normal to inspection Palpation (GI): Soft to palpation Rectal Exam - Female: deferred Other: Multiple skin eruptions and lesions in various healing stages. General: Yes bladder normal to palpation External Female Exam: normal external appearance and normal appearance of the urethra Speculum Exam - Vagina: normal appearance of the vagina, normal palpation and abnormal vaginal discharge (thick yellow) Speculum Exam - Cervix: normal appearance of the cervix and normal palpation Bimanual exam- vagina & uterus: normal bimanual exam, normal palpation, uterine size normal, bladder normal to palpation, normal palpation and non-tender Bimanual Exam- Adnexa, other: no masses Skin General skin exam: no rashes or lesions noted Rashes: no rashes Neuro General: patient oriented x3 Cognition (Neuro): normal cognition Extrem General: Yes normal to inspection Psych Attitude: cooperative Thought process: Normal thought process present Assessment & Plan Assessment & Plan (1) Abnormal uterine bleeding: Code(s): N93.9 - Abnormal uterine and vaginal bleeding, unspecified Plan: Workup for AUB to include pelvic ultrasound, CBC and TSH. Counseled regarding endometrial biopsy and preprocedure planning with eating and drinking and taking 3 ibuprofen 1 hour before her procedure. Appointment follow up to be made after ultrasound completed. The patient expressed understanding and agreement with the plan of care. All of her questions and concerns were addressed to the best of my ability. (2) Skin lesion: Code(s): L98.9 - Disorder of the skin and subcutaneous tissue, unspecified Category: Medical Plan: Common findings for obesity multiple cystic painful chronic lesions. Advised antimicrobial soap and cleaning with a washcloth, air drying area, loose cotton clothing, referral placed for dermatology. The patient expressed understanding and agreement with the plan of care. All of her questions and concerns were addressed to the best of my ability. (3) Breast thickening: Code(s): N64.59 - Other signs and symptoms in breast Category: Medical Plan: Area of concern is where the chronic inflammation resides on the inner left breast, plan referral of the breast surgeons for further evaluation. She reports the thickened area was prior to the onset of this current lesion. The patient expressed understanding and agreement with the plan of care. All of her questions and concerns were addressed to the best of my ability. (4) Encounter for annual routine gynecological examination: Code(s): Z01.419 - Encounter for gynecological examination (general) (routine) without abnormal findings Category: Medical Plan Discussed: Current recommendations for pap smears per ASCCP guidelines. BV panel obtained due to abnormal discharge findings. Await results for plan of care. Breast awareness and periodic breast exams. Mammogram yearly. Maintain a healthy lifestyle including a well balanced diet and routine exercise. Patient verbalizes understanding and agrees to the plan of care. She was given opportunity to ask questions and all questions were answered to the best of my ability. RTO in one year for annual fine hairer examination. Total time I personally spent on visit and management today: 15 minutes. Time spent included review of pertinent office notes in the electronic health record; review of laboratory and imaging results; review of personal family medical history; performing physical exam; discussing diagnosis and plan of care with the patient; documenting the encounter in the EMR. This note is constructed using voice recognition software. While every effort has been made to ensure accuracy, heel breaster errors may have been included. Orders: Orders 2 Bacterial Vaginosis Panel 09/03/24 N93.9 - Abnormal uterine and vaginal bleeding, unspecified Thyroid Stimulating Hormone 09/03/24 N92.1 - Excessive and frequent menstruation with irregular cycle, N93.9 - Abnormal uterine and vaginal bleeding, unspecified US pelvic and transvaginal 09/03/24 N93.9 - Abnormal uterine and vaginal bleeding, unspecified CT NG by PCR 09/03/24 N93.9 - Abnormal uterine and vaginal bleeding, unspecified Complete Blood Count no Diff 09/03/24 N93.9 - Abnormal uterine and vaginal bleeding, unspecified Referrals 2 Dermatology Referral L98.9 - Disorder of the skin and subcutaneous tissue, unspecified Breast Surgery Referral N64.59 - Other signs and symptoms in breast Coding Level of Care Code Est Pt Level 2 (40460) Est Pt Prev Care 40-64y(92914) Diagnoses Abnormal uterine bleeding N93.9 Skin lesion L98.9 Breast thickening N64.59 Encounter for annual routine gynecological examination Z01.419
[2024-09-03 14:09] VITALS: BP 120/82; BMI 43.5
== END 2024-09-03 15:05 | disposition home or self-care (01) ==
LOC: HO.HWS 14:06
PROVIDERS: PCP Internal Medicine; Visit Provider Advanced Practice Midwife
DX: N93.9 Abnormal uterine and vaginal bleeding, unspecified (principal); L98.9 Disorder of the skin and subcutaneous tissue, unspecified; N64.59 Other signs and symptoms in breast; Z01.419 Encounter for gynecological examination (general) (routine) without abnormal findings
CPT/HCPCS: 99212; 99396; 99459

== ENCOUNTER 2024-09-03 14:06 | Outpatient (REF) | payer OTHER, SELFPAY ==
--- OUTSIDE RECORDS SUMMARY | 2024-09-03 15:40 | XMS_ITS | Clinical Summary ---
Author Organization [facility] Address [address] [place] [address] Care Team Providers Care Rhic Systems Safety Engineer Name Role Phone Unavailable Primary Care Provider [...]
== END 2024-09-03 14:07 | disposition home or self-care (01) ==
LOC: HO.LAB 14:06
PROVIDERS: PCP Internal Medicine; Visit Provider Advanced Practice Midwife
DX: Z13.89 Encounter for screening for other disorder (principal)

== ENCOUNTER 2024-09-03 14:51 | Outpatient (REF) | payer OTHER, SELFPAY ==
[2024-09-03 17:29] LABS: Bacterial Vaginosis PCR NEGATIVE (Negative); Candida Group PCR NOT DETECTED (Not Detect); Candida glab krusei PCR NOT DETECTED (Not Detect); Trichomonas vaginalis PCR NOT DETECTED (Not Detect)
[2024-09-04 10:40] LABS: CT PCR NOT DETECTED (Not Detect.); NG PCR NOT DETECTED (Not Detect.)
== END 2024-09-03 14:52 | disposition home or self-care (01) ==
LOC: HO.LNP 14:51
PROVIDERS: Visit Provider Advanced Practice Midwife
DX: N93.9 Abnormal uterine and vaginal bleeding, unspecified (principal); Z20.2 Contact with and (suspected) exposure to infections with a predominantly sexual mode of transmission
CPT/HCPCS: 81515; 87491; 87591

== ENCOUNTER 2024-09-12 09:15 | Outpatient (REF) | payer OTHER, SELFPAY ==
--- OUTSIDE RECORDS SUMMARY | 2024-09-12 09:47 | XMS_ITS | Clinical Summary ---
Author Organization [facility] Address [address] [place] [address] Care Team Providers Care Plant And Machinery Valuer Name Role Phone Unavailable Primary Care Provider [...]
[2024-09-12 10:09] LABS: Hematocrit 39.6 % (37.0-47.0); Mean Corpuscular HGB Conc 32.8 g/dl (31.0-35.0); Mean Corpuscular Hemoglobin 27.5 pg (27.0-33.0); Mean Corpuscular Volume 83.7 fL (80.0-98.0); Mean Platelet Volume 11.4 fL (9.4-12.3); Platelet Count 256 X10*3/uL (160-400); Red Blood Count 4.73 X10*6/uL (4.20-5.50); Red Cell Distribution Width 12.6 % (11.0-16.0); White Blood Count 6.1 X10*3/uL (4.8-10.8)
[2024-09-12 10:37] LABS: Alanine Aminotransferase 22 U/L (0-31); Alkaline Phosphatase 88 U/L (39-117); Anion Gap 10 (12-20); Aspartate Amino Transferase 20 U/L (5-31); Bilirubin Total 0.4 mg/dL (0.0-1.0); Blood Urea Nitrogen 13 mg/dL (9-16); Calcium 9.2 mg/dL (8.4-10.2); Carbon Dioxide 27 mmol/L (22-29); Chloride 108 mmol/L (96-108); Cholesterol 132 mg/dL (<200); Estimated Glomerular Filt Rate > 60; Glucose Fasting 97 mg/dL (60-99); HDL Cholesterol 37 mg/dL (>40); LDL Cholesterol Calculated 77 mg/dL (<100); Potassium 3.8 mmol/L (3.3-5.1); Sodium 141 mmol/L (135-145); Total Protein 7.3 g/dL (6.5-8.0); Triglycerides 92 mg/dL (<150)
== END 2024-09-12 09:16 | disposition home or self-care (01) ==
LOC: HO.LAB 09:15
PROVIDERS: Absent Provider Advanced Practice Midwife; PCP Internal Medicine; Visit Provider Internal Medicine
DX: E78.00 Pure hypercholesterolemia, unspecified (principal); N92.1 Excessive and frequent menstruation with irregular cycle; N93.9 Abnormal uterine and vaginal bleeding, unspecified
CPT/HCPCS: 36415; 80053; 80061; 84443; 85027

== ENCOUNTER 2024-10-16 14:45 | Outpatient (AMB) | payer OTHER, SELFPAY ==
--- NOTE | 2024-10-16 14:47 | A.OFFVIS_ITS ---
Vital Signs 3 10/16/24 14:57 Height 5 ft 1 in Weight 231 lb 8 oz BMI 43.7 BP 136/68 Blood Pressure Location Lt brachial Position Sitting Pulse 79 Intake Visit Reasons: Chronic skin eruptions of the breast Intake Note: Patient is seen in office for chronic skin erruption of the breast. Pt c/o: for the past couple months feels a lump under the left breast, hard to lay down on that side, had some discharge pimple/cyst , no antbx, no fm hx of breast cancer us:08/21/24 mm:02/20/25 Care Management Assistant Required: No Recreation Facility Attendant: Recreation Facility Attendant Present Accompanied by: Self / Same As Patient Allergies Penicillins (PENICILLINS) Allergy (Unknown, Verified 10/16/24 14:56) HIVES ROHIT Comments Details: 41-year-old female patient presenting for evaluation of left breast skin thickening noted on self-examination. She reports having a pustule over this area recently which has subsequently resolved. She continues to feel the thickening within the breast tissue for the past year or more. She denies any significant changes in the size of this but does report pain especially while in bed if laying on her chest. She denies any fever or chills. She is also being followed for a left breast anechoic solid or complex cystic lesion in the 11 o'clock position and recently underwent ultrasound evaluation which was essentially unchanged from her prior study. A diagnostic mammogram was recommended for six-month following the ultrasound. She is not able to feel any mass in the 11 o'clock position of the left breast. Her family history is negative for breast cancer. She is 2 para 2 and menarche was at 13. PFSH Medical History Breast thickening Skin lesion Morbid obesity with BMI of 40.0-44.9, adult Vitamin D deficiency GERD without esophagitis Chondromalacia patellae of right knee Pure hypercholesterolemia Chondromalacia, patella Allergic rhinitis Surgical History S/P laparoscopic cholecystectomy (~06/2020) History of tubal ligation Previous section Family History Father Esophageal cancer Mother Diabetes Maternal Uncle Colon cancer Social History Household Members: Spouse Housing: House Do you presently have visiting nurse or other home services: No Alcohol intake: current Alcohol intake frequency: holidays/special occasions only Comment: sleeping Patient Tobacco Use Status: Never used Tobacco e-Cigarette/Vaping Use: Never Used Second Hand Smoke Exposure: Yes service: No Current occupational status: employed Current occupation: [employer] Sexual orientation: Straight/Heterosexual Gender identity: Female Cognitive needs: No Hearing needs: No Vision needs: Yes Female Reproductive History Menstrual Age of Menarche: 13 Date of last menstrual period: 09/12/24 Total pregnancies: 2 Number of Living Children: 2 Review of Systems Const All systems reviewed & are unremarkable except as noted in HPI and below Physical Exam Vital Signs: Last Vital Signs Pulse 79 10/16/24 14:57 BP 136/68 10/16/24 14:57 BMI result Body Mass Index 43.7 Const General: comfortable Nutritional Appearance: well nourished Orientation/consciousness: patient oriented x3 Chest Chest/axillae images: 2 1. Area of thickening in the lower inner quadrant just above the inframammary crease measuring approximately 2 cm in diameter. Margins are not discrete and may be related to thickening of the breast capsule. No definite mass noted. Resp Effort & Inspection: normal respiratory effort GI Inspection: Yes normal to inspection Skin Other: Warm, dry, no rash Neuro General: patient oriented x3 Extrem General: Yes no clubbing, cyanosis or edema Assessment & Plan Assessment & Plan (1) Breast thickening: Code(s): N64.59 - Other signs and symptoms in breast Category: Medical Plan 41-year-old female patient presenting with complaints of a area of thickening in the left breast at the lower inner quadrant. She initially had a pustule over this location with this has subsequently healed. On examination there is an area of slightly increased thickening just above the inframammary crease at the lower inner quadrant. A discrete mass is not noted however this thickening is different than on the right side. I gave the patient an option of excision of this palpable area of thickening for diagnostic purposes verses observation and she is comfortable with observation as the lesion has not changed significantly in the past year. I recommended a follow-up visit in 6 months following her mammogram. She is welcome to call sooner for any new concerns. Coding Level of Care Code Est Pt Level 3 (55410) Diagnoses Breast thickening N64.59
--- OUTSIDE RECORDS SUMMARY | 2024-10-16 14:47 | XMS_ITS | Clinical Summary ---
Author Organization [facility] Address [address] [place] [address] Care Team Providers Care Laminating Machine Offbearer Name Role Phone Unavailable Primary Care Provider [...]
[2024-10-16 14:57] VITALS: BP 136/68; PULSE 79; BMI 43.7
== END 2024-10-16 15:11 | disposition home or self-care (01) ==
LOC: HO.HGS 14:46
PROVIDERS: PCP Internal Medicine; Visit Provider Surgery
DX: N64.59 Other signs and symptoms in breast (principal)
CPT/HCPCS: 99213

== ENCOUNTER 2024-10-17 11:21 | Outpatient (REF) | payer OTHER, SELFPAY ==
--- NOTE | ~2024-10-17 | US_ITS ---
CLINICAL HISTORY: N93.9 - Abnormal uterine and vaginal bleeding, unspecified US pelvis transabdominal and transvaginal with color Doppler Comparison: None Findings: Transabdominal scanning performed for overall anatomy. Transvaginal scanning performed for additional detail. LMP: 09/12/2024 Anteverted uterus, heterogeneous in echotexture measuring 9.6 x 5.2 x 6.6 cm. Well defined endometrium, measuring 10 mm in thickness. Uterine fibroids: 1. Posterior fundal intramural 0.7 x 0.7 x 0.7 cm 2. Mid fundal submucosal 0.9 x 0.8 x 1.0 cm 3. Anterior fundal intramural 0.9 x 0.9 x 1.1 cm The right ovary measures, 2.4 x 1.9 x 1.6 cm. Normal sonographic appearance right ovary. The left ovary measures, 3.4 x 1.7 x 1.7 cm. 12 mm dominant follicle. No adnexal masses or fluid collections. No free fluid Impression: 1. Leiomyomatous uterus. 2. Normal thickness endometrium 3. Normal ovaries/adnexa. This document has been electronically signed by: Dallas Sexton MD on 10/18/2024 15:25:01
--- OUTSIDE RECORDS SUMMARY | 2024-10-17 11:54 | XMS_ITS | Clinical Summary ---
Author Organization [facility] Address [address] [place] [address] Care Team Providers Care Manufacturing Leader Name Role Phone Unavailable Primary Care Provider [...]
== END 2024-10-17 11:22 | disposition home or self-care (01) ==
LOC: HO.US 11:21
PROVIDERS: PCP Internal Medicine; Visit Provider Advanced Practice Midwife
DX: N93.9 Abnormal uterine and vaginal bleeding, unspecified (principal)
CPT/HCPCS: 76830; 76856

== ENCOUNTER → 2024-10-17 11:24 | Outpatient (BNV) | payer OTHER, SELFPAY | PROVIDERS: PCP Internal Medicine; Visit Provider Radiology Diagnostic Radiology | DX: D25.9 Leiomyoma of uterus, unspecified (principal) | CPT/HCPCS: 76830; 76856 ==

== ENCOUNTER 2024-10-29 07:58 | Outpatient (AMB) | payer OTHER, SELFPAY ==
--- NOTE | 2024-10-29 08:01 | A.OFFVIS_ITS ---
Vital Signs 10/29/24 08:05 Height 5 ft 1 in BP 116/72 Blood Pressure Location Lt brachial Position Sitting Intake Visit Reasons: Ultrasound follow up/EMB Allergies Penicillins (PENICILLINS) Allergy (Unknown, Verified 10/16/24 14:56) HIVES HPI Comments Details: Patient is here for an ultrasound follow up and endometrial biopsy procedure. She has a history of abnormal uterine bleeding. Admits to heavy menstrual bleeding for out of 9 days. History of tubal ligation. UPT is negative. [facility] Medical History Breast thickening Skin lesion Morbid obesity with BMI of 40.0-44.9, adult Vitamin D deficiency GERD without esophagitis Chondromalacia patellae of right knee Pure hypercholesterolemia Chondromalacia, patella Allergic rhinitis Surgical History S/P laparoscopic cholecystectomy (~06/2020) History of tubal ligation Previous section Family History Father Esophageal cancer Mother Diabetes Maternal Uncle Colon cancer Social History Household Members: Spouse Housing: House Do you presently have visiting nurse or other home services: No Alcohol intake: current Alcohol intake frequency: holidays/special occasions only Comment: sleeping Patient Tobacco Use Status: Never used Tobacco e-Cigarette/Vaping Use: Never Used Second Hand Smoke Exposure: Yes service: No Current occupational status: employed Current occupation: [employer] Sexual orientation: Straight/Heterosexual Gender identity: Female Cognitive needs: No Hearing needs: No Vision needs: Yes Female Reproductive History Menstrual Age of Menarche: 13 Duration of menses: 3-5 days Date of last menstrual period: 10/17/24 control method: permanent sterilization Date of last pap smear: 05/11/21 History of abnormal pap smear: No Date of Mammogram: 02/21/24 History of abnormal mammogram: Yes Review of Systems Const All systems reviewed & are unremarkable except as noted in HPI and below Physical Exam Vital Signs: Last Vital Signs BP 116/72 10/29/24 08:05 Const General: cooperative, healthy appearing and no acute distress Orientation/consciousness: patient oriented x3 GI Inspection: Yes normal to inspection Palpation (GI): Soft to palpation and Other GI palpation findings present (Nontender) Rectal Exam - Female: visual inspection normal General: Yes bladder normal to palpation External Female Exam: normal appearance of the urethra Speculum Exam - Vagina: normal appearance of the vagina, normal palpation and normal vaginal discharge Speculum Exam - Cervix: normal appearance of the cervix and normal palpation Bimanual exam- vagina & uterus: normal bimanual exam, normal palpation, uterine size normal, bladder normal to palpation, normal palpation, uterine shape normal and non-tender Bimanual Exam- Adnexa, other: normal adnexae Neuro General: patient oriented x3 Office Procedures Endometrial Biopsy Details: The patient is here today for an endometrial biopsy due to AUB to rule out any pathology including atypical, hyperplasia or cancer cells of the uterus. She was counseled regarding anticipatory guidance for the procedure including the risks for pain, infection, bleeding, perforation, potential injury to the tissues may include the cervix, uterus, tubes, bladder and bowels. These injuries may include further treatment and evaluation including surgery, blood transfusions, antibiotics, hospitalizations and anesthesia. Permanent injury and scarring can occur. She was consented for the procedure, and the consent forms were signed. She is agreeable to have the procedure today. All questions were answered. Endometrial Biopsy Procedure: The patient was placed in the dorsal lithotomy position and a sterile speculum inserted. Using aseptic technique for the procedure. The cervix was cleansed with Betadine x 3 swabs. A single toothed tenaculum was placed on the cervix for stabilization and the uterus was sounded to 8 cm with a 4mm pipelle, and tissue sample obtained. Minimal bleeding was observed. The tissue sample was placed in formalin in a patient labeled container by staff assisting and sent to the pathology department for processing and interpretation. The patient tolerate the procedure well and was in good condition when leaving the department. Endometrial Biopsy Post Procedure Care: Nothing in the vagina including: tampons, douching or intimacy until all the bleeding has subsided. There may be some post procedure bleeding for several days, this bleeding is usually light and may turn to a light brown or pink color. Mild cramps may occurs. Nothing in the vaginal including: tampons, douching, or intimacy until all the bleeding has subsided. You may take an over the counter mild analgesic such as Tylenol or Advil (if no allergies) per the manufactures recommendation on dosing, frequency, and follow the directions completely. Call the office if any: fever (over 100.4), flu like symptoms, abdominal pain (worse than cramping), foul smelling, infected appearing vaginal discharge, or heavy bleeding. If indicated: Use condoms to prevent and STI's, and only after the bleeding has stopped completely. Return to the office in 2 weeks for results and plan of care. This note is constructed using voice recognition software. While every effort has been made to ensure accuracy, chef manager errors may have been included. [id number] Biopsy Results Reviewed Results Reviewed: [address] [address] Ultrasound Report Signed Patient: Jose Keen MR#: [id number] : 1975 Acct:[id number] Age/Sex: 49 / F ADM Date: 10/17/24 Loc: .[place] Attending Dr: Valerie Zeng CNM Ordering Physician: Valerie Zeng CNM Date of Service: 10/17/24 Procedure(s): US pelvic and transvaginal Accession Number(s): [id number] cc: Adrian Simons MD; Valerie Zeng CNM~ CLINICAL HISTORY: N93.9 - Abnormal uterine and vaginal bleeding, unspecified US pelvis transabdominal and transvaginal with color Doppler Comparison: None Findings: Transabdominal scanning performed for overall anatomy. Transvaginal scanning performed for additional detail. LMP: 09/12/2024 Anteverted uterus, heterogeneous in echotexture measuring 9.6 x 5.2 x 6.6 cm. Well defined endometrium, measuring 10 mm in thickness. Uterine fibroids: 1. Posterior fundal intramural 0.7 x 0.7 x 0.7 cm 2. Mid fundal submucosal 0.9 x 0.8 x 1.0 cm 3. Anterior fundal intramural 0.9 x 0.9 x 1.1 cm The right ovary measures, 2.4 x 1.9 x 1.6 cm. Normal sonographic appearance right ovary. The left ovary measures, 3.4 x 1.7 x 1.7 cm. 12 mm dominant follicle. No adnexal masses or fluid collections. No free fluid Impression: 1. Leiomyomatous uterus. 2. Normal thickness endometrium 3. Normal ovaries/adnexa. This document has been electronically signed by: Dallas Sexton MD on 10/18/2024 15:25:01 Dictated By: Dallas Sexton MD Signed By: <Electronically signed by Dallas Sexton MD in OV> 10/18/24 1525 DD/ 1525 TD/TT: 10/18/24 1525 Merchandiser Seasonal: Assessment & Plan Assessment & Plan (1) Abnormal uterine bleeding (AUB): Code(s): N93.9 - Abnormal uterine and vaginal bleeding, unspecified Category: Medical Plan: Endometrial biopsy completed. See procedure notes. Counseled regarding options for treatment and recommended gold standard Mirena IUD use for 5 years. Mirena booklet dispense. Discuss risks benefits, patient will consider. Advised if she decides to have the Mirena to call the office in advance for planning. The patient expressed understanding and agreement with the plan of care. All of her questions and concerns were addressed to the best of my ability. (2) Fibroid: Code(s): D21.9 - Benign neoplasm of connective and other soft tissue, unspecified Plan: Discussed: Ultrasound findings- Impression: 1. Leiomyomatous uterus. 2. Normal thickness endometrium 3. Normal ovaries/adnexa. Plan Counseled re: Leiomyoma: common pelvic neoplasm. Differential diagnosis-may include but not limited to- leiomyosarcoma which is a rare uterine sarcoma 3- 7/100,000, difficult to distinguish from fibroids on ultrasound from uterine sarcoma's. Unlikely any single test will have a highly positive predictive value. Hysterectomy is not recommended for sole purpose of excluding malignant neoplasm. Consult for surgical exploration, medical treatment, other treatments, verses expectant management, pros and cons, risks and benefits. Expectant management follow up in 6 months, then yearly for stability. Patient prefers to proceed with expectant management. Referral to MD if indicated for level of care if indicated Report any AUB, pelvic pressure, bloating, or pain. The patient expressed understanding and agreement with the plan of care. All of her questions and concerns were addressed to the best of my ability. This note is constructed using voice recognition software. While every effort has been made to ensure accuracy, chef manager errors may have been included. The patient expressed understanding and agreement with the plan of care. All of her questions and concerns were addressed to the best of my ability. This note is constructed using voice recognition software. While every effort has been made to ensure accuracy, chef manager errors may have been included. Orders: Orders US pelvic and transvaginal 6 Months D21.9 - Benign neoplasm of connective and other soft tissue, unspecified AMB Endometrial Biopsy Today N93.9 - Abnormal uterine and vaginal bleeding, unspecified Coding Level of Care Code Procedure Only Diagnoses Abnormal uterine bleeding (AUB) N93.9 Fibroid D21.9 CPT Codes Endometrial Biopsy - CPT: 81195-[id number] Biopsy ([id number])
--- OUTSIDE RECORDS SUMMARY | 2024-10-29 08:03 | XMS_ITS | Clinical Summary ---
Author Organization [facility] Address [address] [place] [address] Care Team Providers Care Log Roller Name Role Phone Unavailable Primary Care Provider [...]
[2024-10-29 08:05] VITALS: BP 116/72
== END 2024-10-29 09:23 | disposition home or self-care (01) ==
LOC: HO.HWS 07:59
PROVIDERS: PCP Internal Medicine; Visit Provider Advanced Practice Midwife
DX: N93.9 Abnormal uterine and vaginal bleeding, unspecified (principal); D25.9 Leiomyoma of uterus, unspecified
CPT/HCPCS: 58100

== ENCOUNTER → 2024-10-29 07:58 | Outpatient (BNVA) | payer OTHER, SELFPAY | PROVIDERS: PCP Internal Medicine; Visit Provider Advanced Practice Midwife | DX: N93.9 Abnormal uterine and vaginal bleeding, unspecified (principal); D21.9 Benign neoplasm of connective and other soft tissue, unspecified | CPT/HCPCS: 58100 ==

== ENCOUNTER 2024-10-29 09:56 | Outpatient (REF) | payer OTHER, SELFPAY ==
--- OUTSIDE RECORDS SUMMARY | 2024-11-04 10:14 | XMS_ITS | Clinical Summary ---
Author Organization [facility] Address [address] [place] [address] Care Team Providers Care Assistant Professor Nurse Education Name Role Phone Unavailable Primary Care Provider [...]
== END 2024-10-29 09:57 | disposition home or self-care (01) ==
LOC: HO.LNP 09:56
PROVIDERS: Visit Provider Advanced Practice Midwife
DX: N93.9 Abnormal uterine and vaginal bleeding, unspecified (principal)
CPT/HCPCS: 88305

== ENCOUNTER 2024-11-12 09:01 | Outpatient (AMB) | payer OTHER, SELFPAY ==
--- NOTE | 2024-11-12 09:02 | MHC.OFFVIS ---
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 She is planning to return for a Mirena IUD with her menses next month. History of tubal ligation. [facility] Medical History Breast thickening Skin lesion Morbid obesity with BMI of 40.0-44.9, adult Vitamin D deficiency GERD without esophagitis Chondromalacia patellae of right knee Pure hypercholesterolemia Chondromalacia, patella Allergic rhinitis Surgical History S/P laparoscopic cholecystectomy (~06/2020) History of tubal ligation Previous section Family History Father Esophageal cancer Mother Diabetes Maternal Uncle Colon cancer Social History Household Members: Spouse Housing: House Do you presently have visiting nurse or other home services: No Alcohol intake: current Alcohol intake frequency: holidays/special occasions only Comment: sleeping Patient Tobacco Use Status: Never used Tobacco e-Cigarette/Vaping Use: Never Used Second Hand Smoke Exposure: Yes service: No Current occupational status: employed Current occupation: [employer] Sexual orientation: Straight/Heterosexual Gender identity: Female Cognitive needs: No Hearing needs: No Vision needs: Yes Female Reproductive History Menstrual Age of Menarche: 13 Review of Systems Const All systems reviewed & are unremarkable except as noted in HPI and below Endo Reports no additional complaints Physical Exam Const General: cooperative, healthy appearing and no acute distress Psych Appearance: well kempt Attitude: cooperative Thought process: Normal thought process present Results Reviewed Results Reviewed: Surgical Pathology [id number] Name: Jose Keen Age/Sex: 49/F Attending: Valerie Zeng CNM : 1975 Submitted by: Valerie Zeng CNM Copies to: MR #: [id number] Status: DEP REF Collected: 10/29/24 Location: [place] Received: 11/04/24 Diagnosis Endometrium, biopsy: Benign proliferative endometrium; no atypia or carcinoma. Clinical History AUB Microscopic Description Microscopic sections reviewed. Material Received Endometrial biopsy Gross Description Received in formalin labeled EMB? is a 1.8 x 1.5 x 0.45 cm aggregate of multiple tubular cast fragments of congested and hemorrhagic romeo-pink and red-maroon tissue and blood, submitted in toto in a cassette labeled A. CEDS NOTE: Unless otherwise stated, all tissue is formalin-fixed and paraffin-embedded. Some or all of the immunohistochemical tests reported herein may have been developed and their performance characteristics determined by [facility]. They have not been cleared or approved by the U.S. Food and Drug Administration (FDA). However, the FDA has determined that such clearance or approval is not necessary. This laboratory is certified under the Clinical Laboratory Improvement Amendments of 1988 (CLIA) as qualified to perform high complexity clinical laboratory testing. Electronically Signed By: Simran Banegas 11/05/24 4627 Patient: Jose Keen Age/Sex: 49/F MR#: [id number] Page 1 of 1 Assessment & Plan Assessment & Plan (1) Abnormal uterine bleeding (AUB): Code(s): N93.9 - Abnormal uterine and vaginal bleeding, unspecified Category: Medical Plan: Reviewed Mirena risks benefits. Plan insertion after her vacation next cycle, advised preprocedure planning to have something to eat and drink and take 3 ibuprofen 1 hour before her appointment. The patient expressed understanding and agreement with the plan of care. All of her questions and concerns were addressed to the best of my ability. (2) Encounter to discuss test results: Code(s): Z71.2 - Person consulting for explanation of examination or test findings Plan: Discussed: Endometrial biopsy results- Diagnosis Endometrium, biopsy: Benign proliferative endometrium; no atypia or carcinoma. The patient expressed understanding and agreement with the plan of care. All of her questions and concerns were addressed to the best of my ability. Plan This note is constructed using voice recognition software. While every effort has been made to ensure accuracy, director of trauma errors may have been included. Coding Level of Care Code Est Pt Level 3 (73200) Diagnoses Abnormal uterine bleeding (AUB) N93.9 Encounter to discuss test results Z71.2
--- OUTSIDE RECORDS SUMMARY | 2024-11-12 09:14 | XMS_ITS | Clinical Summary ---
Author Organization [facility] Address [address] [place] [address] Care Team Providers Care Chemistry Faculty Member Name Role Phone Unavailable Primary Care Provider [...]
== END 2024-11-12 10:06 | disposition home or self-care (01) ==
LOC: HO.HWS 09:01
PROVIDERS: PCP Internal Medicine; Visit Provider Advanced Practice Midwife
DX: N93.9 Abnormal uterine and vaginal bleeding, unspecified (principal); Z71.2 Person consulting for explanation of examination or test findings
CPT/HCPCS: 99213

== ENCOUNTER 2024-12-30 07:53 | Outpatient (REF) | payer OTHER, SELFPAY ==
--- OUTSIDE RECORDS SUMMARY | 2024-12-30 07:57 | XMS_ITS | Clinical Summary ---
Author Organization [facility] Address [address] [place] [address] Care Team Providers Care Vest Baster Name Role Phone Unavailable Primary Care Provider [...]
== END 2024-12-30 07:54 | disposition home or self-care (01) ==
LOC: HO.MAMMO 07:53
PROVIDERS: PCP Internal Medicine; Visit Provider Internal Medicine
DX: Z12.31 Encounter for screening mammogram for malignant neoplasm of breast (principal)
CPT/HCPCS: 77063; 77067

== ENCOUNTER → 2024-12-30 08:00 | Outpatient (BNV) | payer OTHER, SELFPAY | PROVIDERS: PCP Internal Medicine; Visit Provider Internal Medicine | DX: Z12.31 Encounter for screening mammogram for malignant neoplasm of breast (principal) | CPT/HCPCS: 77063; 77067 ==

== ENCOUNTER 2025-02-25 12:47 | Outpatient (REF) | payer OTHER, SELFPAY ==
--- NOTE | ~2025-02-25 | US_ITS ---
EXAMINATION: US DIAGNOSTIC ULTRASOUND BREAST, LEFT CLINICAL INFORMATION: 6 month follow-up for hypoechoic adjacent masses at 11:00 7 cm from the nipple in the left breast were recommended.. COMPARISON: Comparison is made with relevant prior imaging. TECHNIQUE: Ultrasound of the breast is performed with real-time jeffrey scale imaging and color Doppler. FINDINGS: Targeted color Doppler ultrasound scanning at 11:00 7 cm from the nipple again demonstrates 2 hypoechoic adjacent oval solid masses versus complicated cysts one measuring 4 x 6 x 4 mm and the smaller adjacent measuring 3 x 2 x 2 mm are not significantly changed from prior ultrasounds dating back for 6 months. Results are discussed with the patient at time of visit. US/US Breast LT Limited Mamm Only IMPRESSION: 2 adjacent hypoechoic oval circumscribed solid masses versus complicated cyst at 11:00 7 cm from the nipple stable from prior ultrasound dating back for 6 months ago. Recommend 6 month follow-up ultrasound for further evaluation of stability. ASSESSMENT: BI-RADS 3: Probably Benign RECOMMENDATION: Diagnostic ultrasound in 6 months. This patient's information was entered into a reminder system with a target due date for their next mammogram. Electronically signed by: Romana Tovar DO 02/25/2025 02:09 PM [facility]
== END 2025-02-25 12:48 | disposition home or self-care (01) ==
LOC: HO.MAMMO 12:47
PROVIDERS: PCP Internal Medicine; Visit Provider Internal Medicine
DX: N63.22 Unspecified lump in the left breast, upper inner quadrant (principal)
CPT/HCPCS: 76642

== ENCOUNTER → 2025-02-25 13:30 | Outpatient (BNV) | payer OTHER, SELFPAY | PROVIDERS: PCP Internal Medicine; Visit Provider Internal Medicine | DX: N63.22 Unspecified lump in the left breast, upper inner quadrant (principal) | CPT/HCPCS: 76642 ==